=== PATIENT | male | born 1935 | race Caucasian/White ===

== ENCOUNTER 2019-08-16 13:09 | Inpatient (IN) | payer MEDICARE ==
--- NOTE | 2019-08-17 01:13 | P.HPIM ---
History of Present Illness H&P Date: 08/16/19 Chief Complaint: abd pain and coughing I was wearing full PPE during this encounter including N95 mask, face shield, double gloves, gown, and head cover. patient had a surgical mask on during my entire interview. i maintained 6 feet distance with the patient who verbalized understanding about these precautionary measures. except for during my physical exam where i had to be close to the patient. 83-year-old male with hypertension controlled with meds, gout, hyperlipidemia Patient was transferred from [facility] due to reaching capacity he tested positive for covid with 19 Patient wants to [facility] complaining of one-week history of abdominal pain described it as right upper quadrant pain radiating to the all the abdomen he rated his pain as 6 out of 10 in severity gets worse with coughing. He also reported no nausea no vomiting and denies any diarrhea. The symptoms has been associated with fevers and chills, and coughing dry in nature not associated with any shortness of breath. He reports loss of taste sensation. But otherwise denies any GI bleeding denies any urinary symptoms denies any focal neuro deficits He denies recent traveling denies sick contacts with any confirmed Covid pa erasmo's Transfers papers from [facility] has handwritten notes indicating that he tested positive for Covid 19, and he was being treated accordingly he was given doxycycline and Rocephin. CT angios of the chest showed patchy opacities bilaterally, there were no associated blood work or any further information, but it with these papers Review of Systems Pertinent positives as noted in HPI. All other systems were reviewed and are negative Past Medical History Past Medical History: Hypertension Additional Past Medical History / Comment(s): Gout, hyperlipidemia History of Any Multi-Drug Resistant Organisms: None Reported Smoking Status: Former smoker - Past Family History Family Family Medical History: No Reported History Medications and Allergies Home Medications Medication Instructions Recorded Confirmed Type Allopurinol [Zyloprim] 100 mg PO DAILY 08/16/19 08/16/19 History Aspirin EC [Ecotrin Low Dose] 81 mg PO DAILY 08/16/19 08/16/19 History Atorvastatin [Lipitor] 40 mg PO HS 08/16/19 08/16/19 History Celecoxib [CeleBREX] 100 mg PO BID PRN 08/16/19 08/16/19 History Irbesartan [Avapro] 150 mg PO DAILY 08/16/19 08/16/19 History Metoprolol Tartrate 25 mg PO BID 08/16/19 08/16/19 History Multivitamins, Thera [Multivitamin 1 tab PO DAILY 08/16/19 08/16/19 History (formulary)] Allergies Allergy/AdvReac Type Severity Reaction Status Date / Time No Known Allergies Allergy Verified 08/16/19 21:31 Physical Exam Vitals: Vital Signs Temp Pulse BP Pulse Ox 08/16/19 19:15 98.8 F 78 168/74 97 08/16/19 17:50 98.4 F 77 179/81 97 Intake and Output 08/16/19 08/16/19 08/17/19 14:59 22:59 06:59 Output Total 550 Balance -550 Output: Urine 550 Other: Voiding Method Urinal Urinal # Voids 1 Weight 85.729 kg Constitutional: No acute distress, conversant, pleasant, currently on room air Eyes: Anicteric sclerae, patient has conjunctivitis, Pupils equal round reactive to light ENMT: NC/AT Oropharynx clear, no erythema, or exudates Neck: Supple, FROM, no masses, or JVD No carotid bruits No thyromegaly Lungs: Clear to auscultation Clear to percussion Normal respiratory effort, no accessory muscle use Cardiovascular: Heart regular in rate and rhythm, No murmurs, gallops, or rubs No peripheral edema Abdominal: Soft Diffuse tenderness to palpation of the abdomen mainly in the right upper quadrant Mayberry sign negative there is voluntary guarding no rebound or rigidity Abdomen moving with respiration Normoactive bowel sounds No hepatomegaly, No splenomegaly No palpable mass Skin: Normal temperature, tone, texture, turgor No induration No subcutaneous nodules No rash, lesions No ulcers Extremities: No digital cyanosis No clubbing Pedal pulses intact and symmetrical Radial pulses intact and symmetrical No calf tenderness Psychiatric: Alert and oriented to person, place and time Appropriate affect fair judgement Neuro Muscles Strength 5/5 in all 4 extremities Sensation to light touch grossly present throughout Cranial nerves II-XII grossly intact No focal sensory deficits Lymphatics: no palpable cervical or supraclavicular , or inguinal lymph nodes Thrombosis Risk Factor Assmnt - Choose All That Apply Any of the Below Risk Factors Present?: Yes Each Factor Represents 1 point: Serious lung disease incl. pneumonia (< 1month) Other Risk Factors: Yes Each Risk Factor Represents 3 Points: Age 75 years or older Thrombosis Risk Factor Assessment Total Risk Factor Score: 4 Thrombosis Risk Factor Assessment Level: Moderate Risk Assessment and Plan Assessment: 83-year-old male with hypertension controlled with medications Patient transferred from [facility] due to reaching capacity. Patient diagnosed with Covid 19 confirmed by swab Patient is also having some significant abdominal pain upon exam, transfers drew r were deficient patient will have to have full workup during this hospital stay Anticipated length of stay more than 2 midnights Atypical pneumonia secondary to Covid 19 positive infection cannot rule out underlying bacterial infection Follow-up cultures Check influenza Covid 19 confirmed positive at [facility] Monitor pulse ox every 2 hours Supplemental oxygen to keep oxygen sats above 92% Start patient on Rocephin and doxycycline for bacterial and atypical pneumonias Start patient on Plaquenil due to confirmed testing and patient age patient is high risk Check EKG Check full set of labs for prognostic evaluation including d-dimer, from calcitonin, cRP, creatine kinase, LDH, troponin, Bnp, LFTs, CBC, ferritin, Contact and droplet precautions Maintain patient on negative IV fluid balance Abdominal pain without nausea vomiting or diarrhea Mainly right upper quadrant Check LFTs, check abdominal ultrasound Due to concerns regarding transmitting and spreading of this disease I will avoid CT of the abdomen at this time besides patient has already received CT angiogram of the chest at the other facility this will put him at increased risk of acute kidney injury Chronic conditions Hypertension, hyperlipidemia, gout Resume home meds Preformed a thorough record review from recent hospitalization from [facility] transfer papers were reviewed however they were deficient probably lost during transfer CODE STATUS:full code DVT prophylaxis: heaprin sc tid Discussed with: Patient, ER,rn Anticipated length of stay > than [address]: home A total of 60 minutes was spent on the care of this complex patient more than 50% of the time was spent in counseling and care coordination.
[2019-08-17] MEDS: METOPROLOL TARTRATE 25 MG TAB PO SCH ×3 (01:15→21:03)
[2019-08-17] MEDS: HYDROXYCHLOROQUINE SULFATE 200 MG TAB PO SCH ×3 (01:16→21:03)
[2019-08-17] MEDS: DOXYCYCLINE 100 MG CAP PO SCH ×3 (01:16→21:03)
--- NOTE | 2019-08-17 01:47 | XR ---
EXAMINATION TYPE: XR chest 1V DATE OF EXAM: 08/17/2019 COMPARISON: NONE HISTORY: Cough TECHNIQUE: Single view FINDINGS: There is mild pulmonary congestion. There is interstitial infiltrates in the lower lobes. T here is slight blunting of the costophrenic angles. There are chest leads. Bony thorax is intact. IMPRESSION: Mild congestive heart failure. Small pleural effusions.
[2019-08-17 01:52] LABS: Basophils % (A) 0 %; Eosinophils % (A) 1 %; HCT 42.4 % (39.0-53.0); HGB 13.8 gm/dL (13.0-17.5); Lymphocytes # (A) 0.9 k/uL (1.0-4.8); Lymphocytes % (A) 26 %; MCH 23.3 pg (25.0-35.0); MCHC 32.6 g/dL (31.0-37.0); MCV 71.3 fL (80.0-100.0); Microcytosis Moderate; Monocytes # (A) 0.2 k/uL (0-1.0); Monocytes % (A) 5 %; Neutrophils # (A) 2.2 k/uL (1.3-7.7); Neutrophils % (A) 65 %; RBC 5.94 m/uL (4.30-5.90); RDW 14.6 % (11.5-15.5); WBC 3.3 k/uL (3.8-10.6)
[2019-08-17 02:05] LABS: ALT 40 U/L (4-49); AST 72 U/L (17-59); African American GFR (CKD) >90 (>60 ml/min/1.73 sqM); Albumin 3.7 g/dL (3.5-5.0); Alkaline Phosphatase 54 U/L (38-126); Anion Gap 9 mmol/L; Blood Urea Nitrogen 15 mg/dL (9-20); C Reactive Protein 32.4 mg/L (<10.0); Calcium 7.8 mg/dL (8.4-10.2); Carbon Dioxide 21 mmol/L (22-30); Chloride 96 mmol/L (98-107); Creatine Kinase 654 U/L (55-170); Glucose 112 mg/dL (74-99); LDH 882 U/L (313-618); Non-African American GFR(CKD) 82 (>60 ml/min/1.73 sqM); Phosphorus 2.6 mg/dL (2.5-4.5); Sodium 126 mmol/L (137-145); Total Bilirubin 0.7 mg/dL (0.2-1.3); Total Protein 6.9 g/dL (6.3-8.2)
[2019-08-17 02:10] LABS: Ovalocytes Present; Platelet Count 52 k/uL (150-450)
[2019-08-17 02:11] LABS: D-Dimer 0.57 mg/L FEU (<0.60)
[2019-08-17 03:30] LABS: Appearance,Urine Clear (Clear); Bilirubin,Urine Negative (Negative); Blood,Urine Small (Negative); Color,Urine Yellow; Glucose,Urine (UA) Negative (Negative); Ketones,Urine 1+ (Negative); Leukocyte Esterase,Urine Negative (Negative); Mucus,Urine Rare /hpf; Nitrite,Urine Negative (Negative); Protein,Urine 1+ (Negative); RBC,Urine 6 /hpf (0-5); Specific Gravity,Urine 1.028 (1.001-1.035); Urobilinogen,Urine <2.0 mg/dL (<2.0); WBC,Urine 1 /hpf (0-5)
[2019-08-17] MEDS: ALLOPURINOL 100 MG TAB PO SCH (08:32)
[2019-08-17] MEDS: HEPARIN SODIUM,PORCINE 5,000 UNIT/ML 1 ML VIAL SQ SCH ×3 (08:32→23:22)
[2019-08-17] MEDS: LOSARTAN 50 MG TAB PO SCH (08:32)
[2019-08-17] MEDS: ASPIRIN 81 MG PO SCH (08:33)
--- NOTE | 2019-08-17 08:50 | US ---
EXAMINATION TYPE: US abdomen complete DATE OF EXAM: 08/17/2019 COMPARISON: NONE CLINICAL HISTORY: RUQ abd pain . + Hicks. Generalized pain. NPO. Suboptimal exam due to patient breathing and bowel gas EXAM MEASUREMENTS: Liver Length: 13.2 cm Gallbladder Wall: 0.2 cm CBD: 0.3 cm Spleen: 10.6 cm Right Kidney: 10.2 x 5.4 x 4.8 cm Left Kidney: 10.1 x 4.5 x 5.1 cm Pancreas: Obscured by bowel gas Liver: Limited visualization due to ribs, bowel gas and patient breathing. Gallbladder: No stones seen Evidence for sonographic Mayberry's sign: neg CBD: wnl Spleen: wnl Right Kidney: No hydronephrosis or masses seen Left Kidney: No hydronephrosis or masses seen Upper IVC: limited visualization Abd Aorta: Mid portion obscured by overlying bowel gas The pancreas is obscured. Limited views of the liver demonstrate a normal sized liver without biliary dilatation. The gallbladder is normal. The gallbladder wall measures 2 mm. The distal common hepatic duct measure s 3 mm. There is no sonographic Mayberry's sign. Both kidneys are unremarkable. Limited views of the aorta and IVC are normal. IMPRESSION: NORMAL ABDOMINAL ULTRASOUND.
[2019-08-17 11:42] LABS: Ferritin 1504.8 ng/mL (22.0-322.0)
[2019-08-17] MEDS: ACETAMINOPHEN TAB 325 MG TAB PO PRN (14:56)
--- NOTE | 2019-08-17 17:56 | P.PN ---
Subjective Progress Note Date: 08/17/19 (delayed charting seen at 1020) Principal diagnosis: shortness of breath Patient is an 83-year-old male with a past medical history of hypertension controlled with medication, gout, and dyslipidemia who presented to [facility] with a one-week history of right upper quadrant pain and coughing. He was transferred here as part of the [facility] relief process. He underwent a CT of the chest which showed patchy opacities bilaterally. He was started on Doxy and hydroxychloroquine. He had fevers up to 101.9 on the night of admission. Laboratory analysis showed lymphopenia, hyponatremia, elevated ferritin, AST 72, LDH 882, CPK 654, and CRP 32.4. Pro-calcitonin was negative. Influenza A and B were negative. Chest x-ray showed bilateral interstitial infiltrates in the lower lobes. He underwent an abdominal ultrasound which was nonacute. Patient seen and examined at bedside. He denies any pain, shortness of breath, cough, nausea, vomiting. Objective - Vital Signs Vital signs: Vital Signs Temp 100.5 F H 08/17/19 15:00 Pulse 92 08/17/19 15:00 Resp 18 08/17/19 15:30 BP 123/77 08/17/19 15:00 Pulse Ox 94 L 08/17/19 15:00 Intake & Output 08/16/19 08/17/19 08/17/19 18:59 06:59 18:59 Intake Total 514 Output Total 550 Balance -550 514 Weight 85.729 kg Intake: Oral 514 Output: Urine 550 Other: Voiding Method Urinal # Voids 1 1 - Exam General: Ill appearing, I'll distress, appears at stated age Derm: warm, dry Head: atraumatic, normocephalic, symmetric Eyes: EOMI, no lid lag, anicteric sclera Mouth: no lip lesion, mucus membranes moist Cardiovascular: S1S2 reg, no murmur, positive posterior tibial pulse bilateral, Lungs: Coarse breath sounds bilateral, no accessory muscle use Abdominal: soft, nontender to palpation, no guarding, no appreciable organomegaly Ext: no gross muscle atrophy, no edema, no contractures Neuro: CN II-XI grossly intact, no focal neuro deficits Psych: Alert, oriented, flat affect - Labs CBC & Chem 7: 08/17/19 01:29 08/17/19 01:29 Labs: Abnormal Lab Results - Last 24 Hours (Table) 08/17/19 08/17/19 08/17/19 Range/Units 01:29 01:29 03:00 WBC 3.3 L (3.8-10.6) k/uL RBC 5.94 H (4.30-5.90) m/uL MCV 71.3 L (80.0-100.0) fL MCH 23.3 L (25.0-35.0) pg Plt Count 52 L (150-450) k/uL Lymphocytes # 0.9 L (1.0-4.8) k/uL Sodium 126 L (137-145) mmol/L Chloride 96 L (98-107) mmol/L Carbon Dioxide 21 L (22-30) mmol/L Glucose 112 H (74-99) mg/dL Calcium 7.8 L (8.4-10.2) mg/dL Ferritin 1504.8 H (22.0-322.0) ng/mL AST 72 H (17-59) U/L Lactate Dehydrogenase 882 H (313-618) U/L Creatine Kinase 654 H (55-170) U/L C-Reactive Protein 32.4 H (<10.0) mg/L Urine Protein 1+ H (Negative) Urine Ketones 1+ H (Negative) Urine Blood Small H (Negative) Urine RBC 6 H (0-5) /hpf Urine Mucus Rare H (None) /hpf Assessment and Plan Assessment: Bilateral pneumonia, atypical consistent with possible covert 19 infection acute hypoxic respiratory failure -On hydroxychloroquine -Limit fluids -Supportive care -Continue with doxycycline doubt bacterial pneumonia with negative prophylaxis: -Limit IV fluids -Follow d-dimer, ferritin, LDH, CPK, and CRP Hyponatremia undetermined cause -Encourage oral fluid intake -Repeat BMP and add fluids if continues to be low -Repeat BMP in a.m. Thrombocytopenia, suspect reactive -Follow CBC Hypertension -Continue with metoprolol and ARB -Follow blood pressures Dyslipidemia -Continue statin therapy DVT prophylaxis: Heparin Discussed with: patient, son Anticipated discharge: 2-[address]: home A total of 35 minutes was spent on the care of this complex patient more than 50% of the time was spent in counseling and care coordination.
[2019-08-17] MEDS: SODIUM CHLORIDE 0.9% 1,000 ML IV SCH (18:04)
[2019-08-17 18:06] LABS: Potassium 4.2 mmol/L (3.5-5.1)
[2019-08-17] MEDS: ATORVASTATIN 40 MG TAB PO SCH (21:03)
[2019-08-18] MEDS: ACETAMINOPHEN TAB 325 MG TAB PO PRN ×2 (04:17→16:58)
[2019-08-18 07:43] LABS: Basophils % (A) 1 %; Eosinophils % (A) 0 %; HCT 40.3 % (39.0-53.0); HGB 12.9 gm/dL (13.0-17.5); Lymphocytes % (A) 34 %; MCH 23.2 pg (25.0-35.0); MCV 72.3 fL (80.0-100.0); Microcytosis Slight; Monocytes # (A) 0.2 k/uL (0-1.0); Monocytes % (A) 5 %; Neutrophils # (A) 1.7 k/uL (1.3-7.7); Neutrophils % (A) 57 %; RBC 5.57 m/uL (4.30-5.90); RDW 14.7 % (11.5-15.5); WBC 3.1 k/uL (3.8-10.6)
[2019-08-18 07:49] LABS: Platelet Count 76 k/uL (150-450)
[2019-08-18 07:56] LABS: Albumin 3.1 g/dL (3.5-5.0); Calcium 7.5 mg/dL (8.4-10.2); Potassium 4.3 mmol/L (3.5-5.1); Total Bilirubin 0.7 mg/dL (0.2-1.3)
[2019-08-18] MEDS: DOXYCYCLINE 100 MG CAP PO SCH (08:36)
[2019-08-18] MEDS: METOPROLOL TARTRATE 25 MG TAB PO SCH ×2 (08:36→21:15)
[2019-08-18] MEDS: HEPARIN SODIUM,PORCINE 5,000 UNIT/ML 1 ML VIAL SQ SCH ×3 (08:36→23:36)
[2019-08-18] MEDS: HYDROXYCHLOROQUINE SULFATE 200 MG TAB PO SCH ×2 (08:36→21:15)
[2019-08-18] MEDS: LOSARTAN 50 MG TAB PO SCH (08:36)
[2019-08-18] MEDS: ASPIRIN 81 MG PO SCH (08:37)
[2019-08-18] MEDS: ALLOPURINOL 100 MG TAB PO SCH (08:37)
[2019-08-18] MEDS: SODIUM CHLORIDE 0.9% 1,000 ML IV SCH ×2 (08:37→21:16)
--- NOTE | 2019-08-18 09:15 | XR ---
EXAMINATION TYPE: XR chest 1V portable DATE OF EXAM: 08/18/2019 HISTORY: pneumonia. REFERENCE: Previous study dated 08/17/2019. FINDINGS: The heart is mildly prominent. Pulmonary vasculature has returned to normal. There are patc hy peripheral infiltrates present bilaterally. The heart is enlarged. A new metallic density projects over the thoracic aorta. I am uncertain as to the etiology of this. Pleural spaces are clear.. IMPRESSION: 1. CARDIOMEGALY. 2. METALLIC FOREIGN BODY PROJECTS OVER THE CHEST. 3. PATCHY BILATERAL INFILTRATES MAY HAVE WORSENED SLIGHTLY FROM THE PREVIOUS STUDY. IMPRESSION:
[2019-08-18] MEDS: ZINC SULFATE 220 MG CAP PO SCH (10:44)
--- NOTE | 2019-08-18 15:37 | P.PN ---
Subjective Progress Note Date: 08/18/19 (delayed charting seen at 1130) Principal diagnosis: shortness of breath Patient is an 83-year-old [place] male with a past medical history of hypertension controlled with medication, gout, and dyslipidemia who presented to [facility] with a one-week history of right upper quadrant pain and coughing. He was transferred here as part of the Covnh relief process. He underwent a CT of the chest which showed patchy opacities bilaterally. He was started on Doxy and hydroxychloroquine. He had fevers up to 101.9 on the night of admission. Laboratory analysis showed lymphopenia, hyponatremia, elevated ferritin, AST 72, LDH 882, CPK 654, and CRP 32.4. Pro-calcitonin was negative. Influenza A and B were negative. Chest x-ray showed bilateral interstitial infiltrates in the lower lobes. He underwent an abdominal ultrasound which was nonacute. He continued to spike fevers after admission with a T-max of 100.5 on 08/17/2019. Patient seen and examined at bedside. He appears more comfortable today. He again denies chest pain, shortness breath, nausea, vomiting. Still not eating much. Objective - Vital Signs Vital signs: Vital Signs Temp 100.0 F H 08/18/19 15:03 Pulse 81 08/18/19 15:03 Resp 18 08/18/19 15:03 BP 152/76 08/18/19 15:03 Pulse Ox 94 L 08/18/19 15:03 Intake & Output 08/17/19 08/18/19 08/18/19 18:59 06:59 18:59 Intake Total 514 150 875 Balance 514 150 875 Intake: Intake, IV Titration 600 Amount Sodium Chloride 0.9% 1, 600 000 ml @ 75 mls/hr IV . [id number] [facility] Rx#:[id number] Oral 514 150 275 Other: Voiding Method Urinal # Voids 1 1 1 - Exam General: Ill appearing, no distress, appears at stated age Derm: warm, dry Head: atraumatic, normocephalic, symmetric Eyes: EOMI, no lid lag, anicteric sclera Mouth: no lip lesion, mucus membranes dry Cardiovascular: S1S2 reg, no murmur, positive posterior tibial pulse bilateral, Lungs: Coarse breath sounds bilateral, no accessory muscle use Abdominal: soft, nontender to palpation, no guarding, no appreciable organomegaly Ext: no gross muscle atrophy, no edema, no contractures Neuro: CN II-XI grossly intact, no focal neuro deficits Psych: Alert, oriented, flat affect - Labs CBC & Chem 7: 08/18/19 07:17 08/18/19 07:17 Labs: Abnormal Lab Results - Last 24 Hours (Table) 08/17/19 08/18/19 08/18/19 Range/Units 17:39 07:17 07:17 WBC 3.1 L (3.8-10.6) k/uL Hgb 12.9 L (13.0-17.5) gm/dL MCV 72.3 L (80.0-100.0) fL MCH 23.2 L (25.0-35.0) pg Plt Count 76 L (150-450) k/uL Sodium 129 L 130 L (137-145) mmol/L Chloride 96 L (98-107) mmol/L Carbon Dioxide 19 L (22-30) mmol/L Glucose 123 H (74-99) mg/dL Calcium 8.0 L 7.5 L (8.4-10.2) mg/dL AST 110 H (17-59) U/L ALT 74 H (4-49) U/L Total Protein 6.0 L (6.3-8.2) g/dL Albumin 3.1 L (3.5-5.0) g/dL Microbiology - Last 24 Hours (Table) 08/17/19 01:29 Blood Culture - Preliminary Blood No Growth after 24 hours Assessment and Plan Assessment: Bilateral pneumonia due to COVID-19 infection, acute hypoxic respiratory failure -On hydroxychloroquine -Limit fluids -Supportive care -stop doxy -Limit IV fluids -Follow d-dimer, ferritin, LDH, CPK, and CRP Transaminitis due to above - continue to monitor Hyponatremia due to hypovolemia -Encourage oral fluid intake - IV fluids gentle with infection -Repeat BMP in a.m. Thrombocytopenia, suspect reactive -Follow CBC Hypertension -Continue with metoprolol and ARB -Follow blood pressures Dyslipidemia -Continue statin therapy Son update on + COVID 19 PCR, Son is a physician in [place]. [phone] The patient cannot be safely quarantined at home due to: - Hypoxic Respiratory failure as describe by increasing oxygen from 0-2 L nasal cannula and concomitant lowering of oxygen saturations DVT prophylaxis: Heparin Discussed with: patient, son Anticipated discharge: 2-[address]: home A total of 35 minutes was spent on the care of this complex patient more than 50% of the time was spent in counseling and care coordination.
[2019-08-18] MEDS: ATORVASTATIN 40 MG TAB PO SCH (21:16)
[2019-08-19] MEDS: ACETAMINOPHEN TAB 325 MG TAB PO PRN ×2 (03:51→12:58)
[2019-08-19 06:56] LABS: Basophils % (A) 0 %; Eosinophils % (A) 0 %; HGB 12.3 gm/dL (13.0-17.5); Lymphocytes # (A) 0.8 k/uL (1.0-4.8); Lymphocytes % (A) 25 %; MCH 22.5 pg (25.0-35.0); MCHC 31.5 g/dL (31.0-37.0); MCV 71.3 fL (80.0-100.0); Mean Platelet Volume 7.8; Microcytosis Moderate; Monocytes # (A) 0.1 k/uL (0-1.0); Monocytes % (A) 4 %; Neutrophils # (A) 2.1 k/uL (1.3-7.7); Neutrophils % (A) 68 %; Platelet Count 105 k/uL (150-450); RBC 5.48 m/uL (4.30-5.90); RDW 14.6 % (11.5-15.5); WBC 3.1 k/uL (3.8-10.6)
[2019-08-19 07:06] LABS: C Reactive Protein 46.8 mg/L (<10.0)
[2019-08-19 07:24] LABS: ALT 91 U/L (4-49); AST 124 U/L (17-59); African American GFR (CKD) >90 (>60 ml/min/1.73 sqM); Albumin 2.9 g/dL (3.5-5.0); Alkaline Phosphatase 56 U/L (38-126); Anion Gap 8 mmol/L; Blood Urea Nitrogen 15 mg/dL (9-20); Calcium 7.3 mg/dL (8.4-10.2); Carbon Dioxide 20 mmol/L (22-30); Chloride 102 mmol/L (98-107); Creatine Kinase 740 U/L (55-170); Glucose 92 mg/dL (74-99); LDH 1378 U/L (313-618); Non-African American GFR(CKD) 81 (>60 ml/min/1.73 sqM); Sodium 130 mmol/L (137-145); Total Bilirubin 0.8 mg/dL (0.2-1.3); Total Protein 5.7 g/dL (6.3-8.2)
[2019-08-19] MEDS: ZINC SULFATE 220 MG CAP PO SCH (08:30)
[2019-08-19] MEDS: METOPROLOL TARTRATE 25 MG TAB PO SCH ×2 (08:30→20:30)
[2019-08-19] MEDS: ALLOPURINOL 100 MG TAB PO SCH (08:30)
[2019-08-19] MEDS: LOSARTAN 50 MG TAB PO SCH (08:30)
[2019-08-19] MEDS: HEPARIN SODIUM,PORCINE 5,000 UNIT/ML 1 ML VIAL SQ SCH ×2 (08:30→17:06)
[2019-08-19] MEDS: ASPIRIN 81 MG PO SCH (08:30)
[2019-08-19] MEDS: HYDROXYCHLOROQUINE SULFATE 200 MG TAB PO SCH ×2 (08:31→20:30)
[2019-08-19 13:07] LABS: Ferritin 2490.4 ng/mL (22.0-322.0)
--- NOTE | 2019-08-19 13:18 | P.PN ---
<Gabriela Hodge - Last Filed: 08/19/19 13:18> Subjective Progress Note Date: 08/19/19 CHIEF COMPLAINT: Covid 19 HISTORY OF PRESENT ILLNESS: 08/18/2019: Patient is an 83-year-old [place] male with a past medical history of hypertension controlled with medication, gout, and dyslipidemia who presented to [facility] with a one-week history of right upper quadrant pain and coughing. He was transferred here as part of the Covid relief process. He underwent a CT of the chest which showed patchy opacities bilaterally. He was started on Doxy and hydroxychloroquine. He had fevers up to 101.9 on the night of admission. Laboratory analysis showed lymphopenia, hyponatremia, elevated ferritin, AST 72, LDH 882, CPK 654, and CRP 32.4. Pro-calcitonin was negative. Influenza A and B were negative. Chest x-ray showed bilateral interstitial infiltrates in the lower lobes. He underwent an abdominal ultrasound which was nonacute. He continued to spike fevers after admission with a T-max of 100.5 on 08/17/2019. 08/19/2019: Patient examined at the bedside. Nursing reports patient was refusing to wear nasal cannula this morning. He is now agreeable to wear his oxygen. He is currently on 4L NC. 02 sats 94%. Patient febrile 100.7. He denies shortness of breath. Reports minimal cough. WBC 3.1. Hemoglobin 12.3. Platelet count 105. Ferritin 2490. LDH 1378. Creatinine kinase 740. C-reactive protein 46.8. PHYSICAL EXAM: VITAL SIGNS: Reviewed GENERAL: Well-developed in no acute distress. HEENT: No sclera icterus. Extraocular movements grossly intact. Moist buccal mucosa. Head is atraumatic, normocephalic. Hears conversational speech. No nasal drainage. NECK: Supple without lymphadenopathy. CHEST: Lung sounds coarse throughout. Non-labored respirations and equal bilateral excursions. CARDIOVASCULAR: Regular rate with regular rhythm. Palpable pulses. ABDOMEN: Soft. Nondistended. Nontender. MUSCULOSKELETAL: No clubbing or cyanosis. NEUROLOGIC: No focal or lateralizing signs. Cranial nerves II through XII grossly intact. PSYCH: Appropriate affect. Alert and oriented to person, place and time. SKIN: Well perfused. Good skin turgor. ASSESSMENT AND PLAN: 1. Bilateral pneumonia secondary to acute Covid 19 infection, acute hypoxic respiratory failure -Supportive care -Continue Plaquenil -Continue to monitor labs -Limit IV fluids -Continue contact and droplet isolation precautions -Continue zinc 2. Transaminitis, secondary to above -Continue to monitor 3. Hyponatremia secondary to hypovolemia -Continue to monitor sodium levels -Encourage oral intake -Limit IV fluids secondary to acute Covid 19 infection 4. Thrombocytopenia -Continue to monitor 5. Hypertension -Continue metoprolol and Cozaar -Monitor blood pressure 6. Dyslipidemia -Continue statin therapy DVT prophylaxis: Heparin subcu Discussed with: Nursing, patient Anticipated discharge: To be determined. Possibly within the next 48 hours if patient remains stable and continues to show improvement Anticipated discharge place: Home Nurse practitioner note has been reviewed by physician. Signing provider agrees with the documented findings, assessment, and plan of care. Objective - Vital Signs Vital signs: Vital Signs Temp 100.7 F H 08/19/19 11:02 Pulse 80 08/19/19 11:02 Resp 20 08/19/19 11:02 BP 137/61 08/19/19 11:02 Pulse Ox 94 L 08/19/19 11:02 Intake & Output 08/18/19 08/19/19 08/19/19 18:59 06:59 18:59 Intake Total 875 825 Balance 875 825 Intake: Intake, IV Titration 600 375 Amount Sodium Chloride 0.9% 1, 600 375 000 ml @ 75 mls/hr IV . [id number] [facility] Rx#:[id number] Oral 275 450 Other: Voiding Method Urinal # Voids 1 2 - Labs CBC & Chem 7: 08/19/19 05:45 08/19/19 05:45 Labs: Abnormal Lab Results - Last 24 Hours (Table) 08/19/19 08/19/19 Range/Units 05:45 05:45 WBC 3.1 L (3.8-10.6) k/uL Hgb 12.3 L (13.0-17.5) gm/dL MCV 71.3 L (80.0-100.0) fL MCH 22.5 L (25.0-35.0) pg Plt Count 105 L (150-450) k/uL Lymphocytes # 0.8 L (1.0-4.8) k/uL Sodium 130 L (137-145) mmol/L Carbon Dioxide 20 L (22-30) mmol/L Calcium 7.3 L (8.4-10.2) mg/dL AST 124 H (17-59) U/L ALT 91 H (4-49) U/L Lactate Dehydrogenase 1378 H (313-618) U/L Creatine Kinase 740 H (55-170) U/L C-Reactive Protein 46.8 H (<10.0) mg/L Total Protein 5.7 L (6.3-8.2) g/dL Albumin 2.9 L (3.5-5.0) g/dL Microbiology - Last 24 Hours (Table) 08/17/19 01:29 Blood Culture - Preliminary Blood No Growth after 48 hours <John Bonilla - Last Filed: 08/19/19 17:47> Objective - Vital Signs Vital signs: Vital Signs Temp 98.5 F 08/19/19 14:57 Pulse 88 08/19/19 14:57 Resp 18 08/19/19 17:08 BP 133/76 08/19/19 14:57 Pulse Ox 95 08/19/19 17:08 Intake & Output 08/18/19 08/19/19 08/19/19 18:59 06:59 18:59 Intake Total 875 825 Balance 875 825 Intake: Intake, IV Titration 600 375 Amount Sodium Chloride 0.9% 1, 600 375 000 ml @ 75 mls/hr IV . [id number] [facility] Rx#:[id number] Oral 275 450 Other: Voiding Method Urinal # Voids 1 2 1 - Labs CBC & Chem 7: 08/19/19 05:45 08/19/19 05:45 Labs: Abnormal Lab Results - Last 24 Hours (Table) 08/19/19 08/19/19 Range/Units 05:45 05:45 WBC 3.1 L (3.8-10.6) k/uL Hgb 12.3 L (13.0-17.5) gm/dL MCV 71.3 L (80.0-100.0) fL MCH 22.5 L (25.0-35.0) pg Plt Count 105 L (150-450) k/uL Lymphocytes # 0.8 L (1.0-4.8) k/uL Sodium 130 L (137-145) mmol/L Carbon Dioxide 20 L (22-30) mmol/L Calcium 7.3 L (8.4-10.2) mg/dL Ferritin 2490.4 H (22.0-322.0) ng/mL AST 124 H (17-59) U/L ALT 91 H (4-49) U/L Lactate Dehydrogenase 1378 H (313-618) U/L Creatine Kinase 740 H (55-170) U/L C-Reactive Protein 46.8 H (<10.0) mg/L Total Protein 5.7 L (6.3-8.2) g/dL Albumin 2.9 L (3.5-5.0) g/dL Microbiology - Last 24 Hours (Table) 08/17/19 01:29 Blood Culture - Preliminary Blood No Growth after 48 hours Assessment and Plan Assessment: I saw and evaluated the patient and discussed the care with [Ivis Hodge], HERLINDA on [08/19/2019]. I agree with the subjective, assessment and plan as documented in the note above. Patient continues to require 4 L nasal cannula to maintain O2 saturation greater than 90%. His sodium is slightly improved from 126 to 130 with IVF. Will continue present management and attempt to wean off the oxygen. Repeat CMP ordered for tomorrow morning to evaluate his liver function along with sodium. Repeat chest x-ray tomorrow morning. Physical exam: General: [Ill appearing], [mild distress on 4L NC] Skin: [warm], [dry], [diaphoretic] Lungs: [chest rise symmetrical], [no accessory muscle use], [ 3 wordconversational dyspnea] Cardiovascular: [ + dorsal pedis pulse bilateral], [capillary refill<2 seconds] [no lower extremity edema]
[2019-08-19] MEDS: SODIUM CHLORIDE 0.9% 1,000 ML IV SCH (16:55)
[2019-08-19] MEDS: ATORVASTATIN 40 MG TAB PO SCH (20:30)
[2019-08-20] MEDS: HEPARIN SODIUM,PORCINE 5,000 UNIT/ML 1 ML VIAL SQ SCH ×3 (00:13→16:01)
[2019-08-20] MEDS: SODIUM CHLORIDE 0.9% 1,000 ML IV SCH ×2 (04:44→12:27)
[2019-08-20 07:14] LABS: ALT 116 U/L (4-49); AST 176 U/L (17-59); African American GFR (CKD) >90 (>60 ml/min/1.73 sqM); Alkaline Phosphatase 71 U/L (38-126); Anion Gap 10 mmol/L; Blood Urea Nitrogen 13 mg/dL (9-20); Calcium 7.5 mg/dL (8.4-10.2); Carbon Dioxide 18 mmol/L (22-30); Chloride 103 mmol/L (98-107); Glucose 103 mg/dL (74-99); Non-African American GFR(CKD) 84 (>60 ml/min/1.73 sqM); Potassium 3.9 mmol/L (3.5-5.1); Sodium 131 mmol/L (137-145)
[2019-08-20 07:43] LABS: Basophils % (A) 0 %; Eosinophils % (A) 0 %; HCT 40.5 % (39.0-53.0); Lymphocytes # (A) 1.1 k/uL (1.0-4.8); Lymphocytes % (A) 23 %; MCH 22.8 pg (25.0-35.0); MCV 71.1 fL (80.0-100.0); Mean Platelet Volume 7.7; Microcytosis Moderate; Monocytes # (A) 0.2 k/uL (0-1.0); Monocytes % (A) 4 %; Neutrophils # (A) 3.4 k/uL (1.3-7.7); Neutrophils % (A) 71 %; Platelet Count 125 k/uL (150-450); RBC 5.69 m/uL (4.30-5.90); RDW 14.3 % (11.5-15.5); WBC 4.8 k/uL (3.8-10.6)
[2019-08-20] MEDS: ZINC SULFATE 220 MG CAP PO SCH (08:11)
[2019-08-20] MEDS: ALLOPURINOL 100 MG TAB PO SCH (08:11)
[2019-08-20] MEDS: METOPROLOL TARTRATE 25 MG TAB PO SCH ×2 (08:11→20:23)
[2019-08-20] MEDS: ASPIRIN 81 MG PO SCH (08:12)
[2019-08-20] MEDS: LOSARTAN 50 MG TAB PO SCH (08:12)
[2019-08-20] MEDS: HYDROXYCHLOROQUINE SULFATE 200 MG TAB PO SCH ×2 (08:12→21:21)
--- NOTE | 2019-08-20 08:15 | XR ---
EXAMINATION TYPE: XR chest 1V portable DATE OF EXAM: 08/20/2019 Comparison: 08/18/2019 Clinical History: 83-year-old male COVID PNA Findings: Heart upper limits of normal in size. Diffuse interstitial and patchy airspace opacities, slightly wo rsened from prior exam. Impression: Diffuse interstitial and patchy airspace disease, slightly worsened from prior exam.
--- NOTE | 2019-08-20 10:45 | P.PN ---
<Gabriela Hodge Jenni - Last Filed: 08/20/19 10:40> Subjective Progress Note Date: 08/20/19 CHIEF COMPLAINT: Covid 19 HISTORY OF PRESENT ILLNESS: 08/18/2019: Patient is an 83-year-old Pakistani male with a past medical history of hypertension controlled with medication, gout, and dyslipidemia who presented to [facility] with a one-week history of right upper quadrant pain and coughing. He was transferred here as part of the Covid relief process. He underwent a CT of the chest which showed patchy opacities bilaterally. He was started on Doxy and hydroxychloroquine. He had fevers up to 101.9 on the night of admission. Laboratory analysis showed lymphopenia, hyponatremia, elevated ferritin, AST 72, LDH 882, CPK 654, and CRP 32.4. Pro-calcitonin was negative. Influenza A and B were negative. Chest x-ray showed bilateral interstitial infiltrates in the lower lobes. He underwent an abdominal ultrasound which was nonacute. He continued to spike fevers after admission with a T-max of 100.5 on 08/17/2019. 08/19/2019: Patient examined at the bedside. Nursing reports patient was refusing to wear nasal cannula this morning. He is now agreeable to wear his oxygen. He is currently on 4L NC. 02 sats 94%. Patient febrile 100.7. He denies shortness of breath. Reports minimal cough. WBC 3.1. Hemoglobin 12.3. Platelet count 105. Ferritin 2490. LDH 1378. Creatinine kinase 740. C-reactive protein 46.8. 08/20/2019: Patient examined this morning at the bedside. He is on 6L NC. O2 sats 94%. He denies shortness of breath. He is afebrile. Sodium up to 131. Repeat chest x-ray this morning reveals diffuse interstitial and patchy airspace disease, slightly worsened from prior exam PHYSICAL EXAM: VITAL SIGNS: Reviewed GENERAL: Well-developed in no acute distress. HEENT: No sclera icterus. Extraocular movements grossly intact. Moist buccal mucosa. Head is atraumatic, normocephalic. Hears conversational speech. No nasal drainag e. NECK: Supple without lymphadenopathy. CHEST: Lung sounds coarse throughout. Non-labored respirations and equal bilateral excursions. CARDIOVASCULAR: Regular rate with regular rhythm. Palpable pulses. ABDOMEN: Soft. Nondistended. Nontender. MUSCULOSKELETAL: No clubbing or cyanosis. NEUROLOGIC: No focal or lateralizing signs. Cranial nerves II through XII grossly intact. PSYCH: Appropriate affect. Alert and oriented to person, place and time. SKIN: Well perfused. Good skin turgor. ASSESSMENT AND PLAN: 1. Bilateral pneumonia secondary to acute Covid 19 infection, acute hypoxic respiratory failure -Supportive care -Continue Plaquenil -Continue to monitor labs -Limit IV fluids -Continue contact and droplet isolation precautions -Continue zinc -Wean oxygen as tolerated -Encouraged awake proning 2. Transaminitis, secondary to above -Continue to monitor 3. Hyponatremia secondary to hypovolemia -Slowly improving -Continue to monitor sodium levels -Encourage oral intake -Limit IV fluids secondary to acute Covid 19 infection 4. Thrombocytopenia -Slowly improving -Continue to monitor 5. Hypertension -Continue metoprolol and Cozaar -Monitor blood pressure 6. Dyslipidemia -Continue statin therapy DVT prophylaxis: Heparin subcu Discussed with: Nursing, patient Anticipated discharge: To be determined. Possibly within the next 48 hours if patient remains stable and continues to show improvement Anticipated discharge place: Home Nurse practitioner note has been reviewed by physician. Signing provider agrees with the documented findings, assessment, and plan of care. Objective - Vital Signs Vital signs: Vital Signs Temp 98.9 F 08/20/19 07:00 Pulse 95 08/20/19 07:00 Resp 20 08/20/19 07:00 BP 151/81 08/20/19 07:00 Pulse Ox 94 L 08/20/19 08:14 Intake & Output 08/19/19 08/20/19 08/20/19 18:59 06:59 18:59 Other: Voiding Method Urinal # Voids 1 - Labs CBC & Chem 7: 08/20/19 06:41 08/20/19 06:41 Labs: Abnormal Lab Results - Last 24 Hours (Table) 08/19/19 08/20/19 08/20/19 Range/Units 05:45 06:41 06:41 MCV 71.1 L (80.0-100.0) fL MCH 22.8 L (25.0-35.0) pg Plt Count 125 L (150-450) k/uL Sodium 131 L (137-145) mmol/L Carbon Dioxide 18 L (22-30) mmol/L Glucose 103 H (74-99) mg/dL Calcium 7.5 L (8.4-10.2) mg/dL Ferritin 2490.4 H (22.0-322.0) ng/mL AST 176 H (17-59) U/L ALT 116 H (4-49) U/L Total Protein 6.0 L (6.3-8.2) g/dL Albumin 3.0 L (3.5-5.0) g/dL Microbiology - Last 24 Hours (Table) 08/17/19 01:29 Blood Culture - Preliminary Blood No Growth after 72 hours <John Bonilla - Last Filed: 08/20/19 16:58> Objective - Vital Signs Vital signs: Vital Signs Temp 99.4 F 08/20/19 15:00 Pulse 83 08/20/19 15:00 Resp 18 08/20/19 15:00 BP 135/69 08/20/19 15:00 Pulse Ox 88 L 08/20/19 15:00 Intake & Output 08/19/19 08/20/19 08/20/19 18:59 06:59 18:59 Other: Voiding Method Urinal Indwelling Catheter # Voids 1 2 - Labs CBC & Chem 7: 08/20/19 06:41 08/20/19 06:41 Labs: Abnormal Lab Results - Last 24 Hours (Table) 08/20/19 08/20/19 Range/Units 06:41 06:41 MCV 71.1 L (80.0-100.0) fL MCH 22.8 L (25.0-35.0) pg Plt Count 125 L (150-450) k/uL Sodium 131 L (137-145) mmol/L Carbon Dioxide 18 L (22-30) mmol/L Glucose 103 H (74-99) mg/dL Calcium 7.5 L (8.4-10.2) mg/dL AST 176 H (17-59) U/L ALT 116 H (4-49) U/L Total Protein 6.0 L (6.3-8.2) g/dL Albumin 3.0 L (3.5-5.0) g/dL Microbiology - Last 24 Hours (Table) 08/17/19 01:29 Blood Culture - Preliminary Blood No Growth after 72 hours Assessment and Plan Assessment: I saw and evaluated the patient and discussed the care with [Ivis Hodge], HERLINDA on [08/20/2019]. I agree with the subjective, assessment and plan as documented in the note above. Received a page from nursing that patient's oxygen requirements have gone up to 12 L (When I had seen the patient he was sleeping comfortably on 6 L NC). Pulmonology was consulted and recommended admission to ICU. His sodium is slightly improved from 126 to 131 with IVF. He is low threshold for intubation. Prognosis is guarded. Physical exam: General: [Ill appearing], [mild distress on 6 L NC] Skin: [warm], [dry] Lungs: [chest rise symmetrical], [no accessory muscle use], [ 3 wordconversational dyspnea] Cardiovascular: [ + dorsal pedis pulse bilateral], [capillary refill<2 seconds] [no lower extremity edema]
[2019-08-20] MEDS ORDERED: FUROSEMIDE 10 MG/ML 4 ML VIAL IV STA (15:46)
[2019-08-20 16:27] LABS: Glucose,Whole Blood 98 mg/dL (75-99)
--- NOTE | 2019-08-20 16:44 | P.CNPUL ---
History of Present Illness Consult date: 08/20/19 Reason for consult: pneumonia Chief complaint: Abdominal pain and positive covid 19 pneumonia History of present illness: This is an 83-year-old white male who was transferred actually 4 days ago to our facility from [facility], patient was admitted initially with 1 week history of abdominal pain, and his pain was associated with cough, no diarrhea no nausea no vomiting. Patient also had fevers and chills, and dry cough. Apparently while at [facility], patient tested positive for covid 19, patient was treated with hydroxychloroquine, he also received Rocephin and doxycycline. Patient was transferred to our facility a few days ago, however his chest x-ray is showing significant worsening of his pneumonitis. And his O2 requirement has gone up over the last 4 days from 2 L to 11 L high flow nasal cannula. I evaluated the patient on the medical floor, patient did not seem to be in distress, however he is on a high flow nasal cannula, and his chest x-ray is concerning. Significantly worse over the last few days. Hence I recommended transferring the patient to the intensive care unit. In the meantime I have placed orders to address his pneumonitis. The patient himself is an extremely poor historian, hard of hearing, and could not answer any question I have asked him. Review of Systems ROS unobtainable: due to mental status Past Medical History Past Medical History: Hypertension Additional Past Medical History / Comment(s): Gout, hyperlipidemia History of Any Multi-Drug Resistant Organisms: None Reported Smoking Status: Former smoker - Past Family History Family Family Medical History: No Reported History Medications and Allergies Home Medications Medication Instructions Recorded Confirmed Type Allopurinol [Zyloprim] 100 mg PO DAILY 08/16/19 08/16/19 History Aspirin EC [Ecotrin Low Dose] 81 mg PO DAILY 08/16/19 08/16/19 History Atorvastatin [Lipitor] 40 mg PO HS 08/16/19 08/16/19 History Celecoxib [CeleBREX] 100 mg PO BID PRN 08/16/19 08/16/19 History Irbesartan [Avapro] 150 mg PO DAILY 08/16/19 08/16/19 History Metoprolol Tartrate 25 mg PO BID 08/16/19 08/16/19 History Multivitamins, Thera [Multivitamin 1 tab PO DAILY 08/16/19 08/16/19 History (formulary)] Allergies Allergy/AdvReac Type Severity Reaction Status Date / Time No Known Allergies Allergy Verified 08/16/19 21:31 Physical Exam Vitals: Vital Signs Temp Pulse Resp BP Pulse Ox 08/20/19 15:00 99.4 F 83 18 135/69 88 L 08/20/19 11:47 98.0 F 84 20 123/53 90 L 08/20/19 08:14 94 L 08/20/19 07:00 98.9 F 95 20 151/81 91 L 08/20/19 04:00 91 18 08/20/19 03:31 98.6 F 91 18 152/85 93 L 08/20/19 00:00 18 08/19/19 23:00 99.7 F H 92 18 171/77 92 L 08/19/19 19:25 98.3 F 89 18 170/74 90 L 08/19/19 17:08 18 95 Intake and Output 08/20/19 08/20/19 08/20/19 06:59 14:59 22:59 Other: Voiding Method Urinal # Voids 2 GENERAL: Revealed 83-year-old white male, hard of hearing, in no distress. On high flow nasal cannula. HEENT: PERRLA, EOMI, no icterus, moist mucous membranes. Head is atraumatic, normocephalic. NECK: Supple without lymphadenopathy. CHEST: Symmetrical chest expansion, crackles bilaterally no rhonchi and no wheezes. CARDIOVASCULAR: Normal S1 and S2, no S3 gallop. ABDOMEN: Soft nontender no megaly no rebound no guarding. Positive bowel sounds. MUSCULOSKELETAL: No limitation of range of motion, no deformities NEUROLOGIC: Patient is awake, does not answer any questions, hard of hearing, could not fully perform a adequate neurological examination PSYCH: Blunted mood and affect. Questionable mental status. SKIN: No rashes, no petechiae Results - Laboratory Findings CBC and BMP: 08/20/19 06:41 08/20/19 06:41 PT/INR, D-dimer PT 10.0 sec (9.0-12.0) 08/17/19 01:29 INR 1.0 (<1.2) 08/17/19 01:29 D-Dimer 0.59 mg/L FEU (<0.60) 08/19/19 05:45 Abnormal lab findings: Abnormal Labs 08/17/19 08/17/19 08/17/19 01:29 01:29 03:00 WBC 3.3 L RBC 5.94 H Hgb MCV 71.3 L MCH 23.3 L Plt Count 52 L Lymphocytes # 0.9 L Sodium 126 L Chloride 96 L Carbon Dioxide 21 L Glucose 112 H Calcium 7.8 L Ferritin 1504.8 H AST 72 H ALT Lactate Dehydrogenase 882 H Creatine Kinase 654 H C-Reactive Protein 32.4 H Total Protein Albumin Urine Protein 1+ H Urine Ketones 1+ H Urine Blood Small H Urine RBC 6 H Urine Mucus Rare H 08/17/19 08/18/19 08/18/19 17:39 07:17 07:17 WBC 3.1 L RBC Hgb 12.9 L MCV 72.3 L MCH 23.2 L Plt Count 76 L Lymphocytes # Sodium 129 L 130 L Chloride 96 L Carbon Dioxide 19 L Glucose 123 H Calcium 8.0 L 7.5 L Ferritin AST 110 H ALT 74 H Lactate Dehydrogenase Creatine Kinase C-Reactive Protein Total Protein 6.0 L Albumin 3.1 L Urine Protein Urine Ketones Urine Blood Urine RBC Urine Mucus 08/19/19 08/19/19 08/20/19 05:45 05:45 06:41 WBC 3.1 L RBC Hgb 12.3 L MCV 71.3 L 71.1 L MCH 22.5 L 22.8 L Plt Count 105 L 125 L Lymphocytes # 0.8 L Sodium 130 L Chloride Carbon Dioxide 20 L Glucose Calcium 7.3 L Ferritin 2490.4 H AST 124 H ALT 91 H Lactate Dehydrogenase 1378 H Creatine Kinase 740 H C-Reactive Protein 46.8 H Total Protein 5.7 L Albumin 2.9 L Urine Protein Urine Ketones Urine Blood Urine RBC Urine Mucus 08/20/19 06:41 WBC RBC Hgb MCV MCH Plt Count Lymphocytes # Sodium 131 L Chloride Carbon Dioxide 18 L Glucose 103 H Calcium 7.5 L Ferritin AST 176 H ALT 116 H Lactate Dehydrogenase Creatine Kinase C-Reactive Protein Total Protein 6.0 L Albumin 3.0 L Urine Protein Urine Ketones Urine Blood Urine RBC Urine Mucus - Diagnostic Findings Chest x-ray: image reviewed (As noted in HPI.) Assessment and Plan Assessment: Impression: Acute hypoxic respiratory failure secondary to severe pneumonitis secondary to covid 19 Benign essential hypertension elevated liver enzymes secondary to covid 19 infection Elevated inflammatory markers for covid 19 pneumonitis. Elevated LDH of 1378 elevated CPK elevated C-reactive protein and normal d-dimer. Recommendation: Considering the progression of his pneumonitis based on chest x-ray findings, Considering his worsening hypoxia, We'll arrange for the patient be transferred to the ICU as he may eventually require intubation and mechanical ventilation. In the meantime patient will be placed back on hydroxychloroquine, ceftriaxone, methylprednisolone, zinc, and we'll continue to follow. Prognosis obviously seems to be extremely poor and guarded. Time with Patient: Greater than 30
[2019-08-20] MEDS ORDERED: NALOXONE 0.4 MG/ML 1 ML VIAL IV PRN (16:52)
[2019-08-20] MEDS: ATORVASTATIN 40 MG TAB PO SCH (20:23)
[2019-08-20] MEDS: methylPREDNISolone SOD SUCCI 40 MG/ML 1 ML VIAL IV SCH (20:24)
[2019-08-21] MEDS: HEPARIN SODIUM,PORCINE 5,000 UNIT/ML 1 ML VIAL SQ SCH ×4 (00:30→23:17)
[2019-08-21 04:35] LABS: Basophils % (A) 0 %; Eosinophils % (A) 0 %; HCT 40.9 % (39.0-53.0); HGB 13.2 gm/dL (13.0-17.5); Lymphocytes # (A) 0.6 k/uL (1.0-4.8); Lymphocytes % (A) 10 %; MCH 22.8 pg (25.0-35.0); MCHC 32.2 g/dL (31.0-37.0); MCV 70.7 fL (80.0-100.0); Mean Platelet Volume 8.8; Microcytosis Moderate; Monocytes # (A) 0.1 k/uL (0-1.0); Monocytes % (A) 2 %; Neutrophils % (A) 86 %; Platelet Count 139 k/uL (150-450); RBC 5.79 m/uL (4.30-5.90); RDW 14.4 % (11.5-15.5); WBC 5.8 k/uL (3.8-10.6)
[2019-08-21 04:50] LABS: ALT 184 U/L (4-49); AST 264 U/L (17-59); African American GFR (CKD) >90 (>60 ml/min/1.73 sqM); Albumin 3.2 g/dL (3.5-5.0); Alkaline Phosphatase 85 U/L (38-126); Anion Gap 11 mmol/L; Blood Urea Nitrogen 18 mg/dL (9-20); Calcium 7.7 mg/dL (8.4-10.2); Carbon Dioxide 21 mmol/L (22-30); Chloride 101 mmol/L (98-107); Creatine Kinase 727 U/L (55-170); Glucose 140 mg/dL (74-99); Non-African American GFR(CKD) 82 (>60 ml/min/1.73 sqM); Potassium 4.2 mmol/L (3.5-5.1); Sodium 133 mmol/L (137-145); Total Bilirubin 1.1 mg/dL (0.2-1.3); Total Protein 6.2 g/dL (6.3-8.2)
[2019-08-21 05:01] LABS: LDH 2879 U/L (313-618)
--- NOTE | 2019-08-21 07:19 | XR ---
EXAMINATION TYPE: XR chest 1V portable DATE OF EXAM: 08/21/2019 HISTORY: Shortness of breath. COMPARISON: 08/20/2019 TECHNIQUE: Single view of the chest is submitted. FINDINGS: Demonstrated are scattered senescent parenchymal change. Diffuse bilateral interstitial and alveolar infiltrates noted. No significant interval change appreci ated. The heart is stable. Hilar and mediastinal structures are within normal limits. Degenerative changes are seen of the dorsal spine. IMPRESSION: 1. Diffuse bilateral interstitial and alveolar infiltrates noted. No significant interval change italo reciated.
[2019-08-21] MEDS: ASPIRIN 81 MG PO SCH (08:52)
[2019-08-21] MEDS: ALLOPURINOL 100 MG TAB PO SCH (08:52)
[2019-08-21] MEDS: HYDROXYCHLOROQUINE SULFATE 200 MG TAB PO SCH (08:52)
[2019-08-21] MEDS: methylPREDNISolone SOD SUCCI 40 MG/ML 1 ML VIAL IV SCH ×2 (08:52→20:55)
[2019-08-21] MEDS: LOSARTAN 50 MG TAB PO SCH (08:52)
[2019-08-21] MEDS: METOPROLOL TARTRATE 25 MG TAB PO SCH ×2 (08:53→20:55)
[2019-08-21] MEDS: ZINC SULFATE 220 MG CAP PO SCH (08:53)
[2019-08-21] MEDS: SODIUM CHLORIDE 0.9% 1,000 ML IV SCH (11:37)
[2019-08-21 12:00] LABS: Ferritin 4468.2 ng/mL (22.0-322.0)
--- NOTE | 2019-08-21 13:46 | P.PN ---
Subjective Progress Note Date: 08/21/19 Principal diagnosis: Acute covid 19 pneumonitis. This is an 83-year-old white male who was transferred actually 4 days ago to our facility from [facility], patient was admitted initially with 1 week history of abdominal pain, and his pain was associated with cough, no diarrhea no nausea no vomiting. Patient also had fevers and chills, and dry cough. Apparently while at [facility], patient tested positive for covid 19, patient was treated with hydroxychloroquine, he also received Rocephin and doxycycline. Patient was transferred to our facility a few days ago, however his chest x-ray is showing significant worsening of his pneumonitis. And his O2 requirement has gone up over the last 4 days from 2 L to 11 L high flow nasal cannula. I evaluated the patient on the medical floor, patient did not seem to be in distress, however he is on a high flow nasal cannula, and his chest x-ray is concerning. Significantly worse over the last few days. Hence I recommended transferring the patient to the intensive care unit. In the meantime I have placed orders to address his pneumonitis. The patient himself is an extremely poor historian, hard of hearing, and could not answer any question I have asked him. Patient was reevaluated today on 08/21/19, patient is a positive covid 19 pneumonitis patient, with increased inflammatory markers, remains on high flow nasal cannula at 15 L/m, he seems to be in no form of distress, O2 saturation is marginal in the low 90s presently 92%. Patient has 0.9 normal saline at KVO, chest x-ray is showing slight improvement. Remains in normal sinus rhythm at 90 beats per minutes. On physical examination he has crackles at the bases. WBC count is 5.8 hemoglobin is 13.2 d-dimer is 0.89 slightly elevated. Ferritin is over 4400, continues to rise. LDH is rising now 2879 and C-reactive protein is rising at 166.0. Surprisingly, the patient does not seem to be in any distress, and he is relatively asymptomatic except for occasional cough. Objective - Vital Signs Vital signs: Vital Signs Temp 98.1 F 08/21/19 12:00 Pulse 77 08/21/19 13:00 Resp 24 08/21/19 13:00 BP 129/65 08/21/19 13:00 Pulse Ox 94 L 08/21/19 13:00 Intake & Output 08/20/19 08/21/19 08/21/19 18:59 06:59 18:59 Intake Total 140 240 440 Output Total 1500 1385 425 Balance -1360 -1145 15 Weight 82.2 kg Intake: IV 40 240 140 normal saline 40 240 140 Intake, IV Titration 100 50 Amount cefTRIAXone 1 gm In 100 50 Sodium Chloride 0.9% 50 ml @ 100 mls/hr IVPB Q24HR [facility] Rx#:[id number] Oral 250 Output: Urine 1500 1385 425 Other: Voiding Method Indwelling Catheter Indwelling Catheter Indwelling Catheter # Voids 2 # Bowel Movements 1 - Exam GENERAL: Revealed 83-year-old white male, remains on high flow nasal cannula with marginal O2 saturation. HEENT: PERRLA, EOMI, no icterus, moist mucous membranes. Head is atraumatic, normocephalic. NECK: Supple without lymphadenopathy. CHEST: Symmetrical chest expansion, crackles bilaterally no rhonchi and no wheezes. CARDIOVASCULAR: Normal S1 and S2, no S3 gallop. ABDOMEN: Soft nontender no megaly no rebound no guarding. Positive bowel sounds. MUSCULOSKELETAL: No limitation of range of motion, no deformities NEUROLOGIC: Patient is awake, does not answer any questions, hard of hearing, could not fully perform a adequate neurological examination PSYCH: Blunted mood and affect. SKIN: No rashes, no petechiae - Labs CBC & Chem 7: 08/21/19 04:07 08/21/19 04:07 Labs: Abnormal Lab Results - Last 24 Hours (Table) 08/21/19 08/21/19 08/21/19 Range/Units 04:07 04:07 04:07 MCV 70.7 L (80.0-100.0) fL MCH 22.8 L (25.0-35.0) pg Plt Count 139 L (150-450) k/uL Lymphocytes # 0.6 L (1.0-4.8) k/uL D-Dimer 0.89 H (<0.60) mg/L FEU Sodium 133 L (137-145) mmol/L Carbon Dioxide 21 L (22-30) mmol/L Glucose 140 H (74-99) mg/dL Calcium 7.7 L (8.4-10.2) mg/dL Ferritin 4468.2 H (22.0-322.0) ng/mL AST 264 H (17-59) U/L ALT 184 H (4-49) U/L Lactate Dehydrogenase 2879 H (313-618) U/L Creatine Kinase 727 H (55-170) U/L C-Reactive Protein 166.0 H (<10.0) mg/L Total Protein 6.2 L (6.3-8.2) g/dL Albumin 3.2 L (3.5-5.0) g/dL Microbiology - Last 24 Hours (Table) 08/17/19 01:29 Blood Culture - Preliminary Blood No Growth after 96 hours Assessment and Plan Assessment: Impression: Acute hypoxic respiratory failure secondary to severe pneumonitis secondary to covid 19 Benign essential hypertension elevated liver enzymes secondary to covid 19 infection Elevated inflammatory markers for covid 19 pneumonitis. Recommendation: Considering the progression of his pneumonitis based on chest x-ray findings, Considering his worsening hypoxia, We'll continue to monitor the patient in the ICU. Continue hydroxychloroquine, ceftriaxone, methylprednisolone, zinc, Prognosis remains guarded. Time with Patient: Less than 30
--- NOTE | 2019-08-21 16:31 | P.PN ---
Subjective Progress Note Date: 08/21/19 Principal diagnosis: COVID 19 Patient was seen and examined. Yesterday, increased work of breathing along with changes in oxygenation status. He went from 5 L to 15 L high flow nasal cannula. Pulmonology was consulted and recommended ICU admission. He continues to remain on 15 L high flow nasal cannula. Patient has no complaints. He reports that his breathing has improved since yesterday. Attempted to call his son today but went to voicemail. Objective - Vital Signs Vital signs: Vital Signs Temp 98.1 F 08/21/19 12:00 Pulse 77 08/21/19 13:00 Resp 24 08/21/19 13:00 BP 129/65 08/21/19 13:00 Pulse Ox 94 L 08/21/19 16:08 Intake & Output 08/20/19 08/21/19 08/21/19 18:59 06:59 18:59 Intake Total 140 240 440 Output Total 1500 1385 425 Balance -1360 -1145 15 Weight 82.2 kg Intake: IV 40 240 140 normal saline 40 240 140 Intake, IV Titration 100 50 Amount cefTRIAXone 1 gm In 100 50 Sodium Chloride 0.9% 50 ml @ 100 mls/hr IVPB Q24HR [facility] Rx#:[id number] Oral 250 Output: Urine 1500 1385 425 Other: Voiding Method Indwelling Catheter Indwelling Catheter Indwelling Catheter # Voids 2 # Bowel Movements 1 - Exam General: [non toxic], [dyspnea, mild distress], [appears at stated age] Derm: [warm], [dry] Head: [atraumatic], [normocephalic], [symmetric] Eyes: [EOMI], [no lid lag], [anicteric sclera] Mouth: [no lip lesion], [mucus membranes moist] Cardiovascular: [S1S2 reg], [no murmur], [positive posterior tibial pulse bilateral], Lungs: [Crackles bilateral], [no rhonchi, no rales] , [no accessory muscle use] Abdominal: [soft], [ nontender to palpation], [no guarding], [no appreciable organomegaly] Ext: [no gross muscle atrophy], [no edema], [no contractures] Neuro: [Decreased ability to hear on both sides], [no focal neuro deficits] Psych: [Alert], [oriented], [appropriate affect] - Labs CBC & Chem 7: 08/21/19 04:07 08/21/19 04:07 Labs: Abnormal Lab Results - Last 24 Hours (Table) 08/21/19 08/21/19 08/21/19 Range/Units 04:07 04:07 04:07 MCV 70.7 L (80.0-100.0) fL MCH 22.8 L (25.0-35.0) pg Plt Count 139 L (150-450) k/uL Lymphocytes # 0.6 L (1.0-4.8) k/uL D-Dimer 0.89 H (<0.60) mg/L FEU Sodium 133 L (137-145) mmol/L Carbon Dioxide 21 L (22-30) mmol/L Glucose 140 H (74-99) mg/dL Calcium 7.7 L (8.4-10.2) mg/dL Ferritin 4468.2 H (22.0-322.0) ng/mL AST 264 H (17-59) U/L ALT 184 H (4-49) U/L Lactate Dehydrogenase 2879 H (313-618) U/L Creatine Kinase 727 H (55-170) U/L C-Reactive Protein 166.0 H (<10.0) mg/L Total Protein 6.2 L (6.3-8.2) g/dL Albumin 3.2 L (3.5-5.0) g/dL Microbiology - Last 24 Hours (Table) 08/17/19 01:29 Blood Culture - Preliminary Blood No Growth after 96 hours Assessment and Plan Assessment: Bilateral pneumonia due to COVID-19 infection, acute hypoxic respiratory failure -Completed course of hydroxychloroquine -Limit fluids -Supportive care -stop doxy, continues to be on Rocephin will discuss with pulmonology regarding discontinuing this medication -Limit IV fluids -Follow d-dimer, ferritin, LDH, CPK, and CRP Transaminitis due to above - continue to monitor Hyponatremia due to hypovolemia -Improving with IVF -Encourage oral fluid intake - IV fluids gentle with infection -Repeat BMP in a.m. Thrombocytopenia, suspect reactive -Follow CBC Hypertension -Continue with metoprolol and ARB -Follow blood pressures Dyslipidemia -Continue statin therapy Attempted to update son through this phone number [phone], went to voicemail, will reattempt tomorrow. Patient is low threshold for intubation. Currently on 15 L nasal cannula. Worsening CRP, lactate dehydrogenase, liver enzymes, ferritin and d-dimer. Prognosis is extremely guarded at this time.
[2019-08-21] MEDS: ATORVASTATIN 40 MG TAB PO SCH (20:55)
[2019-08-21] MEDS ORDERED: FUROSEMIDE 10 MG/ML 4 ML VIAL IV STA (21:46)
[2019-08-22] MEDS: SODIUM CHLORIDE 0.9% 1,000 ML IV SCH (05:26)
[2019-08-22 05:33] LABS: Basophils % (A) 0 %; Eosinophils % (A) 0 %; HCT 40.4 % (39.0-53.0); HGB 12.8 gm/dL (13.0-17.5); Lymphocytes # (A) 0.9 k/uL (1.0-4.8); Lymphocytes % (A) 9 %; MCH 22.6 pg (25.0-35.0); MCHC 31.6 g/dL (31.0-37.0); MCV 71.6 fL (80.0-100.0); Mean Platelet Volume 7.7; Microcytosis Moderate; Monocytes # (A) 0.3 k/uL (0-1.0); Monocytes % (A) 3 %; Neutrophils # (A) 8.4 k/uL (1.3-7.7); Neutrophils % (A) 85 %; Platelet Count 195 k/uL (150-450); RBC 5.64 m/uL (4.30-5.90); RDW 14.6 % (11.5-15.5); WBC 9.9 k/uL (3.8-10.6)
[2019-08-22 05:44] LABS: African American GFR (CKD) >90 (>60 ml/min/1.73 sqM); Anion Gap 8 mmol/L; Blood Urea Nitrogen 30 mg/dL (9-20); Calcium 7.8 mg/dL (8.4-10.2); Carbon Dioxide 22 mmol/L (22-30); Chloride 103 mmol/L (98-107); Glucose 177 mg/dL (74-99); Non-African American GFR(CKD) 80 (>60 ml/min/1.73 sqM); Sodium 133 mmol/L (137-145)
[2019-08-22 05:58] LABS: Creatine Kinase 319 U/L (55-170)
[2019-08-22 07:52] LABS: ALT 266 U/L (4-49); AST 283 U/L (17-59); African American GFR (CKD) >90 (>60 ml/min/1.73 sqM); Albumin 3.1 g/dL (3.5-5.0); Alkaline Phosphatase 98 U/L (38-126); Anion Gap 9 mmol/L; Blood Urea Nitrogen 31 mg/dL (9-20); Calcium 7.8 mg/dL (8.4-10.2); Carbon Dioxide 22 mmol/L (22-30); Chloride 104 mmol/L (98-107); Glucose 173 mg/dL (74-99); Non-African American GFR(CKD) 79 (>60 ml/min/1.73 sqM); Potassium 3.8 mmol/L (3.5-5.1); Sodium 135 mmol/L (137-145); Total Bilirubin 0.8 mg/dL (0.2-1.3); Total Protein 6.3 g/dL (6.3-8.2)
[2019-08-22 08:05] LABS: LDH 2397 U/L (313-618)
--- NOTE | 2019-08-22 08:09 | XR ---
EXAMINATION TYPE: XR chest 1V portable DATE OF EXAM: 08/22/2019 COMPARISON: 09/02/2019 INDICATION: Covid 19 TECHNIQUE: Single frontal view of the chest is obtained. FINDINGS: The heart size is upper limits of normal. The pulmonary vasculature is prominent. Diffuse increased lung markings are present bilaterally. IMPRESSION: 1. Diffuse increased lung markings bilaterally. This is stable to minimally improved.
[2019-08-22 08:18] LABS: Glucose,Whole Blood 218 mg/dL (75-99)
[2019-08-22] MEDS: INSULIN ASPART (NovoLOG) 100 UNIT/ML VIAL SQ SCH ×4 (08:30→21:28)
[2019-08-22] MEDS: HEPARIN SODIUM,PORCINE 5,000 UNIT/ML 1 ML VIAL SQ SCH ×2 (08:48→16:19)
[2019-08-22] MEDS: ALLOPURINOL 100 MG TAB PO SCH (08:50)
[2019-08-22] MEDS: ASPIRIN 81 MG PO SCH (08:50)
[2019-08-22] MEDS: LOSARTAN 50 MG TAB PO SCH (08:51)
[2019-08-22] MEDS: methylPREDNISolone SOD SUCCI 40 MG/ML 1 ML VIAL IV SCH ×2 (08:51→20:39)
[2019-08-22] MEDS: ZINC SULFATE 220 MG CAP PO SCH (08:51)
[2019-08-22] MEDS: METOPROLOL TARTRATE 25 MG TAB PO SCH ×2 (08:52→20:40)
[2019-08-22] MEDS ORDERED: FUROSEMIDE 10 MG/ML 4 ML VIAL IV STA (09:04)
[2019-08-22 11:37] LABS: Glucose,Whole Blood 154 mg/dL (75-99)
[2019-08-22 12:09] LABS: Ferritin 5420.2 ng/mL (22.0-322.0)
--- NOTE | 2019-08-22 13:43 | P.PN ---
Subjective Progress Note Date: 08/22/19 Principal diagnosis: Acute covid 19 pneumonitis. This is an 83-year-old white male who was transferred actually 4 days ago to our facility from [facility], patient was admitted initially with 1 week history of abdominal pain, and his pain was associated with cough, no diarrhea no nausea no vomiting. Patient also had fevers and chills, and dry cough. Apparently while at [facility], patient tested positive for covid 19, patient was treated with hydroxychloroquine, he also received Rocephin and doxycycline. Patient was transferred to our facility a few days ago, however his chest x-ray is showing significant worsening of his pneumonitis. And his O2 requirement has gone up over the last 4 days from 2 L to 11 L high flow nasal cannula. I evaluated the patient on the medical floor, patient did not seem to be in distress, however he is on a high flow nasal cannula, and his chest x-ray is concerning. Significantly worse over the last few days. Hence I recommended transferring the patient to the intensive care unit. In the meantime I have placed orders to address his pneumonitis. The patient himself is an extremely poor historian, hard of hearing, and could not answer any question I have asked him. Patient was reevaluated today on 08/21/19, patient is a positive covid 19 pneumonitis patient, with increased inflammatory markers, remains on high flow nasal cannula at 15 L/m, he seems to be in no form of distress, O2 saturation is marginal in the low 90s presently 92%. Patient has 0.9 normal saline at KVO, chest x-ray is showing slight improvement. Remains in normal sinus rhythm at 90 beats per minutes. On physical examination he has crackles at the bases. WBC count is 5.8 hemoglobin is 13.2 d-dimer is 0.89 slightly elevated. Ferritin is over 4400, continues to rise. LDH is rising now 2879 and C-reactive protein is rising at 166.0. Surprisingly, the patient does not seem to be in any distress, and he is relatively asymptomatic except for occasional cough. Reevaluated today on 08/22/19, patient remains in the ICU, he is on a high flow nasal cannula, and O2 saturation is in the low 90s, ranging between 89-93%. However clinically the patient is basically asymptomatic, he is afebrile, he is in normal sinus rhythm, chest x-ray shows diffuse interstitial infiltrates bilaterally. Lasix was given again today 40 mg IV push. And he was given Lasix yesterday. Again the patient is basically asymptomatic in spite of of his chest x-ray appearance and in spite of marginal O2 saturation. Electrolytes are normal, renal profile is normal liver enzymes are a bit elevated with AST of 283 ALT of 266 LDH is 2397 slightly better compared to yesterday. C-reactive protein is 84 improved compared to yesterday. CBC is relatively normal Objective - Vital Signs Vital signs: Vital Signs Temp 97.6 F 08/22/19 12:00 Pulse 67 08/22/19 12:00 Resp 91 H 08/22/19 13:00 BP 112/57 08/22/19 13:00 Pulse Ox 92 L 08/22/19 13:00 Intake & Output 08/21/19 08/22/19 08/22/19 18:59 06:59 18:59 Intake Total 540 240 140 Output Total 575 1060 620 Balance -35 -820 -480 Weight 81.2 kg Intake: IV 240 240 140 normal saline 240 240 140 Intake, IV Titration 50 Amount cefTRIAXone 1 gm In 50 Sodium Chloride 0.9% 50 ml @ 100 mls/hr IVPB Q24HR [facility] Rx#:[id number] Oral 250 Output: Urine 575 1060 620 Other: Voiding Method Indwelling Catheter Indwelling Catheter Indwelling Catheter # Bowel Movements 1 1 - Exam GENERAL: Revealed 83-year-old white male, remains on high flow nasal cannula with O2 saturation is 91%, however patient is in no distress HEENT: PERRLA, EOMI, no icterus, moist mucous membranes. Head is atraumatic, normocephalic. NECK: Supple without lymphadenopathy. CHEST: Symmetrical chest expansion, diffuse crackles bilaterally. No wheezes. CARDIOVASCULAR: Normal S1 and S2, no S3 gallop. ABDOMEN: Soft nontender no megaly no rebound no guarding. Positive bowel sounds. MUSCULOSKELETAL: No limitation of range of motion, no deformities NEUROLOGIC: Patient is awake, does not answer any questions, hard of hearing, could not fully perform a adequate neurological examination PSYCH: Blunted mood and affect. SKIN: No rashes, no petechiae - Labs CBC & Chem 7: 08/22/19 04:30 08/22/19 07:21 Labs: Abnormal Lab Results - Last 24 Hours (Table) 08/22/19 08/22/19 08/22/19 Range/Units 04:30 04:30 04:30 Hgb 12.8 L (13.0-17.5) gm/dL MCV 71.6 L (80.0-100.0) fL MCH 22.6 L (25.0-35.0) pg Neutrophils # 8.4 H (1.3-7.7) k/uL Lymphocytes # 0.9 L (1.0-4.8) k/uL D-Dimer 0.96 H (<0.60) mg/L FEU Sodium 133 L (137-145) mmol/L BUN 30 H (9-20) mg/dL Glucose 177 H (74-99) mg/dL POC Glucose (mg/dL) (75-99) mg/dL Calcium 7.8 L (8.4-10.2) mg/dL Ferritin 5420.2 H (22.0-322.0) ng/mL AST (17-59) U/L ALT (4-49) U/L Lactate Dehydrogenase (313-618) U/L Creatine Kinase 319 H (55-170) U/L C-Reactive Protein 84.0 H (<10.0) mg/L Albumin (3.5-5.0) g/dL 08/22/19 08/22/19 08/22/19 Range/Units 07:21 08:16 11:35 Hgb (13.0-17.5) gm/dL MCV (80.0-100.0) fL MCH (25.0-35.0) pg Neutrophils # (1.3-7.7) k/uL Lymphocytes # (1.0-4.8) k/uL D-Dimer (<0.60) mg/L FEU Sodium 135 L (137-145) mmol/L BUN 31 H (9-20) mg/dL Glucose 173 H (74-99) mg/dL POC Glucose (mg/dL) 218 H 154 H (75-99) mg/dL Calcium 7.8 L (8.4-10.2) mg/dL Ferritin (22.0-322.0) ng/mL AST 283 H (17-59) U/L ALT 266 H (4-49) U/L Lactate Dehydrogenase 2397 H (313-618) U/L Creatine Kinase (55-170) U/L C-Reactive Protein (<10.0) mg/L Albumin 3.1 L (3.5-5.0) g/dL Microbiology - Last 24 Hours (Table) 08/17/19 01:29 Blood Culture - Preliminary Blood No Growth after 120 hours Assessment and Plan Assessment: Impression: Acute hypoxic respiratory failure secondary to severe pneumonitis secondary to covid 19 Benign essential hypertension elevated liver enzymes secondary to covid 19 infection Elevated inflammatory markers for covid 19 pneumonitis. Recommendation: Continue patient on high flow nasal cannula. Continue to monitor closely in the ICU, will recommend intubation if his clinical status deteriorates. Continue hydroxychloroquine, ceftriaxone, methylprednisolone, zinc, Prognosis remains guarded. We'll continue to follow. Time with Patient: Less than 30
--- NOTE | 2019-08-22 16:45 | P.PN ---
Subjective Progress Note Date: 08/22/19 Principal diagnosis: COVID 19 Patient was seen and examined. He continues to remain on 15 L high flow nasal cannula. Patient has no complaints. Watching TV. No reported events by nursing. Objective - Vital Signs Vital signs: Vital Signs Temp 97.1 F L 08/22/19 16:00 Pulse 70 08/22/19 15:00 Resp 20 08/22/19 16:00 BP 120/55 08/22/19 16:00 Pulse Ox 94 L 08/22/19 16:00 Intake & Output 08/21/19 08/22/19 08/22/19 18:59 06:59 18:59 Intake Total 540 240 200 Output Total 575 1060 770 Balance -35 -820 -570 Weight 81.2 kg Intake: IV 240 240 200 normal saline 240 240 200 Intake, IV Titration 50 Amount cefTRIAXone 1 gm In 50 Sodium Chloride 0.9% 50 ml @ 100 mls/hr IVPB Q24HR [facility] Rx#:[id number] Oral 250 Output: Urine 575 1060 770 Other: Voiding Method Indwelling Catheter Indwelling Catheter Indwelling Catheter # Bowel Movements 1 1 - Exam General: [non toxic], [dyspnea, mild distress], [appears at stated age] Derm: [warm], [dry] Head: [atraumatic], [normocephalic], [symmetric] Eyes: [EOMI], [no lid lag], [anicteric sclera] Mouth: [no lip lesion], [mucus membranes moist] Cardiovascular: [S1S2 reg], [no murmur], [positive posterior tibial pulse bilateral], Lungs: [Crackles bilateral], [no rhonchi, no rales] , [no accessory muscle use] Abdominal: [soft], [ nontender to palpation], [no guarding], [no appreciable organomegaly] Ext: [no gross muscle atrophy], [no edema], [no contractures] Neuro: [Decreased ability to hear on both sides], [no focal neuro deficits] Psych: [Alert], [oriented], [appropriate affect] - Labs CBC & Chem 7: 08/22/19 04:30 08/22/19 07:21 Labs: Abnormal Lab Results - Last 24 Hours (Table) 08/22/19 08/22/19 08/22/19 Range/Units 04:30 04:30 04:30 Hgb 12.8 L (13.0-17.5) gm/dL MCV 71.6 L (80.0-100.0) fL MCH 22.6 L (25.0-35.0) pg Neutrophils # 8.4 H (1.3-7.7) k/uL Lymphocytes # 0.9 L (1.0-4.8) k/uL D-Dimer 0.96 H (<0.60) mg/L FEU Sodium 133 L (137-145) mmol/L BUN 30 H (9-20) mg/dL Glucose 177 H (74-99) mg/dL POC Glucose (mg/dL) (75-99) mg/dL Calcium 7.8 L (8.4-10.2) mg/dL Ferritin 5420.2 H (22.0-322.0) ng/mL AST (17-59) U/L ALT (4-49) U/L Lactate Dehydrogenase (313-618) U/L Creatine Kinase 319 H (55-170) U/L C-Reactive Protein 84.0 H (<10.0) mg/L Albumin (3.5-5.0) g/dL 08/22/19 08/22/19 08/22/19 Range/Units 07:21 08:16 11:35 Hgb (13.0-17.5) gm/dL MCV (80.0-100.0) fL MCH (25.0-35.0) pg Neutrophils # (1.3-7.7) k/uL Lymphocytes # (1.0-4.8) k/uL D-Dimer (<0.60) mg/L FEU Sodium 135 L (137-145) mmol/L BUN 31 H (9-20) mg/dL Glucose 173 H (74-99) mg/dL POC Glucose (mg/dL) 218 H 154 H (75-99) mg/dL Calcium 7.8 L (8.4-10.2) mg/dL Ferritin (22.0-322.0) ng/mL AST 283 H (17-59) U/L ALT 266 H (4-49) U/L Lactate Dehydrogenase 2397 H (313-618) U/L Creatine Kinase (55-170) U/L C-Reactive Protein (<10.0) mg/L Albumin 3.1 L (3.5-5.0) g/dL Microbiology - Last 24 Hours (Table) 08/17/19 01:29 Blood Culture - Preliminary Blood No Growth after 120 hours Assessment and Plan Assessment: Bilateral pneumonia due to COVID-19 infection, acute hypoxic respiratory failure -Completed course of hydroxychloroquine -Limit fluids -Supportive care -stop doxy, continues to be on Rocephin will discuss with pulmonology regarding discontinuing this medication -Limit IV fluids -1 dose of Lasix IV given today -Follow d-dimer, ferritin, LDH, CPK, and CRP (liver enzymes are slightly worsening, LDH slight improvement, CPK improved, CRP improved) Transaminitis due to above - continue to monitor Hyponatremia due to hypovolemia -Improving with IVF -Encourage oral fluid intake - IV fluids gentle with infection -Repeat BMP in a.m. Thrombocytopenia, suspect reactive -Follow CBC Hypertension -Continue with metoprolol and ARB -Follow blood pressures Dyslipidemia -Continue statin therapy Attempted to update son through this phone number [phone], went to [facility] x 2, will reattempt tomorrow. Patient is low threshold for intubation. Currently on 15 L nasal cannula. Prognosis is extremely guarded at this time.
[2019-08-22 16:48] LABS: Glucose,Whole Blood 185 mg/dL (75-99)
[2019-08-22] MEDS: ATORVASTATIN 40 MG TAB PO SCH (20:39)
[2019-08-22 21:28] LABS: Glucose,Whole Blood 145 mg/dL (75-99)
[2019-08-23] MEDS: HEPARIN SODIUM,PORCINE 5,000 UNIT/ML 1 ML VIAL SQ SCH ×3 (00:29→17:28)
[2019-08-23 04:33] LABS: Basophils # (A) 0.1 k/uL (0-0.2); Basophils % (A) 1 %; Eosinophils % (A) 0 %; HCT 40.9 % (39.0-53.0); HGB 12.8 gm/dL (13.0-17.5); Lymphocytes # (A) 0.7 k/uL (1.0-4.8); Lymphocytes % (A) 6 %; MCH 22.5 pg (25.0-35.0); MCHC 31.3 g/dL (31.0-37.0); Mean Platelet Volume 7.2; Microcytosis Moderate; Monocytes # (A) 0.6 k/uL (0-1.0); Monocytes % (A) 5 %; Neutrophils # (A) 9.6 k/uL (1.3-7.7); Neutrophils % (A) 85 %; Platelet Count 231 k/uL (150-450); RBC 5.67 m/uL (4.30-5.90); RDW 14.7 % (11.5-15.5); WBC 11.3 k/uL (3.8-10.6)
[2019-08-23 04:46] LABS: ALT 305 U/L (4-49); AST 263 U/L (17-59); African American GFR (CKD) >90 (>60 ml/min/1.73 sqM); Alkaline Phosphatase 104 U/L (38-126); Anion Gap 6 mmol/L; Blood Urea Nitrogen 32 mg/dL (9-20); C Reactive Protein 46.1 mg/L (<10.0); Carbon Dioxide 27 mmol/L (22-30); Chloride 103 mmol/L (98-107); Creatine Kinase 222 U/L (55-170); Glucose 161 mg/dL (74-99); Non-African American GFR(CKD) 81 (>60 ml/min/1.73 sqM); Potassium 3.8 mmol/L (3.5-5.1); Sodium 136 mmol/L (137-145); Total Bilirubin 0.7 mg/dL (0.2-1.3); Total Protein 6.1 g/dL (6.3-8.2)
[2019-08-23 04:50] LABS: LDH 2108 U/L (313-618)
[2019-08-23] MEDS: SODIUM CHLORIDE 0.9% 1,000 ML IV SCH (05:42)
[2019-08-23] MEDS ORDERED: Potassium Replacement Protocol 1 EACH MISC MISCELLANE PRN (06:41)
[2019-08-23 06:52] LABS: Glucose,Whole Blood 166 mg/dL (75-99)
[2019-08-23] MEDS: INSULIN ASPART (NovoLOG) 100 UNIT/ML VIAL SQ SCH ×4 (06:59→20:50)
[2019-08-23] MEDS ORDERED: POTASSIUM CHLORIDE ER 20 MEQ TAB.ER PO ONE (07:00)
[2019-08-23] MEDS: ZINC SULFATE 220 MG CAP PO SCH (08:43)
[2019-08-23] MEDS: METOPROLOL TARTRATE 25 MG TAB PO SCH ×2 (08:43→20:49)
[2019-08-23] MEDS: ALLOPURINOL 100 MG TAB PO SCH (08:44)
[2019-08-23] MEDS: methylPREDNISolone SOD SUCCI 40 MG/ML 1 ML VIAL IV SCH ×2 (08:44→20:49)
[2019-08-23] MEDS: LOSARTAN 50 MG TAB PO SCH (08:44)
[2019-08-23] MEDS: ASPIRIN 81 MG PO SCH (08:44)
--- NOTE | 2019-08-23 09:39 | XR ---
EXAMINATION TYPE: XR chest 1V portable DATE OF EXAM: 08/23/2019 CLINICAL HISTORY: Difficulty breathing and pneumonia progress study. TECHNIQUE: Single AP portable upright view of the chest is obtained. COMPARISON: Chest x-ray from one day earlier and older studies back through June 18, 2019. FINDINGS: Persistent diffuse alveolar and reticulonodular opacities bilaterally with only relative s paring of the lung apices. Continued progression from older studies. More focal consolidation in the lung bases. No mediastinal shift. No pleural effusion or pneumothorax seen bilaterally. Cardiac silho uette size stable and upper limits of normal. Overlying EKG leads. Atherosclerotic aorta. Osseous str uctures are intact. IMPRESSION: Continued increasing diffuse bilateral infiltrates from admission consistent with COVID p neumonia progression.
[2019-08-23 10:55] LABS: Glucose,Whole Blood 156 mg/dL (75-99)
[2019-08-23 11:05] VITALS: BMI 26.7
[2019-08-23 11:56] LABS: Ferritin 5126.7 ng/mL (22.0-322.0)
--- NOTE | 2019-08-23 13:24 | P.PN ---
Subjective Progress Note Date: 08/23/19 Principal diagnosis: Acute covid 19 pneumonitis. This is an 83-year-old white male who was transferred actually 4 days ago to our facility from [facility], patient was admitted initially with 1 week history of abdominal pain, and his pain was associated with cough, no diarrhea no nausea no vomiting. Patient also had fevers and chills, and dry cough. Apparently while at [facility], patient tested positive for covid 19, patient was treated with hydroxychloroquine, he also received Rocephin and doxycycline. Patient was transferred to our facility a few days ago, however his chest x-ray is showing significant worsening of his pneumonitis. And his O2 requirement has gone up over the last 4 days from 2 L to 11 L high flow nasal cannula. I evaluated the patient on the medical floor, patient did not seem to be in distress, however he is on a high flow nasal cannula, and his chest x-ray is concerning. Significantly worse over the last few days. Hence I recommended transferring the patient to the intensive care unit. In the meantime I have placed orders to address his pneumonitis. The patient himself is an extremely poor historian, hard of hearing, and could not answer any question I have asked him. Patient was reevaluated today on 08/21/19, patient is a positive covid 19 pneumonitis patient, with increased inflammatory markers, remains on high flow nasal cannula at 15 L/m, he seems to be in no form of distress, O2 saturation is marginal in the low 90s presently 92%. Patient has 0.9 normal saline at KVO, chest x-ray is showing slight improvement. Remains in normal sinus rhythm at 90 beats per minutes. On physical examination he has crackles at the bases. WBC count is 5.8 hemoglobin is 13.2 d-dimer is 0.89 slightly elevated. Ferritin is over 4400, continues to rise. LDH is rising now 2879 and C-reactive protein is rising at 166.0. Surprisingly, the patient does not seem to be in any distress, and he is relatively asymptomatic except for occasional cough. Reevaluated today on 08/22/19, patient remains in the ICU, he is on a high flow nasal cannula, and O2 saturation is in the low 90s, ranging between 89-93%. However clinically the patient is basically asymptomatic, he is afebrile, he is in normal sinus rhythm, chest x-ray shows diffuse interstitial infiltrates bilaterally. Lasix was given again today 40 mg IV push. And he was given Lasix yesterday. Again the patient is basically asymptomatic in spite of of his chest x-ray appearance and in spite of marginal O2 saturation. Electrolytes are normal, renal profile is normal liver enzymes are a bit elevated with AST of 283 ALT of 266 LDH is 2397 slightly better compared to yesterday. C-reactive protein is 84 improved compared to yesterday. CBC is relatively normal Reevaluated today on 08/23/19, patient remains on the high flow nasal cannula, remains in the ICU, and overall status is marginal at best. Patient is relatively asymptomatic. Hemodynamically stable, O2 saturation is up-to-date to 97% on 9 L high flow nasal cannula, and we cut down the high flow to 6 L. Chest x-ray continues to show diffuse bilateral infiltrates consistent with coronal virus pneumonitis. Inflammatory markers were reviewed, LDH is 06/15/2007, ferritin is 5126, and C-reactive protein is 46. Basic metabolic profile is normal, CBC is relatively normal Objective - Vital Signs Vital signs: Vital Signs Temp 98.3 F 08/23/19 12:00 Pulse 71 08/23/19 12:00 Resp 14 08/23/19 12:00 BP 141/66 08/23/19 12:00 Pulse Ox 97 08/23/19 12:00 Intake & Output 08/22/19 08/23/19 08/23/19 18:59 06:59 18:59 Intake Total 240 690 790 Output Total 830 360 0 Balance -590 330 790 Weight 82.1 kg 82.1 kg Intake: IV 240 240 110 normal saline 240 240 110 Intake, IV Titration 100 Amount cefTRIAXone 1 gm In 100 Sodium Chloride 0.9% 50 ml @ 100 mls/hr IVPB Q24HR [facility] Rx#:[id number] Oral 450 580 Output: Urine 830 360 0 Other: Voiding Method Indwelling Catheter Toilet Urinal # Voids 1 # Bowel Movements 1 1 - Exam GENERAL: Revealed 83-year-old white male, remains on high flow nasal cannula with O2 saturation is 97% on 9 L nasal cannula. High flow HEENT: PERRLA, EOMI, no icterus, moist mucous membranes. Head is atraumatic, normocephalic. NECK: Supple without lymphadenopathy. CHEST: Symmetrical chest expansion, diffuse crackles bilaterally. No wheezes. CARDIOVASCULAR: Normal S1 and S2, no S3 gallop. ABDOMEN: Soft nontender no megaly no rebound no guarding. Positive bowel sounds. MUSCULOSKELETAL: No limitation of range of motion, no deformities NEUROLOGIC: Patient is awake, does not answer any questions, hard of hearing, could not fully perform a adequate neurological examination PSYCH: Blunted mood and affect. SKIN: No rashes, no petechiae - Labs CBC & Chem 7: 08/23/19 04:24 08/23/19 04:24 Labs: Abnormal Lab Results - Last 24 Hours (Table) 08/22/19 08/22/19 08/23/19 Range/Units 16:46 21:26 04:24 WBC (3.8-10.6) k/uL Hgb (13.0-17.5) gm/dL MCV (80.0-100.0) fL MCH (25.0-35.0) pg Neutrophils # (1.3-7.7) k/uL Lymphocytes # (1.0-4.8) k/uL Sodium 136 L (137-145) mmol/L BUN 32 H (9-20) mg/dL Glucose 161 H (74-99) mg/dL POC Glucose (mg/dL) 185 H 145 H (75-99) mg/dL Calcium 8.0 L (8.4-10.2) mg/dL Ferritin 5126.7 H (22.0-322.0) ng/mL AST 263 H (17-59) U/L ALT 305 H (4-49) U/L Lactate Dehydrogenase 2108 H (313-618) U/L Creatine Kinase 222 H (55-170) U/L C-Reactive Protein 46.1 H (<10.0) mg/L Total Protein 6.1 L (6.3-8.2) g/dL Albumin 3.0 L (3.5-5.0) g/dL 08/23/19 08/23/19 08/23/19 Range/Units 04:24 06:49 10:54 WBC 11.3 H (3.8-10.6) k/uL Hgb 12.8 L (13.0-17.5) gm/dL MCV 72.0 L (80.0-100.0) fL MCH 22.5 L (25.0-35.0) pg Neutrophils # 9.6 H (1.3-7.7) k/uL Lymphocytes # 0.7 L (1.0-4.8) k/uL Sodium (137-145) mmol/L BUN (9-20) mg/dL Glucose (74-99) mg/dL POC Glucose (mg/dL) 166 H 156 H (75-99) mg/dL Calcium (8.4-10.2) mg/dL Ferritin (22.0-322.0) ng/mL AST (17-59) U/L ALT (4-49) U/L Lactate Dehydrogenase (313-618) U/L Creatine Kinase (55-170) U/L C-Reactive Protein (<10.0) mg/L Total Protein (6.3-8.2) g/dL Albumin (3.5-5.0) g/dL Microbiology - Last 24 Hours (Table) 08/17/19 01:29 Blood Culture - Final Blood No Growth after 144 hours Assessment and Plan Assessment: Impression: Acute hypoxic respiratory failure secondary to severe pneumonitis secondary to covid 19 Benign essential hypertension elevated liver enzymes secondary to covid 19 infection Elevated inflammatory markers for covid 19 pneumonitis. Recommendation: Continue patient on high flow nasal cannula. Titrate accordingly keep O2 saturation above 90%. Continue to monitor closely in the ICU, will recommend intubation if his clinical status deteriorates. Continue hydroxychloroquine, ceftriaxone, methylprednisolone, zinc, Prognosis remains guarded. Consider transferring the patient out of the ICU if his O2 saturation continues to hold in the 90s on present FiO2. We'll continue to follow. Time with Patient: Less than 30
[2019-08-23] MEDS ORDERED: FUROSEMIDE 10 MG/ML 2 ML VIAL IV STA (13:25)
[2019-08-23 17:08] LABS: Glucose,Whole Blood 151 mg/dL (75-99)
--- NOTE | 2019-08-23 17:19 | P.PN ---
Subjective Progress Note Date: 08/23/19 Principal diagnosis: COVID 19 Patient was seen and examined. Oxygen requirement has decreased from 15 L high flow to 8 L high flow nasal cannula. Patient desaturating low 90s. He was evaluated by pulmonology and transferred out of ICU. Patient has no complaints. Watching TV. No reported events by nursing. Objective - Vital Signs Vital signs: Vital Signs Temp 98.5 F 08/23/19 16:26 Pulse 72 08/23/19 16:26 Resp 17 08/23/19 16:26 BP 155/64 08/23/19 16:26 Pulse Ox 90 L 08/23/19 16:26 Intake & Output 08/22/19 08/23/19 08/23/19 18:59 06:59 18:59 Intake Total 240 690 830 Output Total 830 360 300 Balance -590 330 530 Weight 82.1 kg 82.1 kg Intake: IV 240 240 150 normal saline 240 240 150 Intake, IV Titration 100 Amount cefTRIAXone 1 gm In 100 Sodium Chloride 0.9% 50 ml @ 100 mls/hr IVPB Q24HR [facility] Rx#:[id number] Oral 450 580 Output: Urine 830 360 300 Other: Voiding Method Indwelling Catheter Toilet Urinal # Voids 1 # Bowel Movements 1 1 - Exam General: [non toxic], [dyspnea, mild distress], [appears at stated age] Derm: [warm], [dry] Head: [atraumatic], [normocephalic], [symmetric] Eyes: [EOMI], [no lid lag], [anicteric sclera] Mouth: [no lip lesion], [mucus membranes moist] Cardiovascular: [S1S2 reg], [no murmur], [positive posterior tibial pulse bilateral], Lungs: [Crackles bilateral], [no rhonchi, no rales] , [no accessory muscle use] Abdominal: [soft], [ nontender to palpation], [no guarding], [no appreciable organomegaly] Ext: [no gross muscle atrophy], [no edema], [no contractures] Neuro: [Decreased ability to hear on both sides], [no focal neuro deficits] Psych: [Alert], [oriented], [appropriate affect] - Labs CBC & Chem 7: 08/23/19 04:24 08/23/19 04:24 Labs: Abnormal Lab Results - Last 24 Hours (Table) 08/22/19 08/23/19 08/23/19 Range/Units 21:26 04:24 04:24 WBC 11.3 H (3.8-10.6) k/uL Hgb 12.8 L (13.0-17.5) gm/dL MCV 72.0 L (80.0-100.0) fL MCH 22.5 L (25.0-35.0) pg Neutrophils # 9.6 H (1.3-7.7) k/uL Lymphocytes # 0.7 L (1.0-4.8) k/uL Sodium 136 L (137-145) mmol/L BUN 32 H (9-20) mg/dL Glucose 161 H (74-99) mg/dL POC Glucose (mg/dL) 145 H (75-99) mg/dL Calcium 8.0 L (8.4-10.2) mg/dL Ferritin 5126.7 H (22.0-322.0) ng/mL AST 263 H (17-59) U/L ALT 305 H (4-49) U/L Lactate Dehydrogenase 2108 H (313-618) U/L Creatine Kinase 222 H (55-170) U/L C-Reactive Protein 46.1 H (<10.0) mg/L Total Protein 6.1 L (6.3-8.2) g/dL Albumin 3.0 L (3.5-5.0) g/dL 08/23/19 08/23/19 08/23/19 Range/Units 06:49 10:54 17:07 WBC (3.8-10.6) k/uL Hgb (13.0-17.5) gm/dL MCV (80.0-100.0) fL MCH (25.0-35.0) pg Neutrophils # (1.3-7.7) k/uL Lymphocytes # (1.0-4.8) k/uL Sodium (137-145) mmol/L BUN (9-20) mg/dL Glucose (74-99) mg/dL POC Glucose (mg/dL) 166 H 156 H 151 H (75-99) mg/dL Calcium (8.4-10.2) mg/dL Ferritin (22.0-322.0) ng/mL AST (17-59) U/L ALT (4-49) U/L Lactate Dehydrogenase (313-618) U/L Creatine Kinase (55-170) U/L C-Reactive Protein (<10.0) mg/L Total Protein (6.3-8.2) g/dL Albumin (3.5-5.0) g/dL Microbiology - Last 24 Hours (Table) 08/17/19 01:29 Blood Culture - Final Blood No Growth after 144 hours Assessment and Plan Assessment: Bilateral pneumonia due to COVID-19 infection, acute hypoxic respiratory failure -Completed course of hydroxychloroquine -Limit fluids -Supportive care -stop doxy, continues to be on Rocephin will discuss with pulmonology regarding discontinuing this medication -Limit IV fluids -Follow d-dimer, ferritin, LDH, CPK, and CRP (liver enzymes are slightly worsening, LDH slight improvement, CPK improved, CRP improved) Transaminitis due to above - continue to monitor Hyponatremia due to hypovolemia -Improving with IVF -Encourage oral fluid intake - IV fluids gentle with infection -Repeat BMP in a.m. Thrombocytopenia, suspect reactive -Follow CBC Hypertension -Continue with metoprolol and ARB -Follow blood pressures Dyslipidemia -Continue statin therapy Attempted to update son through this phone number [phone], went to [facility] for the last 3 days, will reattempt tomorrow. Patient is transferred out of ICU. Prognosis is guarded. Pulmonology is following.
[2019-08-23 20:40] LABS: Glucose,Whole Blood 158 mg/dL (75-99)
[2019-08-23] MEDS: ATORVASTATIN 40 MG TAB PO SCH (20:49)
[2019-08-24] MEDS: HEPARIN SODIUM,PORCINE 5,000 UNIT/ML 1 ML VIAL SQ SCH ×4 (01:29→23:17)
[2019-08-24] MEDS: SODIUM CHLORIDE 0.9% 1,000 ML IV SCH (06:08)
[2019-08-24 06:52] LABS: Glucose,Whole Blood 157 mg/dL (75-99)
[2019-08-24] MEDS: INSULIN ASPART (NovoLOG) 100 UNIT/ML VIAL SQ SCH ×4 (08:19→22:04)
[2019-08-24] MEDS: METOPROLOL TARTRATE 25 MG TAB PO SCH ×2 (08:21→22:07)
[2019-08-24] MEDS: ZINC SULFATE 220 MG CAP PO SCH (08:21)
[2019-08-24] MEDS: LOSARTAN 50 MG TAB PO SCH (08:21)
[2019-08-24] MEDS: methylPREDNISolone SOD SUCCI 40 MG/ML 1 ML VIAL IV SCH ×2 (08:22→22:08)
[2019-08-24] MEDS: ASPIRIN 81 MG PO SCH (08:22)
[2019-08-24] MEDS: ALLOPURINOL 100 MG TAB PO SCH (08:22)
[2019-08-24 09:16] LABS: Basophils % (A) 0 %; Eosinophils % (A) 0 %; HCT 40.8 % (39.0-53.0); HGB 13.1 gm/dL (13.0-17.5); Hypochromasia Slight; Lymphocytes # (A) 0.5 k/uL (1.0-4.8); Lymphocytes % (A) 6 %; MCH 23.1 pg (25.0-35.0); MCV 72.1 fL (80.0-100.0); Mean Platelet Volume 6.5; Microcytosis Slight; Monocytes # (A) 0.4 k/uL (0-1.0); Monocytes % (A) 5 %; Neutrophils # (A) 6.4 k/uL (1.3-7.7); Neutrophils % (A) 86 %; Platelet Count 268 k/uL (150-450); RBC 5.66 m/uL (4.30-5.90); RDW 14.5 % (11.5-15.5); WBC 7.4 k/uL (3.8-10.6)
[2019-08-24 09:29] LABS: ALT 272 U/L (4-49); AST 143 U/L (17-59); African American GFR (CKD) >90 (>60 ml/min/1.73 sqM); Albumin 3.2 g/dL (3.5-5.0); Alkaline Phosphatase 117 U/L (38-126); Anion Gap 6 mmol/L; Blood Urea Nitrogen 29 mg/dL (9-20); C Reactive Protein 25.3 mg/L (<10.0); Calcium 7.9 mg/dL (8.4-10.2); Carbon Dioxide 26 mmol/L (22-30); Chloride 105 mmol/L (98-107); Creatine Kinase 246 U/L (55-170); Glucose 160 mg/dL (74-99); Non-African American GFR(CKD) 84 (>60 ml/min/1.73 sqM); Potassium 4.1 mmol/L (3.5-5.1); Sodium 137 mmol/L (137-145); Total Protein 6.2 g/dL (6.3-8.2)
[2019-08-24 11:29] LABS: Glucose,Whole Blood 139 mg/dL (75-99)
--- NOTE | 2019-08-24 11:54 | P.PN ---
Subjective Progress Note Date: 08/24/19 Principal diagnosis: Acute CoVID 19 pneumonitis This is an 83-year-old white male who was transferred actually 4 days ago to our facility from [facility], patient was admitted initially with 1 week history of abdominal pain, and his pain was associated with cough, no diarrhea no nausea no vomiting. Patient also had fevers and chills, and dry cough. Apparently while at [facility], patient tested positive for covid 19, patient was treated with hydroxychloroquine, he also received Rocephin and doxycycline. Patient was transferred to our facility a few days ago, however his chest x-ray is showing significant worsening of his pneumonitis. And his O2 requirement has gone up over the last 4 days from 2 L to 11 L high flow nasal cannula. I evaluated the patient on the medical floor, patient did not seem to be in distress, however he is on a high flow nasal cannula, and his chest x-ray is concerning. Significantly worse over the last few days. Hence I recommended transferring the patient to the intensive care unit. In the meantime I have placed orders to address his pneumonitis. The patient himself is an extremely poor historian, hard of hearing, and could not answer any question I have asked him. Patient was reevaluated today on 08/21/19, patient is a positive covid 19 pneumonitis patient, with increased inflammatory markers, remains on high flow nasal cannula at 15 L/m, he seems to be in no form of distress, O2 saturation is marginal in the low 90s presently 92%. Patient has 0.9 normal saline at KVO, chest x-ray is showing slight improvement. Remains in normal sinus rhythm at 90 beats per minutes. On physical examination he has crackles at the bases. WBC count is 5.8 hemoglobin is 13.2 d-dimer is 0.89 slightly elevated. Ferritin is over 4400, continues to rise. LDH is rising now 2879 and C-reactive protein is rising at 166.0. Surprisingly, the patient does not seem to be in any distress, and he is relatively asymptomatic except for occasional cough. Reevaluated today on 08/22/19, patient remains in the ICU, he is on a high flow nasal cannula, and O2 saturation is in the low 90s, ranging between 89-93%. However clinically the patient is basically asymptomatic, he is afebrile, he is in normal sinus rhythm, chest x-ray shows diffuse interstitial infiltrates bilaterally. Lasix was given again today 40 mg IV push. And he was given Lasix yesterday. Again the patient is basically asymptomatic in spite of of his chest x-ray appearance and in spite of marginal O2 saturation. Electrolytes are normal, renal profile is normal liver enzymes are a bit elevated with AST of 283 ALT of 266 LDH is 2397 slightly better compared to yesterday. C-reactive protein is 84 improved compared to yesterday. CBC is relatively normal Reevaluated today on 08/23/19, patient remains on the high flow nasal cannula, remains in the ICU, and overall status is marginal at best. Patient is relatively asymptomatic. Hemodynamically stable, O2 saturation is up-to-date to 97% on 9 L high flow nasal cannula, and we cut down the high flow to 6 L. Chest x-ray continues to show diffuse bilateral infiltrates consistent with coronal v irus pneumonitis. Inflammatory markers were reviewed, LDH is 06/15/2007, ferritin is 5126, and C-reactive protein is 46. Basic metabolic profile is normal, CBC is relatively normal. The patient is seen today 08/24/2019 in follow-up on the regular medical floor. He is currently awake and alert in no acute distress. He is still requiring 15 L high flow nasal cannula to maintain O2 saturations in the 90s. He is currently afebrile. Hemodynamically stable. Blood culture reveals no growth. White count 7.4. Hemoglobin 13.1. Creatinine 0.76. AST 143. ALT 272. Creatinine kinase to 46. C-reactive protein 25. He is continued on ceftriaxone, IV Solu-Medrol, zinc. He has completed his course of Plaquenil. Objective - Vital Signs Vital signs: Vital Signs Temp 97.9 F 08/24/19 07:00 Pulse 71 08/24/19 07:00 Resp 24 08/24/19 07:00 BP 153/70 08/24/19 07:00 Pulse Ox 93 L 08/24/19 08:28 Intake & Output 08/23/19 08/24/19 08/24/19 18:59 06:59 18:59 Intake Total 830 265 100 Output Total 300 200 Balance 530 65 100 Weight 82.1 kg Intake: IV 150 normal saline 150 Intake, IV Titration 100 240 Amount Sodium Chloride 0.9% 1, 240 000 ml @ 20 mls/hr IV . Q24H YESI Rx#:[id number] cefTRIAXone 1 gm In 100 Sodium Chloride 0.9% 50 ml @ 100 mls/hr IVPB Q24HR YESI Rx#:[id number] Oral 580 25 100 Output: Urine 300 200 Other: Voiding Method Toilet Toilet Urinal Urinal # Voids 1 # Bowel Movements 1 - Exam GENERAL: Revealed 83-year-old male patient, remains on high flow nasal cannula with O2 saturation is 91% on 15 L high flow nasal cannula. HEENT: PERRLA, EOMI, no icterus, moist mucous membranes. Head is atraumatic, normocephalic. NECK: Supple without lymphadenopathy. CHEST: Symmetrical chest expansion, diffuse crackles bilaterally. No wheezes. CARDIOVASCULAR: Normal S1 and S2, no S3 gallop. ABDOMEN: Soft nontender no megaly no rebound no guarding. Positive bowel sounds. MUSCULOSKELETAL: No limitation of range of motion, no deformities NEUROLOGIC: Patient is awake, does not answer any questions, hard of hearing, could not fully perform a adequate neurological examination PSYCH: Blunted mood and affect. SKIN: No rashes, no petechiae - Labs CBC & Chem 7: 08/24/19 08:55 08/24/19 08:55 Labs: Abnormal Lab Results - Last 24 Hours (Table) 08/23/19 08/23/19 08/23/19 Range/Units 04:24 17:07 20:39 MCV (80.0-100.0) fL MCH (25.0-35.0) pg Lymphocytes # (1.0-4.8) k/uL BUN (9-20) mg/dL Glucose (74-99) mg/dL POC Glucose (mg/dL) 151 H 158 H (75-99) mg/dL Calcium (8.4-10.2) mg/dL Ferritin 5126.7 H (22.0-322.0) ng/mL AST (17-59) U/L ALT (4-49) U/L Creatine Kinase (55-170) U/L C-Reactive Protein (<10.0) mg/L Total Protein (6.3-8.2) g/dL Albumin (3.5-5.0) g/dL 08/24/19 08/24/19 08/24/19 Range/Units 06:50 08:55 08:55 MCV 72.1 L (80.0-100.0) fL MCH 23.1 L (25.0-35.0) pg Lymphocytes # 0.5 L (1.0-4.8) k/uL BUN 29 H (9-20) mg/dL Glucose 160 H (74-99) mg/dL POC Glucose (mg/dL) 157 H (75-99) mg/dL Calcium 7.9 L (8.4-10.2) mg/dL Ferritin (22.0-322.0) ng/mL AST 143 H (17-59) U/L ALT 272 H (4-49) U/L Creatine Kinase 246 H (55-170) U/L C-Reactive Protein 25.3 H (<10.0) mg/L Total Protein 6.2 L (6.3-8.2) g/dL Albumin 3.2 L (3.5-5.0) g/dL 08/24/19 Range/Units 11:27 MCV (80.0-100.0) fL MCH (25.0-35.0) pg Lymphocytes # (1.0-4.8) k/uL BUN (9-20) mg/dL Glucose (74-99) mg/dL POC Glucose (mg/dL) 139 H (75-99) mg/dL Calcium (8.4-10.2) mg/dL Ferritin (22.0-322.0) ng/mL AST (17-59) U/L ALT (4-49) U/L Creatine Kinase (55-170) U/L C-Reactive Protein (<10.0) mg/L Total Protein (6.3-8.2) g/dL Albumin (3.5-5.0) g/dL Assessment and Plan Assessment: Acute hypoxic respiratory failure secondary to severe pneumonitis secondary to Covid 19 Benign essential hypertension elevated liver enzymes secondary to covid 19 infection Elevated inflammatory markers for covid 19 pneumonitis. Plan: The patient was seen and evaluated by Dr. Birch Currently on 15 L high flow nasal cannula Repeat chest x-ray, labs in a.m. Continue ceftriaxone, steroids, zinc. Complete course of hydroxychloroquine Overall prognosis quite guarded. Transfer to the ICU if requiring increased oxygen supplementation for possible intubation We will continue to follow make further recommendations based on his clinical status. I, the cosigning physician, performed a history & physical examination of the patient. Lungs sounds with basilar crackles. Maintaining good O2 saturations in the 90s on 15 L high flow nasal cannula. I discussed the assessment and plan of care with my nurse practitioner, Winnie Villafuerte. I attest to the above note as dictated by her.
--- NOTE | 2019-08-24 16:02 | P.PN ---
Subjective Progress Note Date: 08/24/19 Principal diagnosis: COVID 19 Patient is an 83-year-old [place] male with a past medical history of hypertension controlled with medication, gout, and dyslipidemia who presented to [facility] with a one-week history of right upper quadrant pain and coughing. He was transferred here as part of the Covid relief process. He underwent a CT of the chest which showed patchy opacities bilaterally. He was started on Doxy and hydroxychloroquine. He had fevers up to 101.9 on the night of admission. Laboratory analysis showed lymphopenia, hyponatremia, elevated ferritin, AST 72, LDH 882, CPK 654, and CRP 32.4. Pro-calcitonin was negative. Influenza A and B were negative. Chest x-ray showed bilateral interstitial infiltrates in the lower lobes. He underwent an abdominal ultrasound which was nonacute. He continued to spike fevers after admission with a T-max of 100.5 on 08/17/2019. Patient completed his course of hydroxychloroquine. He was initially on 2 L nasal cannula but by 08/21/2019 he was requiring 15 L high flow to maintain O2 saturation in the low 90s. Pulmonology recommended transfer to ICU for closer monitoring. He was monitored in the ICU on high flow nasal cannula and was downgraded to general floor on 08/23/2019. Patient was seen and examined. Patient is currently on 13L high flow. No reported events by nursing. He denies any complaints at this time. Objective - Vital Signs Vital signs: Vital Signs Temp 97.9 F 08/24/19 07:00 Pulse 71 08/24/19 07:00 Resp 24 08/24/19 07:00 BP 153/70 08/24/19 07:00 Pulse Ox 93 L 08/24/19 08:28 Intake & Output 08/23/19 08/24/19 08/24/19 18:59 06:59 18:59 Intake Total 830 265 100 Output Total 300 200 Balance 530 65 100 Weight 82.1 kg Intake: IV 150 normal saline 150 Intake, IV Titration 100 240 Amount Sodium Chloride 0.9% 1, 240 000 ml @ 20 mls/hr IV . Q24H YESI Rx#:[id number] cefTRIAXone 1 gm In 100 Sodium Chloride 0.9% 50 ml @ 100 mls/hr IVPB Q24HR YESI Rx#:[id number] Oral 580 25 100 Output: Urine 300 200 Other: Voiding Method Toilet Toilet Urinal Urinal # Voids 1 # Bowel Movements 1 - Exam General: [non toxic], [dyspnea, mild distress], [appears at stated age] Derm: [warm], [dry] Head: [atraumatic], [normocephalic], [symmetric] Eyes: [EOMI], [no lid lag], [anicteric sclera] Mouth: [no lip lesion], [mucus membranes moist] Cardiovascular: [S1S2 reg], [no murmur], [positive posterior tibial pulse bilateral], Lungs: [Crackles bilateral], [no rhonchi, no rales] , [no accessory muscle use] Abdominal: [soft], [ nontender to palpation], [no guarding], [no appreciable organomegaly] Ext: [no gross muscle atrophy], [no edema], [no contractures] Neuro: [Decreased ability to hear on both sides], [no focal neuro deficits] Psych: [Alert], [oriented], [appropriate affect] - Labs CBC & Chem 7: 08/24/19 08:55 08/24/19 08:55 Labs: Abnormal Lab Results - Last 24 Hours (Table) 08/23/19 08/23/19 08/23/19 Range/Units 04:24 17:07 20:39 MCV (80.0-100.0) fL MCH (25.0-35.0) pg Lymphocytes # (1.0-4.8) k/uL BUN (9-20) mg/dL Glucose (74-99) mg/dL POC Glucose (mg/dL) 151 H 158 H (75-99) mg/dL Calcium (8.4-10.2) mg/dL Ferritin 5126.7 H (22.0-322.0) ng/mL AST (17-59) U/L ALT (4-49) U/L Creatine Kinase (55-170) U/L C-Reactive Protein (<10.0) mg/L Total Protein (6.3-8.2) g/dL Albumin (3.5-5.0) g/dL 08/24/19 08/24/19 08/24/19 Range/Units 06:50 08:55 08:55 MCV 72.1 L (80.0-100.0) fL MCH 23.1 L (25.0-35.0) pg Lymphocytes # 0.5 L (1.0-4.8) k/uL BUN 29 H (9-20) mg/dL Glucose 160 H (74-99) mg/dL POC Glucose (mg/dL) 157 H (75-99) mg/dL Calcium 7.9 L (8.4-10.2) mg/dL Ferritin (22.0-322.0) ng/mL AST 143 H (17-59) U/L ALT 272 H (4-49) U/L Creatine Kinase 246 H (55-170) U/L C-Reactive Protein 25.3 H (<10.0) mg/L Total Protein 6.2 L (6.3-8.2) g/dL Albumin 3.2 L (3.5-5.0) g/dL 08/24/19 Range/Units 11:27 MCV (80.0-100.0) fL MCH (25.0-35.0) pg Lymphocytes # (1.0-4.8) k/uL BUN (9-20) mg/dL Glucose (74-99) mg/dL POC Glucose (mg/dL) 139 H (75-99) mg/dL Calcium (8.4-10.2) mg/dL Ferritin (22.0-322.0) ng/mL AST (17-59) U/L ALT (4-49) U/L Creatine Kinase (55-170) U/L C-Reactive Protein (<10.0) mg/L Total Protein (6.3-8.2) g/dL Albumin (3.5-5.0) g/dL Assessment and Plan Assessment: Bilateral pneumonia due to COVID-19 infection, acute hypoxic respiratory failure -Completed course of hydroxychloroquine -Limit fluids -Supportive care -stop doxy, continues to be on Rocephin will discuss with pulmonology regarding discontinuing this medication -Limit IV fluids -Follow d-dimer, ferritin, LDH, CPK, and CRP (liver enzymes are improved today, LDH slight improvement, CPK slightly worsened, CRP improved) Transaminitis due to above - continue to monitor Thrombocytopenia, suspect reactive -Follow CBC Hypertension -Continue with metoprolol and ARB -Follow blood pressures Dyslipidemia -Continue statin therapy
[2019-08-24 16:28] LABS: Glucose,Whole Blood 162 mg/dL (75-99)
[2019-08-24 18:05] LABS: Ferritin 3265.2 ng/mL (22.0-322.0)
[2019-08-24 21:55] LABS: Glucose,Whole Blood 138 mg/dL (75-99)
[2019-08-24] MEDS: ATORVASTATIN 40 MG TAB PO SCH (22:07)
[2019-08-25] MEDS: SODIUM CHLORIDE 0.9% 1,000 ML IV SCH (03:34)
[2019-08-25 06:53] LABS: Glucose,Whole Blood 168 mg/dL (75-99)
--- NOTE | 2019-08-25 07:05 | XR ---
EXAMINATION TYPE: XR chest 1V portable DATE OF EXAM: 08/25/2019 HISTORY: CoVID pneumonia. REFERENCE: Previous study dated 08/23/2019. FINDINGS: The heart is enlarged. There are worsening bilateral infiltrates. There is blunting of both CP angles. I could not exclude small effusions. IMPRESSION: 1. CARDIOMEGALY. 2. WORSENING BILATERAL INFILTRATES. 3. I COULD NOT EXCLUDE SMALL, BILATERAL EFFUSIONS.
[2019-08-25] MEDS: HEPARIN SODIUM,PORCINE 5,000 UNIT/ML 1 ML VIAL SQ SCH ×3 (07:29→23:36)
[2019-08-25] MEDS: INSULIN ASPART (NovoLOG) 100 UNIT/ML VIAL SQ SCH ×4 (07:29→21:26)
[2019-08-25] MEDS: methylPREDNISolone SOD SUCCI 40 MG/ML 1 ML VIAL IV SCH ×2 (07:29→21:27)
[2019-08-25] MEDS: ALLOPURINOL 100 MG TAB PO SCH (07:30)
[2019-08-25] MEDS: LOSARTAN 50 MG TAB PO SCH (07:30)
[2019-08-25] MEDS: ZINC SULFATE 220 MG CAP PO SCH (07:30)
[2019-08-25] MEDS: ASPIRIN 81 MG PO SCH (07:30)
[2019-08-25] MEDS: METOPROLOL TARTRATE 25 MG TAB PO SCH ×2 (07:30→21:27)
[2019-08-25 07:39] LABS: Basophils % (A) 0 %; Eosinophils # (A) 0.1 k/uL (0-0.7); Eosinophils % (A) 1 %; HCT 42.7 % (39.0-53.0); HGB 13.4 gm/dL (13.0-17.5); Hypochromasia Slight; Lymphocytes # (A) 0.5 k/uL (1.0-4.8); Lymphocytes % (A) 6 %; MCHC 31.4 g/dL (31.0-37.0); MCV 73.2 fL (80.0-100.0); Mean Platelet Volume 6.8; Microcytosis Slight; Monocytes # (A) 0.3 k/uL (0-1.0); Monocytes % (A) 4 %; Neutrophils # (A) 6.5 k/uL (1.3-7.7); Neutrophils % (A) 88 %; Platelet Count 270 k/uL (150-450); RBC 5.84 m/uL (4.30-5.90); RDW 14.4 % (11.5-15.5); WBC 7.4 k/uL (3.8-10.6)
[2019-08-25 07:55] LABS: ALT 219 U/L (4-49); AST 92 U/L (17-59); African American GFR (CKD) >90 (>60 ml/min/1.73 sqM); Albumin 3.2 g/dL (3.5-5.0); Alkaline Phosphatase 121 U/L (38-126); Anion Gap 7 mmol/L; Blood Urea Nitrogen 26 mg/dL (9-20); C Reactive Protein 16.6 mg/L (<10.0); Calcium 8.1 mg/dL (8.4-10.2); Carbon Dioxide 23 mmol/L (22-30); Chloride 107 mmol/L (98-107); Creatine Kinase 238 U/L (55-170); Glucose 162 mg/dL (74-99); Non-African American GFR(CKD) 86 (>60 ml/min/1.73 sqM); Potassium 4.5 mmol/L (3.5-5.1); Sodium 137 mmol/L (137-145); Total Protein 6.4 g/dL (6.3-8.2)
[2019-08-25 11:26] LABS: Glucose,Whole Blood 185 mg/dL (75-99)
--- NOTE | 2019-08-25 11:41 | P.PN ---
Subjective Progress Note Date: 08/25/19 Principal diagnosis: Acute CoVID 19 pneumonitis This is an 83-year-old white male who was transferred actually 4 days ago to our facility from [facility], patient was admitted initially with 1 week history of abdominal pain, and his pain was associated with cough, no diarrhea no nausea no vomiting. Patient also had fevers and chills, and dry cough. Apparently while at [facility], patient tested positive for covid 19, patient was treated with hydroxychloroquine, he also received Rocephin and doxycycline. Patient was transferred to our facility a few days ago, however his chest x-ray is showing significant worsening of his pneumonitis. And his O2 requirement has gone up over the last 4 days from 2 L to 11 L high flow nasal cannula. I evaluated the patient on the medical floor, patient did not seem to be in distress, however he is on a high flow nasal cannula, and his chest x-ray is concerning. Significantly worse over the last few days. Hence I recommended transferring the patient to the intensive care unit. In the meantime I have placed orders to address his pneumonitis. The patient himself is an extremely poor historian, hard of hearing, and could not answer any question I have asked him. Patient was reevaluated today on 08/21/19, patient is a positive covid 19 pneumonitis patient, with increased inflammatory markers, remains on high flow nasal cannula at 15 L/m, he seems to be in no form of distress, O2 saturation is marginal in the low 90s presently 92%. Patient has 0.9 normal saline at KVO, chest x-ray is showing slight improvement. Remains in normal sinus rhythm at 90 beats per minutes. On physical examination he has crackles at the bases. WBC count is 5.8 hemoglobin is 13.2 d-dimer is 0.89 slightly elevated. Ferritin is over 4400, continues to rise. LDH is rising now 2879 and C-reactive protein is rising at 166.0. Surprisingly, the patient does not seem to be in any distress, and he is relatively asymptomatic except for occasional cough. Reevaluated today on 08/22/19, patient remains in the ICU, he is on a high flow nasal cannula, and O2 saturation is in the low 90s, ranging between 89-93%. However clinically the patient is basically asymptomatic, he is afebrile, he is in normal sinus rhythm, chest x-ray shows diffuse interstitial infiltrates bilaterally. Lasix was given again today 40 mg IV push. And he was given Lasix yesterday. Again the patient is basically asymptomatic in spite of of his chest x-ray appearance and in spite of marginal O2 saturation. Electrolytes are normal, renal profile is normal liver enzymes are a bit elevated with AST of 283 ALT of 266 LDH is 2397 slightly better compared to yesterday. C-reactive protein is 84 improved compared to yesterday. CBC is relatively normal Reevaluated today on 08/23/19, patient remains on the high flow nasal cannula, remains in the ICU, and overall status is marginal at best. Patient is relatively asymptomatic. Hemodynamically stable, O2 saturation is up-to-date to 97% on 9 L high flow nasal cannula, and we cut down the high flow to 6 L. Chest x-ray continues to show diffuse bilateral infiltrates consistent with coronal v irus pneumonitis. Inflammatory markers were reviewed, LDH is 06/15/2007, ferritin is 5126, and C-reactive protein is 46. Basic metabolic profile is normal, CBC is relatively normal. The patient is seen today 08/24/2019 in follow-up on the regular medical floor. He is currently awake and alert in no acute distress. He is still requiring 15 L high flow nasal cannula to maintain O2 saturations in the 90s. He is currently afebrile. Hemodynamically stable. Blood culture reveals no growth. White count 7.4. Hemoglobin 13.1. Creatinine 0.76. AST 143. ALT 272. Creatinine kinase to 46. C-reactive protein 25. He is continued on ceftriaxone, IV Solu-Medrol, zinc. He has completed his course of Plaquenil. The patient is seen today 08/25/2019 in follow-up on the regular medical floor. He is currently resting comfortably in bed. States he is breathing a bit easier today compared to yesterday. Still requiring 11 L high flow nasal cannula to maintain O2 saturations in the 90s. He's been afebrile. Hemodynamically stable. Blood culture reveals no growth. White count 7.4. Hemoglobin 13.4. Platelets 270. Sodium 137. Potassium 4.5. Creatinine 0.72. AST 92. ALT 219 CK 238 C-reactive protein 16.6. D-dimer 3.00. He is currently on heparin for DVT prophylaxis. Remains on ceftriaxone, IV Solu-Medrol, zinc. Objective - Vital Signs Vital signs: Vital Signs Temp 97.6 F 08/25/19 11:14 Pulse 69 08/25/19 11:14 Resp 24 08/25/19 11:14 BP 156/70 08/25/19 11:14 Pulse Ox 94 L 08/25/19 11:14 Intake & Output 08/24/19 08/25/19 08/25/19 18:59 06:59 18:59 Intake Total 100 120 Output Total 950 Balance 100 -830 Intake: Oral 100 120 Output: Urine 950 Other: # Voids 2 2 - Exam GENERAL: Revealed 83-year-old male patient, remains on high flow nasal cannula with O2 saturation is 94% on 11 L high flow nasal cannula. HEENT: PERRLA, EOMI, no icterus, moist mucous membranes. Head is atraumatic, normocephalic. NECK: Supple without lymphadenopathy. CHEST: Symmetrical chest expansion, diffuse crackles bilaterally. No wheezes. CARDIOVASCULAR: Normal S1 and S2, no S3 gallop. ABDOMEN: Soft nontender no megaly no rebound no guarding. Positive bowel sounds. MUSCULOSKELETAL: No limitation of range of motion, no deformities NEUROLOGIC: Patient is awake, does not answer any questions, hard of hearing, could not fully perform a adequate neurological examination PSYCH: Blunted mood and affect. SKIN: No rashes, no petechiae - Labs CBC & Chem 7: 08/25/19 07:12 08/25/19 07:12 Labs: Abnormal Lab Results - Last 24 Hours (Table) 08/24/19 08/24/19 08/24/19 Range/Units 08:55 16:25 21:52 MCV (80.0-100.0) fL MCH (25.0-35.0) pg Lymphocytes # (1.0-4.8) k/uL D-Dimer (<0.60) mg/L FEU BUN (9-20) mg/dL Glucose (74-99) mg/dL POC Glucose (mg/dL) 162 H 138 H (75-99) mg/dL Calcium (8.4-10.2) mg/dL Ferritin 3265.2 H (22.0-322.0) ng/mL AST (17-59) U/L ALT (4-49) U/L Creatine Kinase (55-170) U/L C-Reactive Protein (<10.0) mg/L Albumin (3.5-5.0) g/dL 08/25/19 08/25/19 08/25/19 Range/Units 06:51 07:12 07:12 MCV 73.2 L (80.0-100.0) fL MCH 23.0 L (25.0-35.0) pg Lymphocytes # 0.5 L (1.0-4.8) k/uL D-Dimer (<0.60) mg/L FEU BUN 26 H (9-20) mg/dL Glucose 162 H (74-99) mg/dL POC Glucose (mg/dL) 168 H (75-99) mg/dL Calcium 8.1 L (8.4-10.2) mg/dL Ferritin (22.0-322.0) ng/mL AST 92 H (17-59) U/L ALT 219 H (4-49) U/L Creatine Kinase 238 H (55-170) U/L C-Reactive Protein 16.6 H (<10.0) mg/L Albumin 3.2 L (3.5-5.0) g/dL 08/25/19 08/25/19 Range/Units 07:12 11:24 MCV (80.0-100.0) fL MCH (25.0-35.0) pg Lymphocytes # (1.0-4.8) k/uL D-Dimer 3.00 H (<0.60) mg/L FEU BUN (9-20) mg/dL Glucose (74-99) mg/dL POC Glucose (mg/dL) 185 H (75-99) mg/dL Calcium (8.4-10.2) mg/dL Ferritin (22.0-322.0) ng/mL AST (17-59) U/L ALT (4-49) U/L Creatine Kinase (55-170) U/L C-Reactive Protein (<10.0) mg/L Albumin (3.5-5.0) g/dL Assessment and Plan Assessment: Acute hypoxic respiratory failure secondary to severe pneumonitis secondary to Covid 19 Benign essential hypertension Elevated liver enzymes secondary to covid 19 infection, trending down Elevated inflammatory markers for covid 19 pneumonitis, trending down Plan: The patient was seen and evaluated by Dr. Birch Currently down to 11 L high flow nasal cannula Chest x-ray continues to show bilateral infiltrates Continue ceftriaxone, steroids, zinc. Covid 19 markers trending down. D-dimer up to 3.00. Repeat in a.m. Continue heparin for DVT prophylaxis for now Completed a course of hydroxychloroquine Overall prognosis guarded Transfer to the ICU if requiring increased oxygen supplementation for possible intubation We will continue to follow and make further recommendations based on his clinical status. I, the cosigning physician, performed a history & physical examination of the patient. Lungs sounds with basilar crackles. Maintaining good O2 saturations in the 90s on 11 L high flow nasal cannula. I discussed the assessment and plan of care with my nurse practitioner, Winnie Villafuerte. I attest to the above note as dictated by her.
--- NOTE | 2019-08-25 16:18 | P.PN ---
Subjective Progress Note Date: 08/25/19 Principal diagnosis: COVID 19 Patient is an 83-year-old [place] male with a past medical history of hypertension controlled with medication, gout, and dyslipidemia who presented to [facility] with a one-week history of right upper quadrant pain and coughing. He was transferred here as part of the Covid relief process. He underwent a CT of the chest which showed patchy opacities bilaterally. He was started on Doxy and hydroxychloroquine. He had fevers up to 101.9 on the night of admission. Laboratory analysis showed lymphopenia, hyponatremia, elevated ferritin, AST 72, LDH 882, CPK 654, and CRP 32.4. Pro-calcitonin was negative. Influenza A and B were negative. Chest x-ray showed bilateral interstitial infiltrates in the lower lobes. He underwent an abdominal ultrasound which was nonacute. He continued to spike fevers after admission with a T-max of 100.5 on 08/17/2019. Patient completed his course of hydroxychloroquine. He was initially on 2 L nasal cannula but by 08/21/2019 he was requiring 15 L high flow to maintain O2 saturation in the low 90s. Pulmonology recommended transfer to ICU for closer monitoring. He continues to require 8-15L high flow oxygen to maintain adequate oxygenation and is low threshold for intubation. Patient was seen and examined. Patient is currently on 13L high flow. No reported events by nursing. He denies any complaints at this time. D-dimer increased to 3. Liver enzymes and CRP downtrending. Lactate dehydrogenase steady. Chest x-ray shows slight improvement today. Objective - Vital Signs Vital signs: Vital Signs Temp 97.8 F 08/25/19 15:00 Pulse 67 08/25/19 15:00 Resp 20 08/25/19 15:00 BP 151/75 08/25/19 15:00 Pulse Ox 91 L 08/25/19 15:00 Intake & Output 08/24/19 08/25/19 08/25/19 18:59 06:59 18:59 Intake Total 100 120 Output Total 950 600 Balance 100 -830 -600 Intake: Oral 100 120 Output: Urine 950 600 Other: # Voids 2 2 1 - Exam General: [non toxic], [dyspnea, mild distress], [appears at stated age] Derm: [warm], [dry] Head: [atraumatic], [normocephalic], [symmetric] Eyes: [EOMI], [no lid lag], [anicteric sclera] Mouth: [no lip lesion], [mucus membranes moist] Cardiovascular: [S1S2 reg], [no murmur], [positive posterior tibial pulse bilateral], Lungs: [Crackles bilateral], [no rhonchi, no rales] , [no accessory muscle use] Abdominal: [soft], [ nontender to palpation], [no guarding], [no appreciable organomegaly] Ext: [no gross muscle atrophy], [no edema], [no contractures] Neuro: [Decreased ability to hear on both sides], [no focal neuro deficits] Psych: [Alert], [oriented], [appropriate affect] - Labs CBC & Chem 7: 08/25/19 07:12 08/25/19 07:12 Labs: Abnormal Lab Results - Last 24 Hours (Table) 08/24/19 08/24/19 08/24/19 Range/Units 08:55 16:25 21:52 MCV (80.0-100.0) fL MCH (25.0-35.0) pg Lymphocytes # (1.0-4.8) k/uL D-Dimer (<0.60) mg/L FEU BUN (9-20) mg/dL Glucose (74-99) mg/dL POC Glucose (mg/dL) 162 H 138 H (75-99) mg/dL Calcium (8.4-10.2) mg/dL Ferritin 3265.2 H (22.0-322.0) ng/mL AST (17-59) U/L ALT (4-49) U/L Creatine Kinase (55-170) U/L C-Reactive Protein (<10.0) mg/L Albumin (3.5-5.0) g/dL 08/25/19 08/25/19 08/25/19 Range/Units 06:51 07:12 07:12 MCV 73.2 L (80.0-100.0) fL MCH 23.0 L (25.0-35.0) pg Lymphocytes # 0.5 L (1.0-4.8) k/uL D-Dimer (<0.60) mg/L FEU BUN 26 H (9-20) mg/dL Glucose 162 H (74-99) mg/dL POC Glucose (mg/dL) 168 H (75-99) mg/dL Calcium 8.1 L (8.4-10.2) mg/dL Ferritin (22.0-322.0) ng/mL AST 92 H (17-59) U/L ALT 219 H (4-49) U/L Creatine Kinase 238 H (55-170) U/L C-Reactive Protein 16.6 H (<10.0) mg/L Albumin 3.2 L (3.5-5.0) g/dL 08/25/19 08/25/19 Range/Units 07:12 11:24 MCV (80.0-100.0) fL MCH (25.0-35.0) pg Lymphocytes # (1.0-4.8) k/uL D-Dimer 3.00 H (<0.60) mg/L FEU BUN (9-20) mg/dL Glucose (74-99) mg/dL POC Glucose (mg/dL) 185 H (75-99) mg/dL Calcium (8.4-10.2) mg/dL Ferritin (22.0-322.0) ng/mL AST (17-59) U/L ALT (4-49) U/L Creatine Kinase (55-170) U/L C-Reactive Protein (<10.0) mg/L Albumin (3.5-5.0) g/dL Assessment and Plan Assessment: Bilateral pneumonia due to COVID-19 infection, acute hypoxic respiratory failure -Completed course of hydroxychloroquine -Limit fluids -Supportive care -stop doxy, continues to be on Rocephin as per Pulmonology -Limit IV fluids - D-Dimer elevated to 3.00 today, currently on Heparin, consider therapeutic ant icoagulation -Follow d-dimer, ferritin, LDH, CPK, and CRP (liver enzymes are improved today, LDH slight improvement, CPK slightly improved, CRP improved) Prerenal azotemia - BUN 26 Creatinine within normal limits. Encourage hydration by mouth and avoid nephrotoxins. Repeat BMP tomorrow. Transaminitis due to above - continue to monitor Thrombocytopenia, suspect reactive -Follow CBC Hypertension -Continue with metoprolol and ARB -Follow blood pressures Dyslipidemia -Continue statin therapy
[2019-08-25 16:39] LABS: Glucose,Whole Blood 153 mg/dL (75-99)
[2019-08-25 20:19] LABS: Glucose,Whole Blood 166 mg/dL (75-99)
[2019-08-25] MEDS: ATORVASTATIN 40 MG TAB PO SCH (21:27)
[2019-08-26] MEDS: SODIUM CHLORIDE 0.9% 1,000 ML IV SCH (05:47)
[2019-08-26 06:51] LABS: Glucose,Whole Blood 144 mg/dL (75-99)
[2019-08-26] MEDS: LOSARTAN 50 MG TAB PO SCH (07:14)
[2019-08-26] MEDS: ALLOPURINOL 100 MG TAB PO SCH (07:14)
[2019-08-26] MEDS: METOPROLOL TARTRATE 25 MG TAB PO SCH ×2 (07:14→20:10)
[2019-08-26] MEDS: INSULIN ASPART (NovoLOG) 100 UNIT/ML VIAL SQ SCH ×4 (07:15→20:10)
[2019-08-26] MEDS: ASPIRIN 81 MG PO SCH (07:15)
[2019-08-26] MEDS: methylPREDNISolone SOD SUCCI 40 MG/ML 1 ML VIAL IV SCH ×2 (07:15→20:10)
[2019-08-26] MEDS: HEPARIN SODIUM,PORCINE 5,000 UNIT/ML 1 ML VIAL SQ SCH ×2 (07:15→17:01)
[2019-08-26] MEDS: ZINC SULFATE 220 MG CAP PO SCH (07:16)
--- NOTE | 2019-08-26 07:24 | XR ---
EXAMINATION TYPE: XR chest 1V portable DATE OF EXAM: 08/26/2019 HISTORY: Shortness of breath. COMPARISON: 08/25/2019 TECHNIQUE: Single view of the chest is submitted. FINDINGS: Demonstrated are scattered senescent parenchymal change. Scattered interstitial and alveolar infiltrates persist without significant interval change. The heart is stable. Hilar and mediastinal structures are within normal limits. Degenerative changes are seen of the dorsal spine. IMPRESSION: 1. Scattered interstitial and alveolar infiltrates persist without significant interval change.
[2019-08-26 10:56] LABS: Ferritin 2476.7 ng/mL (22.0-322.0)
[2019-08-26 11:46] LABS: Glucose,Whole Blood 192 mg/dL (75-99)
--- NOTE | 2019-08-26 12:13 | P.PN ---
Subjective Progress Note Date: 08/26/19 Principal diagnosis: Acute CoVID 19 pneumonitis This is an 83-year-old white male who was transferred actually 4 days ago to our facility from [facility], patient was admitted initially with 1 week history of abdominal pain, and his pain was associated with cough, no diarrhea no nausea no vomiting. Patient also had fevers and chills, and dry cough. Apparently while at [facility], patient tested positive for covid 19, patient was treated with hydroxychloroquine, he also received Rocephin and doxycycline. Patient was transferred to our facility a few days ago, however his chest x-ray is showing significant worsening of his pneumonitis. And his O2 requirement has gone up over the last 4 days from 2 L to 11 L high flow nasal cannula. I evaluated the patient on the medical floor, patient did not seem to be in distress, however he is on a high flow nasal cannula, and his chest x-ray is concerning. Significantly worse over the last few days. Hence I recommended transferring the patient to the intensive care unit. In the meantime I have placed orders to address his pneumonitis. The patient himself is an extremely poor historian, hard of hearing, and could not answer any question I have asked him. Patient was reevaluated today on 08/21/19, patient is a positive covid 19 pneumonitis patient, with increased inflammatory markers, remains on high flow nasal cannula at 15 L/m, he seems to be in no form of distress, O2 saturation is marginal in the low 90s presently 92%. Patient has 0.9 normal saline at KVO, chest x-ray is showing slight improvement. Remains in normal sinus rhythm at 90 beats per minutes. On physical examination he has crackles at the bases. WBC count is 5.8 hemoglobin is 13.2 d-dimer is 0.89 slightly elevated. Ferritin is over 4400, continues to rise. LDH is rising now 2879 and C-reactive protein is rising at 166.0. Surprisingly, the patient does not seem to be in any distress, and he is relatively asymptomatic except for occasional cough. Reevaluated today on 08/22/19, patient remains in the ICU, he is on a high flow nasal cannula, and O2 saturation is in the low 90s, ranging between 89-93%. However clinically the patient is basically asymptomatic, he is afebrile, he is in normal sinus rhythm, chest x-ray shows diffuse interstitial infiltrates bilaterally. Lasix was given again today 40 mg IV push. And he was given Lasix yesterday. Again the patient is basically asymptomatic in spite of of his chest x-ray appearance and in spite of marginal O2 saturation. Electrolytes are normal, renal profile is normal liver enzymes are a bit elevated with AST of 283 ALT of 266 LDH is 2397 slightly better compared to yesterday. C-reactive protein is 84 improved compared to yesterday. CBC is relatively normal Reevaluated today on 08/23/19, patient remains on the high flow nasal cannula, remains in the ICU, and overall status is marginal at best. Patient is relatively asymptomatic. Hemodynamically stable, O2 saturation is up-to-date to 97% on 9 L high flow nasal cannula, and we cut down the high flow to 6 L. Chest x-ray continues to show diffuse bilateral infiltrates consistent with coronal v irus pneumonitis. Inflammatory markers were reviewed, LDH is 06/15/2007, ferritin is 5126, and C-reactive protein is 46. Basic metabolic profile is normal, CBC is relatively normal. The patient is seen today 08/24/2019 in follow-up on the regular medical floor. He is currently awake and alert in no acute distress. He is still requiring 15 L high flow nasal cannula to maintain O2 saturations in the 90s. He is currently afebrile. Hemodynamically stable. Blood culture reveals no growth. White count 7.4. Hemoglobin 13.1. Creatinine 0.76. AST 143. ALT 272. Creatinine kinase to 46. C-reactive protein 25. He is continued on ceftriaxone, IV Solu-Medrol, zinc. He has completed his course of Plaquenil. The patient is seen today 08/25/2019 in follow-up on the regular medical floor. He is currently resting comfortably in bed. States he is breathing a bit easier today compared to yesterday. Still requiring 11 L high flow nasal cannula to maintain O2 saturations in the 90s. He's been afebrile. Hemodynamically stable. Blood culture reveals no growth. White count 7.4. Hemoglobin 13.4. Platelets 270. Sodium 137. Potassium 4.5. Creatinine 0.72. AST 92. ALT 219 CK 238 C-reactive protein 16.6. D-dimer 3.00. He is currently on heparin for DVT prophylaxis. Remains on ceftriaxone, IV Solu-Medrol, zinc. The patient was seen and evaluated today 08/26/2019 in follow-up on the regular medical floor. He is currently sitting up in bed and appears comfortable. Remains afebrile. Currently on 11 L high flow nasal cannula with oxygen saturation 96%. Vital signs remained stable. Denies any pain or worsening shortness of breath. Detrol more 2.77 today which is down from yesterday. No other labs drawn today. Chest x-ray reveals scattered interstitial and alveolar infiltrates persisted without significant interval change. Remains on IV ceftriaxone and Solu-Medrol. Objective - Vital Signs Vital signs: Vital Signs Temp 98.1 F 08/26/19 11:00 Pulse 64 08/26/19 11:00 Resp 16 08/26/19 11:00 BP 158/78 08/26/19 11:00 Pulse Ox 96 08/26/19 11:00 Intake & Output 08/25/19 08/26/19 08/26/19 18:59 06:59 18:59 Output Total 1000 Balance -1000 Output: Urine 1000 Other: Voiding Method Toilet Urinal # Voids 1 1 - Constitutional Constitutional Comment(s): Sitting up in bed, appears comfortable General appearance: Present: cooperative, no acute distress, obese - Respiratory Details: Lungs sounds diminished bilaterally, diffuse crackles bilaterally. Respirations even, nonlabored. Currently on 11 L high flow nasal cannula with oxygen saturation 96%. - Cardiovascular Details: S1, S2 present. Regular rate and rhythm. Palpable peripheral pulses bilaterally. No edema present. No calf pain or tenderness noted - Gastrointestinal Gastrointestinal Comment(s): Abdomen soft, nontender, nondistended. No organomegaly present. Active bowel sounds present 4 quadrants. Tolerating diet. - Genitourinary Genitourinary Comment(s): Continues to void - Integumentary Integumentary Comment(s): Skin is warm and dry with evidence of good perfusion - Neurologic Neurologic: Present: CNII-XII intact - Musculoskeletal Musculoskeletal: Present: strength equal bilaterally - Psychiatric Psychiatric: Present: A&O x's 3, appropriate affect, intact judgment & insight - Allied health notes Allied health notes reviewed: nursing - Labs CBC & Chem 7: 08/25/19 07:12 04/12/20 07:12 Labs: Abnormal Lab Results - Last 24 Hours (Table) 08/25/19 08/25/19 08/25/19 Range/Units 07:12 16:36 20:17 D-Dimer (<0.60) mg/L FEU POC Glucose (mg/dL) 153 H 166 H (75-99) mg/dL Ferritin 2476.7 H (22.0-322.0) ng/mL 08/26/19 08/26/19 08/26/19 Range/Units 06:50 06:50 11:42 D-Dimer 2.77 H (<0.60) mg/L FEU POC Glucose (mg/dL) 144 H 192 H (75-99) mg/dL Ferritin (22.0-322.0) ng/mL - Imaging and Cardiology Chest x-ray: report reviewed, image reviewed Assessment and Plan Assessment: Acute hypoxic respiratory failure secondary to severe pneumonitis secondary to Covid 19 Benign essential hypertension Elevated liver enzymes secondary to covid 19 infection, trending down Elevated inflammatory markers for covid 19 pneumonitis, trending down Plan: The patient was seen and evaluated by Dr. Lynne Currently down to 11 L high flow nasal cannula and holding there Chest x-ray continues to show bilateral infiltrates Continue ceftriaxone, steroids, zinc. Covid 19 markers trending down. D-dimer down to 2.77 Continue heparin for DVT prophylaxis Completed course of hydroxychloroquine Overall prognosis guarded We will continue to follow and make further recommendations based on his clinica l status. I, the cosigning physician, performed a history & physical examination of the patient. Lungs sounds are diminished bilaterally with diffuse crackles. Maintaining good O2 saturations in the 90s on 11 L high flow nasal cannula. I discussed the assessment and plan of care with my nurse practitioner, Juliet Solares. I attest to the above note as dictated by her. Time with Patient: Greater than 30
--- NOTE | 2019-08-26 12:47 | P.PN ---
Subjective Progress Note Date: 08/26/19 Principal diagnosis: Patient is an 83-year-old Bangladeshi male with a past medical history of hypertension controlled with medication, gout, and dyslipidemia who presented to [facility] with a one-week history of right upper quadrant pain and coughing. He was transferred here as part of the Covnj relief process. He underwent a CT of the chest which showed patchy opacities bilaterally. He was started on Doxy and hydroxychloroquine. He had fevers up to 101.9 on the night of admission. Laboratory analysis showed lymphopenia, hyponatremia, elevated ferritin, AST 72, LDH 882, CPK 654, and CRP 32.4. Pro-calcitonin was negative. Influenza A and B were negative. Chest x-ray showed bilateral interstitial infiltrates in the lower lobes. He underwent an abdominal ultrasound which was nonacute. He continued to spike fevers after admission with a T-max of 100.5 on 08/17/2019. Patient completed his course of hydroxychloroquine. He was initially on 2 L nasal cannula but by 08/21/2019 he was requiring 15 L high flow to maintain O2 saturation in the low 90s. Pulmonology recommended transfer to ICU for closer monitoring. He continues to require 8-15L high flow oxygen to maintain adequate oxygenation and is low threshold for intubation. Patient seen and examined at bedside, currently on 11 L high flow by nasal cannula with saturations 90-96%. Scattered interstitial and and revealed her infiltrates persist without significant interval change. No acute events overnight Objective - Vital Signs Vital signs: Vital Signs Temp 98.1 F 08/26/19 11:00 Pulse 64 08/26/19 11:00 Resp 16 08/26/19 11:00 BP 158/78 08/26/19 11:00 Pulse Ox 96 08/26/19 11:00 Intake & Output 08/25/19 08/26/19 08/26/19 18:59 06:59 18:59 Output Total 1000 Balance -1000 Output: Urine 1000 Other: Voiding Method Toilet Urinal # Voids 1 1 - Exam Constitutional: No acute distress, conversant, pleasant Eyes: Anicteric sclerae, moist conjunctiva, no lid-lag, PERRLA ENMT: NC/AT,Oropharynx clear, no erythema, exudates Neck:Supple, FROM, no masses, or JVD, No carotid bruits; No thyromegaly Lungs: Diminished in the bases bilaterally with some crackles, unlabored currently on 11 L high flow via nasal Cardiovascular: Heart regular in rate and rhythm, No murmurs, gallops, or rubs no peripheral edema Abdominal: Soft Nontender, nom distended, no guarding, no rebound or rigidity, Normoactive bowel sounds No hepatomegaly, No splenomegaly, No palpable mass No abdominal wall hernia noted Skin: Normal temperature, tone, texture, turgor, No induration No subcutaneous nodules, No rash, lesions, No ulcers Extremities:No digital cyanosis No clubbing, Pedal pulses intact and symmetrical Radial pulses intact and symmetrical Normal gait and station, No calf tenderness Psychiatric: Alert and oriented to person, place and time, Appropriate affect Intact judgement Neuro: Muscles Strength 5/5 in all 4 extremities, Sensation to light touch grossly present throughout, Cranial nerves II-XII grossly intact. No focal sensory deficits - Labs CBC & Chem 7: 08/25/19 07:12 08/25/19 07:12 Labs: Abnormal Lab Results - Last 24 Hours (Table) 08/25/19 08/25/19 08/25/19 Range/Units 07:12 16:36 20:17 D-Dimer (<0.60) mg/L FEU POC Glucose (mg/dL) 153 H 166 H (75-99) mg/dL Ferritin 2476.7 H (22.0-322.0) ng/mL 08/26/19 08/26/19 08/26/19 Range/Units 06:50 06:50 11:42 D-Dimer 2.77 H (<0.60) mg/L FEU POC Glucose (mg/dL) 144 H 192 H (75-99) mg/dL Ferritin (22.0-322.0) ng/mL Assessment and Plan Assessment: Bilateral pneumonia due to COVID-19 infection, acute hypoxic respiratory failure -Completed course of hydroxychloroquine -Limit fluids -Supportive care -stop doxy, continues to be on Rocephin as per Pulmonology -Limit IV fluids - D-Dimer elevated to 3.00 today, currently on Heparin, consider therapeutic anticoagulation -Follow d-dimer, ferritin, LDH, CPK, and CRP (liver enzymes are improved today, LDH slight improvement, CPK slightly improved, CRP improved) Prerenal azotemia - BUN 26 Creatinine within normal limits. Encourage hydration by mouth and avoid nephrotoxins. Repeat BMP tomorrow. Transaminitis due to above - continue to monitor Thrombocytopenia, suspect reactive -Follow CBC Hypertension -Continue with metoprolol and ARB -Follow blood pressures Dyslipidemia -Continue statin therapy Disposition * Continue current management
[2019-08-26 16:51] LABS: Glucose,Whole Blood 171 mg/dL (75-99)
[2019-08-26 20:06] LABS: Glucose,Whole Blood 154 mg/dL (75-99)
[2019-08-26] MEDS: ATORVASTATIN 40 MG TAB PO SCH (20:10)
[2019-08-27] MEDS: HEPARIN SODIUM,PORCINE 5,000 UNIT/ML 1 ML VIAL SQ SCH ×2 (00:15→07:04)
[2019-08-27] MEDS: SODIUM CHLORIDE 0.9% 1,000 ML IV SCH (05:48)
[2019-08-27 06:52] LABS: Glucose,Whole Blood 143 mg/dL (75-99)
[2019-08-27] MEDS: ASPIRIN 81 MG PO SCH (07:01)
[2019-08-27] MEDS: METOPROLOL TARTRATE 25 MG TAB PO SCH ×2 (07:01→20:33)
[2019-08-27] MEDS: LOSARTAN 50 MG TAB PO SCH (07:01)
[2019-08-27] MEDS: ALLOPURINOL 100 MG TAB PO SCH (07:01)
[2019-08-27] MEDS: ZINC SULFATE 220 MG CAP PO SCH (07:03)
[2019-08-27] MEDS: methylPREDNISolone SOD SUCCI 40 MG/ML 1 ML VIAL IV SCH ×2 (07:04→20:33)
[2019-08-27] MEDS: INSULIN ASPART (NovoLOG) 100 UNIT/ML VIAL SQ SCH ×4 (07:04→20:40)
--- NOTE | 2019-08-27 07:48 | XR ---
EXAMINATION TYPE: XR chest 1V portable DATE OF EXAM: 08/27/2019 COMPARISON: 08/26/2019 HISTORY: Follow-up TECHNIQUE: Single frontal view of the chest is obtained. FINDINGS: Heart is enlarged and there is multifocal areas of consolidation. Arthropathy shoulders. N o pneumothorax. Tiny bilateral effusion suspected. IMPRESSION: Stable multifocal infiltrates.
--- NOTE | 2019-08-27 11:22 | P.PN ---
Subjective Progress Note Date: 08/27/19 Principal diagnosis: Acute COVID 19 pneumonia This is an 83-year-old white male who was transferred actually 4 days ago to our facility from [facility], patient was admitted initially with 1 week history of abdominal pain, and his pain was associated with cough, no diarrhea no nausea no vomiting. Patient also had fevers and chills, and dry cough. Apparently while at [facility], patient tested positive for covid 19, patient was treated with hydroxychloroquine, he also received Rocephin and doxycycline. Patient was transferred to our facility a few days ago, however his chest x-ray is showing significant worsening of his pneumonitis. And his O2 requirement has gone up over the last 4 days from 2 L to 11 L high flow nasal cannula. I evaluated the patient on the medical floor, patient did not seem to be in distress, however he is on a high flow nasal cannula, and his chest x-ray is concerning. Significantly worse over the last few days. Hence I recommended transferring the patient to the intensive care unit. In the meantime I have placed orders to address his pneumonitis. The patient himself is an extremely poor historian, hard of hearing, and could not answer any question I have asked him. Patient was reevaluated today on 08/21/19, patient is a positive covid 19 pneumonitis patient, with increased inflammatory markers, remains on high flow nasal cannula at 15 L/m, he seems to be in no form of distress, O2 saturation is marginal in the low 90s presently 92%. Patient has 0.9 normal saline at KVO, chest x-ray is showing slight improvement. Remains in normal sinus rhythm at 90 beats per minutes. On physical examination he has crackles at the bases. WBC count is 5.8 hemoglobin is 13.2 d-dimer is 0.89 slightly elevated. Ferritin is over 4400, continues to rise. LDH is rising now 2879 and C-reactive protein is rising at 166.0. Surprisingly, the patient does not seem to be in any distress, and he is relatively asymptomatic except for occasional cough. Reevaluated today on 08/22/19, patient remains in the ICU, he is on a high flow nasal cannula, and O2 saturation is in the low 90s, ranging between 89-93%. However clinically the patient is basically asymptomatic, he is afebrile, he is in normal sinus rhythm, chest x-ray shows diffuse interstitial infiltrates bilaterally. Lasix was given again today 40 mg IV push. And he was given Lasix yesterday. Again the patient is basically asymptomatic in spite of of his chest x-ray appearance and in spite of marginal O2 saturation. Electrolytes are normal, renal profile is normal liver enzymes are a bit elevated with AST of 283 ALT of 266 LDH is 2397 slightly better compared to yesterday. C-reactive protein is 84 improved compared to yesterday. CBC is relatively normal Reevaluated today on 08/23/19, patient remains on the high flow nasal cannula, remains in the ICU, and overall status is marginal at best. Patient is relatively asymptomatic. Hemodynamically stable, O2 saturation is up-to-date to 97% on 9 L high flow nasal cannula, and we cut down the high flow to 6 L. Chest x-ray continues to show diffuse bilateral infiltrates consistent with coronal virus pneumonitis. Inflammatory markers were reviewed, LDH is 06/15/2007, ferritin is 5126, and C-reactive protein is 46. Basic metabolic profile is normal, CBC is relatively normal. The patient is seen today 08/24/2019 in follow-up on the regular medical floor. He is currently awake and alert in no acute distress. He is still requiring 15 L high flow nasal cannula to maintain O2 saturations in the 90s. He is currently afebrile. Hemodynamically stable. Blood culture reveals no growth. White count 7.4. Hemoglobin 13.1. Creatinine 0.76. AST 143. ALT 272. Creatinine kinase to 46. C-reactive protein 25. He is continued on ceftriaxone, IV Solu-Medrol, zinc. He has completed his course of Plaquenil. The patient is seen today 08/25/2019 in follow-up on the regular medical floor. He is currently resting comfortably in bed. States he is breathing a bit easier today compared to yesterday. Still requiring 11 L high flow nasal cannula to maintain O2 saturations in the 90s. He's been afebrile. Hemodynamically stable. Blood culture reveals no growth. White count 7.4. Hemoglobin 13.4. Platelets 270. Sodium 137. Potassium 4.5. Creatinine 0.72. AST 92. ALT 219 CK 238 C-reactive protein 16.6. D-dimer 3.00. He is currently on heparin for DVT prophylaxis. Remains on ceftriaxone, IV Solu-Medrol, zinc. On 08/27/2019 patient seen in follow-up on a general medical floor, he is resting comfortably in bed, no signs of any respiratory distress, FiO2 is down to 7 L on today's exam, his pulse ox is 91%, denies any cough, or chest pain, no fever hemodynamically he is stable, follow-up chest x-ray was obtained today showing stable multifocal infiltrates. No new labs today. Patient has completed a course of Plaquenil, he is completing his course of IV antibiotics in the form of Rocephin, and he remains on IV Solu-Medrol at 60 mg every 6 hours. Objective - Vital Signs Vital signs: Vital Signs Temp 97.6 F 08/27/19 06:56 Pulse 65 08/27/19 06:56 Resp 18 08/27/19 07:00 BP 158/73 08/27/19 06:56 Pulse Ox 91 L 08/27/19 06:56 Intake & Output 08/26/19 08/27/19 08/27/19 18:59 06:59 18:59 Output Total 450 700 Balance -450 -700 Weight 82.1 kg Output: Urine 450 700 Other: Voiding Method Toilet Urinal Urinal Urinal - Exam GENERAL EXAM: Alert, very pleasant, 83-year-old male currently on 7 L of oxygen with pulse ox of 91% comfortable in no apparent distress. HEAD: Normocephalic/atraumatic. EYES: Normal reaction of pupils, equal size. Conjunctiva pink, sclera white. NOSE: Clear with pink turbinates. THROAT: No erythema or exudates. NECK: No masses, no JVD, no thyroid enlargement, no adenopathy. CHEST: No chest wall deformity. Symmetrical expansion. LUNGS: Equal air entry with no crackles, wheeze, rhonchi or dullness. CVS: Regular rate and rhythm, normal S1 and S2, no gallops, no murmurs, no rubs ABDOMEN: Soft, nontender. No hepatosplenomegaly, normal bowel sounds, no guarding or rigidity. EXTREMITIES: No clubbing, no edema, no cyanosis, 2+ pulses and upper and lower extremities. MUSCULOSKELETAL: Muscle strength and tone normal. SPINE: No scoliosis or deformity SKIN: No rashes CENTRAL NERVOUS SYSTEM: Alert and oriented -3. No focal deficits, tone is normal in all 4 extremities. PSYCHIATRIC: Alert and oriented -3. Appropriate affect. Intact judgment and insight. - Labs CBC & Chem 7: 08/25/19 07:12 08/25/19 07:12 Labs: Abnormal Lab Results - Last 24 Hours (Table) 08/26/19 08/26/19 08/26/19 Range/Units 11:42 16:48 20:04 POC Glucose (mg/dL) 192 H 171 H 154 H (75-99) mg/dL 08/27/19 Range/Units 06:51 POC Glucose (mg/dL) 143 H (75-99) mg/dL Assessment and Plan Plan: Assessment: #1. Acute hypoxic respiratory failure secondary to severe pneumonitis secondary to Covid 19 infection #2. Elevated liver enzymes, d-dimer, and elevated inflammatory markers, trending down, related to Covid 19 infection #3. Benign essential hypertension Plan: Continue current medical treatment, patient has completed Plaquenil, remains on antibiotics and IV steroids, FiO2 is being weaned down, but patient is still requiring high amount of oxygen at 7 L per high flow nasal cannula, clinically she looks comfortable, no worsening dyspnea. We will obtain follow-up lab work tomorrow, we'll increase Lovenox to therapeutic dose at 80 mg subcu twice daily in view of his significantly elevated d-dimer. We'll continue to follow I performed a history & physical examination of the patient and discussed their management with my nurse practitioner, Shayna Britton. I reviewed the nurse practitioner's note and agree with the documented findings and plan of care. Lung sounds are positive for diminished breath sounds at the bases. The findings and the impression was discussed with the patient. I attest to the documentation by the nurse practitioner. Time with Patient: Less than 30
[2019-08-27 11:54] LABS: Glucose,Whole Blood 143 mg/dL (75-99)
[2019-08-27 17:11] LABS: Glucose,Whole Blood 162 mg/dL (75-99)
--- NOTE | 2019-08-27 17:11 | P.PN ---
Subjective Progress Note Date: 08/27/19 Principal diagnosis: Patient is an 83-year-old [place] male with a past medical history of hypertension controlled with medication, gout, and dyslipidemia who presented to [facility] with a one-week history of right upper quadrant pain and coughing. He was transferred here as part of the Covde relief process. He underwent a CT of the chest which showed patchy opacities bilaterally. He was started on Doxy and hydroxychloroquine. He had fevers up to 101.9 on the night of admission. Laboratory analysis showed lymphopenia, hyponatremia, elevated ferritin, AST 72, LDH 882, CPK 654, and CRP 32.4. Pro-calcitonin was negative. Influenza A and B were negative. Chest x-ray showed bilateral interstitial infiltrates in the lower lobes. He underwent an abdominal ultrasound which was nonacute. He continued to spike fevers after admission with a T-max of 100.5 on 08/17/2019. Patient completed his course of hydroxychloroquine. He was initially on 2 L nasal cannula but by 08/21/2019 he was requiring 15 L high flow to maintain O2 saturation in the low 90s. Pulmonology recommended transfer to ICU for closer monitoring. He continues to require 8-15L high flow oxygen to maintain adequate oxygenation and is low threshold for intubation. Patient is seen examined at bedside is been weaned down to 7 L via nasal cannula with saturations of 93%, reports that he's feeling much better today. Patient afebrile Objective - Vital Signs Vital signs: Vital Signs Temp 97.8 F 08/27/19 15:00 Pulse 72 08/27/19 15:00 Resp 18 08/27/19 15:00 BP 129/69 08/27/19 15:00 Pulse Ox 93 L 08/27/19 15:00 Intake & Output 08/26/19 08/27/19 08/27/19 18:59 06:59 18:59 Output Total 450 700 400 Balance -450 -700 -400 Weight 82.1 kg Output: Urine 450 700 400 Other: Voiding Method Toilet Urinal Urinal Urinal - Exam Constitutional: No acute distress, conversant, pleasant Eyes: Anicteric sclerae, moist conjunctiva, no lid-lag, PERRLA ENMT: NC/AT,Oropharynx clear, no erythema, exudates Neck:Supple, FROM, no masses, or JVD, No carotid bruits; No thyromegaly Lungs: Diminished in the bases bilaterally with some crackles, unlabored currently on 11 L high flow via nasal Cardiovascular: Heart regular in rate and rhythm, No murmurs, gallops, or rubs no peripheral edema Abdominal: Soft Nontender, nom distended, no guarding, no rebound or rigidity, Normoactive bowel sounds No hepatomegaly, No splenomegaly, No palpable mass No abdominal wall hernia noted Skin: Normal temperature, tone, texture, turgor, No induration No subcutaneous nodules, No rash, lesions, No ulcers Extremities:No digital cyanosis No clubbing, Pedal pulses intact and symmetrical Radial pulses intact and symmetrical Normal gait and station, No calf tenderness Psychiatric: Alert and oriented to person, place and time, Appropriate affect In tact judgement Neuro: Muscles Strength 5/5 in all 4 extremities, Sensation to light touch grossly present throughout, Cranial nerves II-XII grossly intact. No focal sensory deficits - Labs CBC & Chem 7: 08/25/19 07:12 08/25/19 07:12 Labs: Abnormal Lab Results - Last 24 Hours (Table) 08/26/19 08/27/19 08/27/19 Range/Units 20:04 06:51 11:52 POC Glucose (mg/dL) 154 H 143 H 143 H (75-99) mg/dL Assessment and Plan Assessment: Bilateral pneumonia due to COVID-19 infection, acute hypoxic respiratory failure -Completed course of hydroxychloroquine -Limit fluids -Supportive care -stop doxy, continues to be on Rocephin as per Pulmonology -Limit IV fluids - D-Dimer elevated to 3.00 today, currently on Heparin, consider therapeutic anticoagulation -Follow d-dimer, ferritin, LDH, CPK, and CRP (liver enzymes are improved today, LDH slight improvement, CPK slightly improved, CRP improved) Prerenal azotemia - BUN 26 Creatinine within normal limits. Encourage hydration by mouth and avoid nephrotoxins. Repeat BMP tomorrow. Transaminitis due to above - continue to monitor Thrombocytopenia, suspect reactive -Follow CBC Hypertension -Continue with metoprolol and ARB -Follow blood pressures Dyslipidemia -Continue statin therapy Disposition * Continue current management
[2019-08-27 20:08] LABS: Glucose,Whole Blood 134 mg/dL (75-99)
[2019-08-27] MEDS: ATORVASTATIN 40 MG TAB PO SCH (20:33)
[2019-08-27] MEDS: ENOXAPARIN 80 MG/0.8 ML SYRINGE SQ SCH (20:33)
[2019-08-28] MEDS: SODIUM CHLORIDE 0.9% 1,000 ML IV SCH (03:50)
[2019-08-28 06:58] LABS: Glucose,Whole Blood 135 mg/dL (75-99)
[2019-08-28] MEDS: METOPROLOL TARTRATE 25 MG TAB PO SCH ×2 (07:21→20:47)
[2019-08-28] MEDS: INSULIN ASPART (NovoLOG) 100 UNIT/ML VIAL SQ SCH ×4 (07:21→20:47)
[2019-08-28] MEDS: LOSARTAN 50 MG TAB PO SCH (07:21)
[2019-08-28] MEDS: methylPREDNISolone SOD SUCCI 40 MG/ML 1 ML VIAL IV SCH (07:22)
[2019-08-28] MEDS: ZINC SULFATE 220 MG CAP PO SCH (07:22)
[2019-08-28] MEDS: ALLOPURINOL 100 MG TAB PO SCH (07:22)
[2019-08-28] MEDS: ENOXAPARIN 80 MG/0.8 ML SYRINGE SQ SCH (07:22)
[2019-08-28] MEDS: ASPIRIN 81 MG PO SCH (07:22)
[2019-08-28 08:25] LABS: LDH 1374 U/L (313-618)
[2019-08-28 09:55] LABS: C Reactive Protein <5.0 mg/L (<10.0)
--- NOTE | 2019-08-28 10:49 | P.PN ---
Subjective Progress Note Date: 08/28/19 Principal diagnosis: Patient is an 83-year-old [place] male with a past medical history of hypertension controlled with medication, gout, and dyslipidemia who presented to [facility] with a one-week history of right upper quadrant pain and coughing. He was transferred here as part of the Covca relief process. He underwent a CT of the chest which showed patchy opacities bilaterally. He was started on Doxy and hydroxychloroquine. He had fevers up to 101.9 on the night of admission. Laboratory analysis showed lymphopenia, hyponatremia, elevated ferritin, AST 72, LDH 882, CPK 654, and CRP 32.4. Pro-calcitonin was negative. Influenza A and B were negative. Chest x-ray showed bilateral interstitial infiltrates in the lower lobes. He underwent an abdominal ultrasound which was nonacute. He continued to spike fevers after admission with a T-max of 100.5 on 08/17/2019. Patient completed his course of hydroxychloroquine. He was initially on 2 L nasal cannula but by 08/21/2019 he was requiring 15 L high flow to maintain O2 saturation in the low 90s. He was started on empiric IV antibiotics with Rocephin and also started on steroids. Pulmonology recommended transfer to ICU for closer monitoring where he did well and was eventually downgraded and was gradually weaned from 15 L down to 6 L Patient is seen examined at bedside is been weaned down to 4 L at rest but while working was physical therapy the patient desatted to 82% while on 4 L and his oxygen was increased to 7 L bring him back up to 93%. Objective - Vital Signs Vital signs: Vital Signs Temp 97.8 F 08/28/19 07:00 Pulse 73 08/28/19 07:00 Resp 17 08/28/19 07:00 BP 146/75 08/28/19 07:00 Pulse Ox 90 L 08/28/19 07:00 Intake & Output 08/27/19 08/28/19 08/28/19 18:59 06:59 18:59 Intake Total 120 Output Total 400 300 Balance -400 -300 120 Intake: Oral 120 Output: Urine 400 300 Other: Voiding Method Urinal Urinal # Voids 1 - Exam Constitutional: No acute distress, conversant, pleasant Eyes: Anicteric sclerae, moist conjunctiva, no lid-lag, PERRLA ENMT: NC/AT,Oropharynx clear, no erythema, exudates Neck:Supple, FROM, no masses, or JVD, No carotid bruits; No thyromegaly Lungs: Diminished in the bases bilaterally with some crackles, unlabored currently on 4 L Cardiovascular: Heart regular in rate and rhythm, No murmurs, gallops, or rubs no peripheral edema Abdominal: Soft Nontender, nom distended, no guarding, no rebound or rigidity, Normoactive bowel sounds No hepatomegaly, No splenomegaly, No palpable mass No abdominal wall hernia noted Skin: Normal temperature, tone, texture, turgor, No induration No subcutaneous nodules, No rash, lesions, No ulcers Extremities:No digital cyanosis No clubbing, Pedal pulses intact and symmetrical Radial pulses intact and symmetrical Normal gait and station, No calf tenderness Psychiatric: Alert and oriented to person, place and time, Appropriate affect Intact judgement Neuro: Muscles Strength 5/5 in all 4 extremities, Sensation to light touch grossly present throughout, Cranial nerves II-XII grossly intact. No focal sensory deficits - Labs CBC & Chem 7: 08/25/19 07:12 08/25/19 07:12 Labs: Abnormal Lab Results - Last 24 Hours (Table) 08/27/19 08/27/19 08/27/19 Range/Units 11:52 17:09 20:07 D-Dimer (<0.60) mg/L FEU POC Glucose (mg/dL) 143 H 162 H 134 H (75-99) mg/dL Lactate Dehydrogenase (313-618) U/L 08/28/19 08/28/19 08/28/19 Range/Units 06:44 06:44 06:56 D-Dimer 1.95 H (<0.60) mg/L FEU POC Glucose (mg/dL) 135 H (75-99) mg/dL Lactate Dehydrogenase 1374 H (313-618) U/L Assessment and Plan Assessment: Bilateral pneumonia due to COVID-19 infection, acute hypoxic respiratory failure -Completed course of hydroxychloroquine -Limit fluids -Supportive care -stop doxy, discontinued off Rocephin -Limit IV fluids -Follow d-dimer, ferritin, LDH, CPK, and CRP (liver enzymes are improved today, LDH slight improvement, CPK slightly improved, CRP improved) Continue steroid taper Prerenal azotemia - BUN 26 Creatinine within normal limits. Encourage hydration by mouth and avoid nephrotoxins. Repeat BMP tomorrow. Transaminitis due to above - continue to monitor Thrombocytopenia, suspect reactive -Follow CBC Hypertension -Continue with metoprolol and ARB -Follow blood pressures Dyslipidemia -Continue statin therapy Disposition * Continue current management and working with PT * Patient desatted with exertion down to 83% on 4 L via nasal cannula.
[2019-08-28 12:13] LABS: Glucose,Whole Blood 280 mg/dL (75-99)
--- NOTE | 2019-08-28 13:37 | P.PN ---
Subjective Progress Note Date: 08/28/19 Principal diagnosis: Acute CoVID 19 pneumonitis This is an 83-year-old white male who was transferred actually 4 days ago to our facility from [facility], patient was admitted initially with 1 week history of abdominal pain, and his pain was associated with cough, no diarrhea no nausea no vomiting. Patient also had fevers and chills, and dry cough. Apparently while at [facility], patient tested positive for covid 19, patient was treated with hydroxychloroquine, he also received Rocephin and doxycycline. Patient was transferred to our facility a few days ago, however his chest x-ray is showing significant worsening of his pneumonitis. And his O2 requirement has gone up over the last 4 days from 2 L to 11 L high flow nasal cannula. I evaluated the patient on the medical floor, patient did not seem to be in distress, however he is on a high flow nasal cannula, and his chest x-ray is concerning. Significantly worse over the last few days. Hence I recommended transferring the patient to the intensive care unit. In the meantime I have placed orders to address his pneumonitis. The patient himself is an extremely poor historian, hard of hearing, and could not answer any question I have asked him. Patient was reevaluated today on 08/21/19, patient is a positive covid 19 pneumonitis patient, with increased inflammatory markers, remains on high flow nasal cannula at 15 L/m, he seems to be in no form of distress, O2 saturation is marginal in the low 90s presently 92%. Patient has 0.9 normal saline at KVO, chest x-ray is showing slight improvement. Remains in normal sinus rhythm at 90 beats per minutes. On physical examination he has crackles at the bases. WBC count is 5.8 hemoglobin is 13.2 d-dimer is 0.89 slightly elevated. Ferritin is over 4400, continues to rise. LDH is rising now 2879 and C-reactive protein is rising at 166.0. Surprisingly, the patient does not seem to be in any distress, and he is relatively asymptomatic except for occasional cough. Reevaluated today on 08/22/19, patient remains in the ICU, he is on a high flow nasal cannula, and O2 saturation is in the low 90s, ranging between 89-93%. However clinically the patient is basically asymptomatic, he is afebrile, he is in normal sinus rhythm, chest x-ray shows diffuse interstitial infiltrates bilaterally. Lasix was given again today 40 mg IV push. And he was given Lasix yesterday. Again the patient is basically asymptomatic in spite of of his chest x-ray appearance and in spite of marginal O2 saturation. Electrolytes are normal, renal profile is normal liver enzymes are a bit elevated with AST of 283 ALT of 266 LDH is 2397 slightly better compared to yesterday. C-reactive protein is 84 improved compared to yesterday. CBC is relatively normal Reevaluated today on 08/23/19, patient remains on the high flow nasal cannula, remains in the ICU, and overall status is marginal at best. Patient is relatively asymptomatic. Hemodynamically stable, O2 saturation is up-to-date to 97% on 9 L high flow nasal cannula, and we cut down the high flow to 6 L. Chest x-ray continues to show diffuse bilateral infiltrates consistent with coronal v irus pneumonitis. Inflammatory markers were reviewed, LDH is 06/15/2007, ferritin is 5126, and C-reactive protein is 46. Basic metabolic profile is normal, CBC is relatively normal. The patient is seen today 08/24/2019 in follow-up on the regular medical floor. He is currently awake and alert in no acute distress. He is still requiring 15 L high flow nasal cannula to maintain O2 saturations in the 90s. He is currently afebrile. Hemodynamically stable. Blood culture reveals no growth. White count 7.4. Hemoglobin 13.1. Creatinine 0.76. AST 143. ALT 272. Creatinine kinase to 46. C-reactive protein 25. He is continued on ceftriaxone, IV Solu-Medrol, zinc. He has completed his course of Plaquenil. The patient is seen today 08/25/2019 in follow-up on the regular medical floor. He is currently resting comfortably in bed. States he is breathing a bit easier today compared to yesterday. Still requiring 11 L high flow nasal cannula to maintain O2 saturations in the 90s. He's been afebrile. Hemodynamically stable. Blood culture reveals no growth. White count 7.4. Hemoglobin 13.4. Platelets 270. Sodium 137. Potassium 4.5. Creatinine 0.72. AST 92. ALT 219 CK 238 C-reactive protein 16.6. D-dimer 3.00. He is currently on heparin for DVT prophylaxis. Remains on ceftriaxone, IV Solu-Medrol, zinc. The patient was seen and evaluated today 08/26/2019 in follow-up on the regular medical floor. He is currently sitting up in bed and appears comfortable. Remains afebrile. Currently on 11 L high flow nasal cannula with oxygen saturation 96%. Vital signs remained stable. Denies any pain or worsening shortness of breath. Detrol more 2.77 today which is down from yesterday. No other labs drawn today. Chest x-ray reveals scattered interstitial and alveolar infiltrates persisted without significant interval change. Remains on IV ceftriaxone and Solu-Medrol. On 08/27/2019 patient seen in follow-up on a general medical floor, he is resting comfortably in bed, no signs of any respiratory distress, FiO2 is down to 7 L on today's exam, his pulse ox is 91%, denies any cough, or chest pain, no fever hemodynamically he is stable, follow-up chest x-ray was obtained today showing stable multifocal infiltrates. No new labs today. Patient has completed a course of Plaquenil, he is completing his course of IV antibiotics in the form of Rocephin, and he remains on IV Solu-Medrol at 60 mg every 6 hours. On 08/28/2019 the patient was seen in follow-up on the general medical floor with Dr. Lynne. He is sitting up in bed resting comfortably in no acute distress. He was on 4 L nasal cannula with oxygen saturation 90%. Remains afebrile. Hemodynamically stable. D-dimer, LDH, CRP trending down, otherwise no new labs or x-rays completed today. States he is feeling good and wants to go home. Objective - Vital Signs Vital signs: Vital Signs Temp 98.0 F 08/28/19 12:39 Pulse 71 08/28/19 12:39 Resp 18 08/28/19 12:39 BP 118/70 08/28/19 12:39 Pulse Ox 97 08/28/19 12:39 Intake & Output 08/27/19 08/28/19 08/28/19 18:59 06:59 18:59 Intake Total 120 Output Total 400 300 Balance -400 -300 120 Intake: Oral 120 Output: Urine 400 300 Other: Voiding Method Urinal Urinal # Voids 1 - Constitutional Constitutional Comment(s): Appears comfortable sitting up in bed General appearance: Present: cooperative, no acute distress - Respiratory Details: Lungs sounds diminished bilaterally. Respirations even, nonlabored. Currently on 4 L nasal cannula with oxygen saturation 90%. Strong, nonproductive cough. - Cardiovascular Details: S1, S2 present. Regular rate and rhythm. Palpable peripheral pulses bilaterally. No edema present. No calf pain or tenderness noted. - Gastrointestinal Gastrointestinal Comment(s): Abdomen soft, nontender, nondistended. No organomegaly present. Active bowel sounds present 4 quadrants. Tolerating diet. - Integumentary Integumentary Comment(s): Skin is warm and dry - Neurologic Neurologic: Present: CNII-XII intact - Musculoskeletal Musculoskeletal: Present: strength equal bilaterally - Psychiatric Psychiatric: Present: A&O x's 3, appropriate affect, intact judgment & insight - Allied health notes Allied health notes reviewed: nursing - Labs CBC & Chem 7: 08/25/19 07:12 08/25/19 07:12 Labs: Abnormal Lab Results - Last 24 Hours (Table) 08/27/19 08/27/19 08/28/19 Range/Units 17:09 20:07 06:44 D-Dimer 1.95 H (<0.60) mg/L FEU POC Glucose (mg/dL) 162 H 134 H (75-99) mg/dL Lactate Dehydrogenase (313-618) U/L 08/28/19 08/28/19 08/28/19 Range/Units 06:44 06:56 12:07 D-Dimer (<0.60) mg/L FEU POC Glucose (mg/dL) 135 H 280 H (75-99) mg/dL Lactate Dehydrogenase 1374 H (313-618) U/L Assessment and Plan Assessment: Acute hypoxic respiratory failure secondary to severe pneumonitis secondary to Covid 19 Benign essential hypertension Elevated liver enzymes secondary to covid 19 infection, trending down Elevated inflammatory markers for covid 19 pneumonitis, trending down Plan: The patient was seen and evaluated by Dr. Lynne Currently down to 4 L nasal cannula Change steroids to prednisone 20 mg by mouth daily DC Zinc, Lovenox Stable from pulmonary standpoint We will continue to follow and make further recommendations based on his clinical status. I, the cosigning physician, performed a history & physical examination of the patient. Lungs sounds are diminished bilaterally. Maintaining good O2 saturations in the 90s on 4 L nasal cannula. I discussed the assessment and plan of care with my nurse practitioner, Juliet Solares. I attest to the above note as dictated by her. Time with Patient: Greater than 30
[2019-08-28 17:13] LABS: Glucose,Whole Blood 167 mg/dL (75-99)
[2019-08-28 20:35] LABS: Glucose,Whole Blood 166 mg/dL (75-99)
[2019-08-28] MEDS: ATORVASTATIN 40 MG TAB PO SCH (20:47)
[2019-08-29] MEDS: INSULIN ASPART (NovoLOG) 100 UNIT/ML VIAL SQ SCH ×4 (07:10→20:57)
[2019-08-29 07:11] LABS: Glucose,Whole Blood 116 mg/dL (75-99)
[2019-08-29] MEDS: METOPROLOL TARTRATE 25 MG TAB PO SCH ×2 (07:27→20:58)
[2019-08-29] MEDS: LOSARTAN 50 MG TAB PO SCH (07:27)
[2019-08-29] MEDS: predniSONE 20 MG TAB PO SCH (07:27)
[2019-08-29] MEDS: ALLOPURINOL 100 MG TAB PO SCH (07:27)
[2019-08-29] MEDS: ASPIRIN 81 MG PO SCH (07:27)
--- NOTE | 2019-08-29 10:28 | P.PN ---
Subjective Progress Note Date: 08/29/19 Principal diagnosis: Acute CoVID 19 pneumonitis This is an 83-year-old white male who was transferred actually 4 days ago to our facility from [facility], patient was admitted initially with 1 week history of abdominal pain, and his pain was associated with cough, no diarrhea no nausea no vomiting. Patient also had fevers and chills, and dry cough. Apparently while at [facility], patient tested positive for covid 19, patient was treated with hydroxychloroquine, he also received Rocephin and doxycycline. Patient was transferred to our facility a few days ago, however his chest x-ray is showing significant worsening of his pneumonitis. And his O2 requirement has gone up over the last 4 days from 2 L to 11 L high flow nasal cannula. I evaluated the patient on the medical floor, patient did not seem to be in distress, however he is on a high flow nasal cannula, and his chest x-ray is concerning. Significantly worse over the last few days. Hence I recommended transferring the patient to the intensive care unit. In the meantime I have placed orders to address his pneumonitis. The patient himself is an extremely poor historian, hard of hearing, and could not answer any question I have asked him. Patient was reevaluated today on 08/21/19, patient is a positive covid 19 pneumonitis patient, with increased inflammatory markers, remains on high flow nasal cannula at 15 L/m, he seems to be in no form of distress, O2 saturation is marginal in the low 90s presently 92%. Patient has 0.9 normal saline at KVO, chest x-ray is showing slight improvement. Remains in normal sinus rhythm at 90 beats per minutes. On physical examination he has crackles at the bases. WBC count is 5.8 hemoglobin is 13.2 d-dimer is 0.89 slightly elevated. Ferritin is over 4400, continues to rise. LDH is rising now 2879 and C-reactive protein is rising at 166.0. Surprisingly, the patient does not seem to be in any distress, and he is relatively asymptomatic except for occasional cough. Reevaluated today on 08/22/19, patient remains in the ICU, he is on a high flow nasal cannula, and O2 saturation is in the low 90s, ranging between 89-93%. However clinically the patient is basically asymptomatic, he is afebrile, he is in normal sinus rhythm, chest x-ray shows diffuse interstitial infiltrates bilaterally. Lasix was given again today 40 mg IV push. And he was given Lasix yesterday. Again the patient is basically asymptomatic in spite of of his chest x-ray appearance and in spite of marginal O2 saturation. Electrolytes are normal, renal profile is normal liver enzymes are a bit elevated with AST of 283 ALT of 266 LDH is 2397 slightly better compared to yesterday. C-reactive protein is 84 improved compared to yesterday. CBC is relatively normal Reevaluated today on 08/23/19, patient remains on the high flow nasal cannula, remains in the ICU, and overall status is marginal at best. Patient is relatively asymptomatic. Hemodynamically stable, O2 saturation is up-to-date to 97% on 9 L high flow nasal cannula, and we cut down the high flow to 6 L. Chest x-ray continues to show diffuse bilateral infiltrates consistent with coronal v irus pneumonitis. Inflammatory markers were reviewed, LDH is 06/15/2007, ferritin is 5126, and C-reactive protein is 46. Basic metabolic profile is normal, CBC is relatively normal. The patient is seen today 08/24/2019 in follow-up on the regular medical floor. He is currently awake and alert in no acute distress. He is still requiring 15 L high flow nasal cannula to maintain O2 saturations in the 90s. He is currently afebrile. Hemodynamically stable. Blood culture reveals no growth. White count 7.4. Hemoglobin 13.1. Creatinine 0.76. AST 143. ALT 272. Creatinine kinase to 46. C-reactive protein 25. He is continued on ceftriaxone, IV Solu-Medrol, zinc. He has completed his course of Plaquenil. The patient is seen today 08/25/2019 in follow-up on the regular medical floor. He is currently resting comfortably in bed. States he is breathing a bit easier today compared to yesterday. Still requiring 11 L high flow nasal cannula to maintain O2 saturations in the 90s. He's been afebrile. Hemodynamically stable. Blood culture reveals no growth. White count 7.4. Hemoglobin 13.4. Platelets 270. Sodium 137. Potassium 4.5. Creatinine 0.72. AST 92. ALT 219 CK 238 C-reactive protein 16.6. D-dimer 3.00. He is currently on heparin for DVT prophylaxis. Remains on ceftriaxone, IV Solu-Medrol, zinc. The patient was seen and evaluated today 08/26/2019 in follow-up on the regular medical floor. He is currently sitting up in bed and appears comfortable. Remains afebrile. Currently on 11 L high flow nasal cannula with oxygen saturation 96%. Vital signs remained stable. Denies any pain or worsening shortness of breath. Detrol more 2.77 today which is down from yesterday. No other labs drawn today. Chest x-ray reveals scattered interstitial and alveolar infiltrates persisted without significant interval change. Remains on IV ceftriaxone and Solu-Medrol. On 08/27/2019 patient seen in follow-up on a general medical floor, he is resting comfortably in bed, no signs of any respiratory distress, FiO2 is down to 7 L on today's exam, his pulse ox is 91%, denies any cough, or chest pain, no fever hemodynamically he is stable, follow-up chest x-ray was obtained today showing stable multifocal infiltrates. No new labs today. Patient has completed a course of Plaquenil, he is completing his course of IV antibiotics in the form of Rocephin, and he remains on IV Solu-Medrol at 60 mg every 6 hours. On 08/28/2019 the patient was seen in follow-up on the general medical floor with Dr. Lynne. He is sitting up in bed resting comfortably in no acute distress. He was on 4 L nasal cannula with oxygen saturation 90%. Remains afebrile. Hemodynamically stable. D-dimer, LDH, CRP trending down, otherwise no new labs or x-rays completed today. States he is feeling good and wants to go home. On 08/29/2019 the patient was seen in follow-up on the general medical floor with Dr. Lynne. He is sitting up in the recliner in no acute distress. Denies any chest pain or increased shortness of breath. He was ambulated on 4 L nasal cannula with oxygen saturations dropping requiring increase in oxygen to 6 L high flow nasal cannula. Remains afebrile. Hemodynamically stable. No new labs or x-rays completed today. Patient is dressed in regular clothes and stating he would like to go home. Objective - Vital Signs Vital signs: Vital Signs Temp 97.9 F 08/29/19 07:00 Pulse 64 08/29/19 07:00 Resp 18 08/29/19 07:00 BP 119/74 08/29/19 07:00 Pulse Ox 91 L 08/29/19 07:00 Intake & Output 08/28/19 08/29/19 08/29/19 18:59 06:59 18:59 Intake Total 240 120 Output Total 300 Balance 240 -300 120 Intake: Oral 240 120 Output: Urine 300 Other: # Voids 3 - Constitutional Constitutional Comment(s): Sitting up in a recliner, appears comfortable General appearance: Present: cooperative, no acute distress - Respiratory Details: Lungs sounds diminished bilaterally. Respirations even, nonlabored. Currently on 6 L high flow nasal cannula with oxygen saturation 90%. Strong, nonproductive cough. - Cardiovascular Details: S1, S2 present. Regular rate and rhythm. Palpable peripheral pulses bilaterally. No edema present. No calf pain or tenderness noted. - Gastrointestinal Gastrointestinal Comment(s): Abdomen soft, nontender, nondistended. No organomegaly present. Active bowel sounds present 4 quadrants. Tolerating diet. - Integumentary Integumentary Comment(s): Skin is warm and dry - Neurologic Neurologic: Present: CNII-XII intact - Musculoskeletal Musculoskeletal: Present: gait normal, strength equal bilaterally - Psychiatric Psychiatric: Present: A&O x's 3, appropriate affect, intact judgment & insight - Allied health notes Allied health notes reviewed: nursing - Labs CBC & Chem 7: 08/25/19 07:12 08/25/19 07:12 Labs: Abnormal Lab Results - Last 24 Hours (Table) 08/28/19 08/28/19 08/28/19 Range/Units 06:44 12:07 17:12 POC Glucose (mg/dL) 280 H 167 H (75-99) mg/dL Ferritin 1307.0 H (22.0-322.0) ng/mL 08/28/19 08/29/19 Range/Units 20:34 07:09 POC Glucose (mg/dL) 166 H 116 H (75-99) mg/dL Ferritin (22.0-322.0) ng/mL Assessment and Plan Assessment: Acute hypoxic respiratory failure secondary to severe pneumonitis secondary to Covid 19 Benign essential hypertension Elevated liver enzymes secondary to covid 19 infection, trending down Elevated inflammatory markers for covid 19 pneumonitis, trending down Plan: The patient was seen and evaluated by Dr. Lynne Currently on 6 L high flow nasal cannula Continue prednisone 20 mg by mouth daily Stable from pulmonary standpoint From our standpoint patient should be discharged to home on home oxygen. He is at higher risk for nosocomial infections the longer he remains in the hospital. I, the cosigning physician, performed a history & physical examination of the patient. Lungs sounds are diminished bilaterally. Maintaining good O2 satura tions in the 90s on 6 L nasal cannula. I discussed the assessment and plan of care with my nurse practitioner, Juliet Solares. I attest to the above note as dictated by her. Time with Patient: Greater than 30
[2019-08-29 12:01] LABS: Glucose,Whole Blood 149 mg/dL (75-99)
[2019-08-29 16:55] LABS: Glucose,Whole Blood 220 mg/dL (75-99)
[2019-08-29] MEDS ORDERED: MELOXICAM 7.5 MG TAB PO PRN (18:10)
--- NOTE | 2019-08-29 18:10 | P.PN ---
Subjective Progress Note Date: 08/29/19 Principal diagnosis: Acute hypoxic respiratory failure Patient is an 83-year-old male with history of hypertension, gout, dyslipidemia who presented to [facility] one week of right upper quadrant pain and coughing. Patient was transferred to her facility as part of the colon would relieve process he had CT of the chest which showed patchy opacities bilaterally. Patient started on doxycycline hydroxychloroquine he had fevers up to 100.9 on the night of admission. Laboratory exam showed lymphopenia hyponatremia, elevated ferritin, transaminitis, elevated CPK, elevated CRP. Patient influenza A and B were negative. Chest x-ray showed bilateral interstitial infiltrates in the lower lobes. Abdominal ultrasound was negative patient continued to have fevers he completed his course of hydroxychloroquine patient became progressively hypoxic and on the eighth he was requiring high flow oxygen patient was given empiric IV antibiotics with Rocephin and steroids pulmonalis consult the patient's transfer to the ICU he was eventually downgraded on is currently on 4-6 L of oxygen but still continues to desaturate with ambulation Objective - Vital Signs Vital signs: Vital Signs Temp 98.2 F 08/29/19 15:00 Pulse 75 08/29/19 15:00 Resp 18 08/29/19 15:00 BP 116/68 08/29/19 15:00 Pulse Ox 97 08/29/19 15:00 Intake & Output 08/28/19 08/29/19 08/29/19 18:59 06:59 18:59 Intake Total 240 240 Output Total 300 Balance 240 -300 240 Intake: Oral 240 240 Output: Urine 300 Other: # Voids 3 3 - Constitutional General appearance: Present: thin - Respiratory Respiratory: bilateral: diminished - Cardiovascular Rhythm: regular - Gastrointestinal General gastrointestinal: Present: normal bowel sounds - Integumentary Integumentary: Present: normal - Psychiatric Psychiatric Comment(s): Limited because of language barrier - Labs CBC & Chem 7: 08/25/19 07:12 08/25/19 07:12 Labs: Abnormal Lab Results - Last 24 Hours (Table) 08/28/19 08/29/19 08/29/19 Range/Units 20:34 07:09 11:59 POC Glucose (mg/dL) 166 H 116 H 149 H (75-99) mg/dL 08/29/19 Range/Units 16:54 POC Glucose (mg/dL) 220 H (75-99) mg/dL Assessment and Plan (1) COVID-19 Narrative/Plan: Patient continues to be hypoxic on 4-6 L of oxygen with ambulation. Appreciate pulmonary input risk versus benefit given the patient is high risk as well for nosocomial infection. His completed his course of Plaquenil he is hypoxic with limited activity. Plan is for patient to go home with his will reevaluate in a.m. continue current treatment Current Visit: Yes Status: Acute Code(s): U07.1 - COVID-19 SNOMED Code(s): 342705352 Plan: 1. Coreg 19 pneumonia: Continue as above 2. Transaminitis was trending down we will reevaluate in a.m. 3. Hypertension: Continue outpatient regiment and titrate as needed 4. Acute hypoxic risks Igor: We'll evaluate in a.m. patient will need oxygen at home
[2019-08-29 20:39] LABS: Glucose,Whole Blood 162 mg/dL (75-99)
[2019-08-29] MEDS: ATORVASTATIN 40 MG TAB PO SCH (20:58)
[2019-08-30 07:09] LABS: Glucose,Whole Blood 108 mg/dL (75-99)
[2019-08-30] MEDS: INSULIN ASPART (NovoLOG) 100 UNIT/ML VIAL SQ SCH ×4 (07:09→21:10)
[2019-08-30] MEDS: ALLOPURINOL 100 MG TAB PO SCH (07:17)
[2019-08-30] MEDS: METOPROLOL TARTRATE 25 MG TAB PO SCH ×2 (07:17→21:23)
[2019-08-30] MEDS: LOSARTAN 50 MG TAB PO SCH (07:17)
[2019-08-30] MEDS: predniSONE 20 MG TAB PO SCH (07:17)
[2019-08-30] MEDS: ASPIRIN 81 MG PO SCH (07:17)
[2019-08-30 08:13] LABS: ALT 104 U/L (4-49); AST 46 U/L (17-59); African American GFR (CKD) >90 (>60 ml/min/1.73 sqM); Alkaline Phosphatase 68 U/L (38-126); Anion Gap 5 mmol/L; Blood Urea Nitrogen 37 mg/dL (9-20); Calcium 8.2 mg/dL (8.4-10.2); Carbon Dioxide 23 mmol/L (22-30); Chloride 108 mmol/L (98-107); Glucose 95 mg/dL (74-99); Non-African American GFR(CKD) 82 (>60 ml/min/1.73 sqM); Potassium 4.7 mmol/L (3.5-5.1); Sodium 136 mmol/L (137-145); Total Protein 6.1 g/dL (6.3-8.2)
--- NOTE | 2019-08-30 11:00 | P.PN ---
Subjective Progress Note Date: 08/30/19 Principal diagnosis: Acute CoVID 19 pneumonitis This is an 83-year-old white male who was transferred actually 4 days ago to our facility from [facility], patient was admitted initially with 1 week history of abdominal pain, and his pain was associated with cough, no diarrhea no nausea no vomiting. Patient also had fevers and chills, and dry cough. Apparently while at [facility], patient tested positive for covid 19, patient was treated with hydroxychloroquine, he also received Rocephin and doxycycline. Patient was transferred to our facility a few days ago, however his chest x-ray is showing significant worsening of his pneumonitis. And his O2 requirement has gone up over the last 4 days from 2 L to 11 L high flow nasal cannula. I evaluated the patient on the medical floor, patient did not seem to be in distress, however he is on a high flow nasal cannula, and his chest x-ray is concerning. Significantly worse over the last few days. Hence I recommended transferring the patient to the intensive care unit. In the meantime I have placed orders to address his pneumonitis. The patient himself is an extremely poor historian, hard of hearing, and could not answer any question I have asked him. Patient was reevaluated today on 08/21/19, patient is a positive covid 19 pneumonitis patient, with increased inflammatory markers, remains on high flow nasal cannula at 15 L/m, he seems to be in no form of distress, O2 saturation is marginal in the low 90s presently 92%. Patient has 0.9 normal saline at KVO, chest x-ray is showing slight improvement. Remains in normal sinus rhythm at 90 beats per minutes. On physical examination he has crackles at the bases. WBC count is 5.8 hemoglobin is 13.2 d-dimer is 0.89 slightly elevated. Ferritin is over 4400, continues to rise. LDH is rising now 2879 and C-reactive protein is rising at 166.0. Surprisingly, the patient does not seem to be in any distress, and he is relatively asymptomatic except for occasional cough. Reevaluated today on 08/22/19, patient remains in the ICU, he is on a high flow nasal cannula, and O2 saturation is in the low 90s, ranging between 89-93%. However clinically the patient is basically asymptomatic, he is afebrile, he is in normal sinus rhythm, chest x-ray shows diffuse interstitial infiltrates bilaterally. Lasix was given again today 40 mg IV push. And he was given Lasix yesterday. Again the patient is basically asymptomatic in spite of of his chest x-ray appearance and in spite of marginal O2 saturation. Electrolytes are normal, renal profile is normal liver enzymes are a bit elevated with AST of 283 ALT of 266 LDH is 2397 slightly better compared to yesterday. C-reactive protein is 84 improved compared to yesterday. CBC is relatively normal Reevaluated today on 08/23/19, patient remains on the high flow nasal cannula, remains in the ICU, and overall status is marginal at best. Patient is relatively asymptomatic. Hemodynamically stable, O2 saturation is up-to-date to 97% on 9 L high flow nasal cannula, and we cut down the high flow to 6 L. Chest x-ray continues to show diffuse bilateral infiltrates consistent with coronal v irus pneumonitis. Inflammatory markers were reviewed, LDH is 06/15/2007, ferritin is 5126, and C-reactive protein is 46. Basic metabolic profile is normal, CBC is relatively normal. The patient is seen today 08/24/2019 in follow-up on the regular medical floor. He is currently awake and alert in no acute distress. He is still requiring 15 L high flow nasal cannula to maintain O2 saturations in the 90s. He is currently afebrile. Hemodynamically stable. Blood culture reveals no growth. White count 7.4. Hemoglobin 13.1. Creatinine 0.76. AST 143. ALT 272. Creatinine kinase to 46. C-reactive protein 25. He is continued on ceftriaxone, IV Solu-Medrol, zinc. He has completed his course of Plaquenil. The patient is seen today 08/25/2019 in follow-up on the regular medical floor. He is currently resting comfortably in bed. States he is breathing a bit easier today compared to yesterday. Still requiring 11 L high flow nasal cannula to maintain O2 saturations in the 90s. He's been afebrile. Hemodynamically stable. Blood culture reveals no growth. White count 7.4. Hemoglobin 13.4. Platelets 270. Sodium 137. Potassium 4.5. Creatinine 0.72. AST 92. ALT 219 CK 238 C-reactive protein 16.6. D-dimer 3.00. He is currently on heparin for DVT prophylaxis. Remains on ceftriaxone, IV Solu-Medrol, zinc. The patient was seen and evaluated today 08/26/2019 in follow-up on the regular medical floor. He is currently sitting up in bed and appears comfortable. Remains afebrile. Currently on 11 L high flow nasal cannula with oxygen saturation 96%. Vital signs remained stable. Denies any pain or worsening shortness of breath. Detrol more 2.77 today which is down from yesterday. No other labs drawn today. Chest x-ray reveals scattered interstitial and alveolar infiltrates persisted without significant interval change. Remains on IV ceftriaxone and Solu-Medrol. On 08/27/2019 patient seen in follow-up on a general medical floor, he is resting comfortably in bed, no signs of any respiratory distress, FiO2 is down to 7 L on today's exam, his pulse ox is 91%, denies any cough, or chest pain, no fever hemodynamically he is stable, follow-up chest x-ray was obtained today showing stable multifocal infiltrates. No new labs today. Patient has completed a course of Plaquenil, he is completing his course of IV antibiotics in the form of Rocephin, and he remains on IV Solu-Medrol at 60 mg every 6 hours. On 08/28/2019 the patient was seen in follow-up on the general medical floor with Dr. Lynne. He is sitting up in bed resting comfortably in no acute distress. He was on 4 L nasal cannula with oxygen saturation 90%. Remains afebrile. Hemodynamically stable. D-dimer, LDH, CRP trending down, otherwise no new labs or x-rays completed today. States he is feeling good and wants to go home. On 08/29/2019 the patient was seen in follow-up on the general medical floor with Dr. Lynne. He is sitting up in the recliner in no acute distress. Denies any chest pain or increased shortness of breath. He was ambulated on 4 L nasal cannula with oxygen saturations dropping requiring increase in oxygen to 6 L high flow nasal cannula. Remains afebrile. Hemodynamically stable. No new labs or x-rays completed today. Patient is dressed in regular clothes and stating he would like to go home. On 08/30/2019 the patient was seen in follow-up in the general medical floor with Dr. Lynne. He is sitting up in a recliner in no acute distress. Denies any chest pain or increased shortness of breath. He does become slightly hypoxic with activity but recovers nicely once sitting back down. He is currently on 6 L high flow nasal cannula with oxygen saturation 93%. Remains afebrile, hemodynamically stable. No x-ray completed today. BUN 37, creatinine 0.8, sodium 136, ALT 104. Slightly frustrated as he would like to go home. Objective - Vital Signs Vital signs: Vital Signs Temp 97.4 F L 08/30/19 07:00 Pulse 67 08/30/19 07:00 Resp 18 08/30/19 07:15 BP 109/70 08/30/19 07:00 Pulse Ox 93 L 08/30/19 08:28 Intake & Output 08/29/19 08/30/19 08/30/19 18:59 06:59 18:59 Intake Total 240 300 Output Total 1 Balance 240 299 Intake: Oral 240 300 Output: Urine/Stool Mix 1 Other: Voiding Method Urinal # Voids 3 1 - Constitutional Constitutional Comment(s): Sitting up recliner in no acute distress, appears comfortable General appearance: Present: cooperative, no acute distress - Respiratory Details: Lungs sounds diminished bilaterally. Respirations even, nonlabored. Currently on 6 L high flow nasal cannula with oxygen saturation 93%. Strong, nonproductive cough. - Cardiovascular Details: S1, S2 present. Regular rate and rhythm. Palpable peripheral pulses bilaterally. No edema present. No calf pain or tenderness noted. - Gastrointestinal Gastrointestinal Comment(s): Abdomen soft, nontender, nondistended. No organomegaly present. Active bowel sounds present 4 quadrants. Tolerating diet. - Integumentary Integumentary Comment(s): Skin is warm and dry - Neurologic Neurologic: Present: CNII-XII intact - Musculoskeletal Musculoskeletal: Present: gait normal, strength equal bilaterally - Psychiatric Psychiatric: Present: A&O x's 3, appropriate affect, intact judgment & insight - Allied health notes Allied health notes reviewed: nursing - Labs CBC & Chem 7: 08/25/19 07:12 08/30/19 07:26 Labs: Abnormal Lab Results - Last 24 Hours (Table) 08/29/19 08/29/19 08/29/19 Range/Units 11:59 16:54 20:35 Sodium (137-145) mmol/L Chloride (98-107) mmol/L BUN (9-20) mg/dL POC Glucose (mg/dL) 149 H 220 H 162 H (75-99) mg/dL Calcium (8.4-10.2) mg/dL ALT (4-49) U/L Total Protein (6.3-8.2) g/dL Albumin (3.5-5.0) g/dL 08/30/19 08/30/19 Range/Units 07:07 07:26 Sodium 136 L (137-145) mmol/L Chloride 108 H (98-107) mmol/L BUN 37 H (9-20) mg/dL POC Glucose (mg/dL) 108 H (75-99) mg/dL Calcium 8.2 L (8.4-10.2) mg/dL ALT 104 H (4-49) U/L Total Protein 6.1 L (6.3-8.2) g/dL Albumin 3.0 L (3.5-5.0) g/dL Assessment and Plan Assessment: Acute hypoxic respiratory failure secondary to severe pneumonitis secondary to Covid 19 Benign essential hypertension Elevated liver enzymes secondary to covid 19 infection, trending down Elevated inflammatory markers for covid 19 pneumonitis, trending down Plan: The patient was seen and evaluated by Dr. Lynne Currently on 6 L high flow nasal cannula Continue prednisone 20 mg by mouth daily Stable from pulmonary standpoint From our standpoint patient should be discharged to home on home oxygen. He is at higher risk for nosocomial infections the longer he remains in the hospital. I, the cosigning physician, performed a history & physical examination of the patient. Lungs sounds are diminished bilaterally. Maintaining good O2 saturations in the 90s on 6 L nasal cannula. I discussed the assessment and plan of care with my nurse practitioner, Juliet Solares. I attest to the above note as dictated by her. Time with Patient: Greater than 30
[2019-08-30 11:48] LABS: Glucose,Whole Blood 123 mg/dL (75-99)
[2019-08-30 16:30] LABS: Glucose,Whole Blood 192 mg/dL (75-99)
--- NOTE | 2019-08-30 17:14 | P.PN ---
Subjective Progress Note Date: 08/30/19 Principal diagnosis: Acute Covid pneumonitis Patient is a 3-year-old male who was transferred from [facility] with 1 week of abdominal pain and cough while patient was. He was tested positive for COVID 19. Patient was treated hydroxychloroquine Rocephin and doxycycline patient throughout his hospitalization continued to have high oxygen requirement. He was transferred to the intensive care unit on admission. Patient is medically optimized he was transferred out of the medical ICU and has remained on the general medical saucedo. He is currently afebrile and hypoxic worse with activity. Objective - Vital Signs Vital signs: Vital Signs Temp 97.9 F 08/30/19 15:00 Pulse 74 08/30/19 15:00 Resp 18 08/30/19 15:00 BP 97/64 08/30/19 15:00 Pulse Ox 95 08/30/19 15:00 Intake & Output 08/29/19 08/30/19 08/30/19 18:59 06:59 18:59 Intake Total 240 300 476 Output Total 1 200 Balance 240 299 276 Weight 82.1 kg Intake: Oral 240 300 476 Output: Urine 200 Urine/Stool Mix 1 Other: Voiding Method Urinal # Voids 3 1 - Constitutional General appearance: Present: no acute distress - Respiratory Respiratory: bilateral: rhonchi - Cardiovascular Rhythm: regular - Gastrointestinal General gastrointestinal: Present: normal bowel sounds - Neurologic Neurologic: Present: CNII-XII intact - Musculoskeletal Musculoskeletal: Present: gait normal - Psychiatric Psychiatric: Present: appropriate affect - Labs CBC & Chem 7: 08/25/19 07:12 08/30/19 07:26 Labs: Abnormal Lab Results - Last 24 Hours (Table) 08/29/19 08/30/19 08/30/19 Range/Units 20:35 07:07 07:26 Sodium 136 L (137-145) mmol/L Chloride 108 H (98-107) mmol/L BUN 37 H (9-20) mg/dL POC Glucose (mg/dL) 162 H 108 H (75-99) mg/dL Calcium 8.2 L (8.4-10.2) mg/dL ALT 104 H (4-49) U/L Total Protein 6.1 L (6.3-8.2) g/dL Albumin 3.0 L (3.5-5.0) g/dL 08/30/19 08/30/19 Range/Units 11:47 16:28 Sodium (137-145) mmol/L Chloride (98-107) mmol/L BUN (9-20) mg/dL POC Glucose (mg/dL) 123 H 192 H (75-99) mg/dL Calcium (8.4-10.2) mg/dL ALT (4-49) U/L Total Protein (6.3-8.2) g/dL Albumin (3.5-5.0) g/dL Assessment and Plan (1) COVID-19 Narrative/Plan: Covid 19 pneumonitis patient still remains hypoxic with minimal ambulation is requiring 4-6 L of oxygen. Patient was evaluated by me this morning at that time he was hypoxic we'll continue to monitor overnight Current Visit: Yes Status: Acute Code(s): U07.1 - COVID- SNOMED Code(s): 964535203 Plan: Hypertension: Continue outpatient regiment and titrate as needed patient on losartan and metoprolol Covid pneumonitis: Appreciate pulmonary input confused oral steroids will repeat chest x-ray I've discussed with embedded case manager and we have oxygen set up in 4 impatiens ready to go home we'll monitor overnight and reevaluate in a.m.
--- NOTE | 2019-08-30 17:46 | XR ---
EXAMINATION TYPE: XR chest 1V DATE OF EXAM: 08/30/2019 COMPARISON: 08/27/2019 HISTORY: 83-year-old male with hypoxia TECHNIQUE: Single frontal view of the chest is obtained. FINDINGS: Slight leftward patient rotation. Continued patchy peripheral right lung densities and patchy airspac e opacity left mid and lower lung, not significantly changed in the interval. Heart borderline in siz e. 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 IMPRESSION: Similar patchy and confluent bilateral infiltrates, in the periphery of the right lung and within the mid and lower left lung. Suspect background of COPD.
[2019-08-30 20:56] LABS: Glucose,Whole Blood 125 mg/dL (75-99)
[2019-08-30] MEDS: ATORVASTATIN 40 MG TAB PO SCH (21:23)
[2019-08-31 06:52] LABS: Glucose,Whole Blood 127 mg/dL (75-99)
[2019-08-31 06:52] LABS: Basophils % (A) 0 %; Eosinophils # (A) 0.2 k/uL (0-0.7); Eosinophils % (A) 2 %; HCT 45.1 % (39.0-53.0); HGB 14.1 gm/dL (13.0-17.5); Hypochromasia Slight; Lymphocytes # (A) 1.3 k/uL (1.0-4.8); Lymphocytes % (A) 14 %; MCHC 31.2 g/dL (31.0-37.0); MCV 73.7 fL (80.0-100.0); Mean Platelet Volume 7.3; Microcytosis Slight; Monocytes # (A) 0.6 k/uL (0-1.0); Monocytes % (A) 7 %; Neutrophils # (A) 7.1 k/uL (1.3-7.7); Neutrophils % (A) 76 %; Platelet Count 213 k/uL (150-450); RBC 6.12 m/uL (4.30-5.90); RDW 14.5 % (11.5-15.5); WBC 9.3 k/uL (3.8-10.6)
[2019-08-31 07:10] LABS: African American GFR (CKD) >90 (>60 ml/min/1.73 sqM); Anion Gap 8 mmol/L; Blood Urea Nitrogen 30 mg/dL (9-20); Calcium 8.2 mg/dL (8.4-10.2); Carbon Dioxide 24 mmol/L (22-30); Chloride 103 mmol/L (98-107); Glucose 127 mg/dL (74-99); Non-African American GFR(CKD) 83 (>60 ml/min/1.73 sqM); Potassium 4.4 mmol/L (3.5-5.1); Sodium 135 mmol/L (137-145)
[2019-08-31 07:37] VITALS: BP 112/67; PULSE 65; RESP 17; TEMP 97.7
[2019-08-31] MEDS: INSULIN ASPART (NovoLOG) 100 UNIT/ML VIAL SQ SCH (09:49)
[2019-08-31] MEDS: METOPROLOL TARTRATE 25 MG TAB PO SCH (09:52)
[2019-08-31] MEDS: LOSARTAN 50 MG TAB PO SCH (09:52)
[2019-08-31] MEDS: predniSONE 20 MG TAB PO SCH (09:53)
[2019-08-31] MEDS: ASPIRIN 81 MG PO SCH (09:53)
[2019-08-31] MEDS: ALLOPURINOL 100 MG TAB PO SCH (09:53)
[2019-08-31 11:49] LABS: Glucose,Whole Blood 154 mg/dL (75-99)
--- NOTE | 2019-08-31 13:08 | PN ---
PROGRESS NOTE PULMONARY/CRITICAL CARE PROGRESS NOTE: DATE OF SERVICE: 08/31/2019 The patient is again is again seen in the room. The patient seems to be doing relatively well. He is currently on 4 L nasal cannula. He does seem to desaturate when he is up walking around. He is hoping to be discharged soon. He denies any shortness of breath, chest tightness, wheezing, cough, phlegm production. No fever, chills, nausea, vomiting, diarrhea, or chest pain. Currently on 4 L saturations are mid 90s. He will be up to the [facility] physician group to determine whether not he should be discharged. He himself is feeling well. He does have help at home if he does get discharged home. Current vital signs are reviewed. His temperature is 97.7, heart rate 65, respiratory rate 17, blood pressure 112/67 mean 82 and 4 L saturation is 96%. Appears in no acute distress. HEENT: Examination is grossly unremarkable. Mucous membranes are moist. No nasal O2 noted. NECK: Supple full range of motion. No adenopathy. CARDIOVASCULAR: Examination reveals regular rhythm and rate. S1, S2 normal. No S3, S4, or murmur. LUNGS: Reveal a few scattered rhonchi. No wheezes or crackles. ABDOMEN: Soft, bowel sounds are heard. No masses or tenderness. EXTREMITIES: Intact. No cyanosis, clubbing, or edema. SKIN: Without rash. NEUROLOGIC: Examination is brief but nonfocal. LABS: Reviewed. White count 9.3, hemoglobin 14.1, hematocrit 45.1, platelet count normal. Sodium 135, potassium 4.4, chloride 103, CO2 is 24, anion gap is 8. BUN and creatinine were 30 and 0.78. Microbiologic studies are negative. The most recent chest x-ray from August 29, shows some patchy bilateral infiltrates. CURRENT MEDICATIONS: Reviewed. He is only on Tylenol, Zyloprim, aspirin, Lipitor, insulin, losartan, Mobic, metoprolol, and Narcan. ASSESSMENT: 1. Acute hypoxemic respiratory failure secondary to COVID-19 pneumonia/pneumonitis, recovered. 2. Benign essential hypertension. 3. Elevated liver enzymes secondary to COVID-19 infection. 4. Elevated inflammatory markers secondary to COVID-19 pneumonia. 5. Refractory, [id number] hypoxemia, secondary to COVID-19 pneumonia, which should resolve over time. PLAN: The patient is doing well from our perspective. The patient is currently on just a few medications. The patient may be discharged home in the next few days. Follow up in our office once we start seeing patients again. He will need a followup chest x-ray down the road. Additional recommendations and suggestions are forthcoming. Will likely be discharged home with oxygen. Will follow. DYLAN / VIVIANE: [phone] /
--- NOTE | 2019-08-31 13:17 | P.DS ---
Providers Date of admission: 08/16/19 19:38 Expected date of discharge: 08/31/19 Attending physician: Gloria Barker DO Consults: 08/20/19 15:07 Consult Physician Stat Consulting Provider: Stanford Birch Reason/Comments: COVID respiratory failure Do you want consulting provider notified?: Yes Primary care physician: Stated None - Discharge Diagnosis(es) (1) COVID-19 Patient is a 83-year-old [place] male with a history of hypertension controlled with medications, go to and dyslipidemia protect presented plan Clomid 1 week history of right upper quadrant pain and coughing. Patient was transferred to our facility as part of the Covid relief process. He a CT of the chest which showed patchy opacities bilaterally. He was started on doxycycline and hy droxychloroquine. Status: Acute Hospital Course: On the night of admission patient is febrile to 1.9. Laboratory analysis showed lymphopenia, hyponatremia, elevated ferritin, CRP of 32.4. Influenza A and B were negative. Chest x-ray showed interstitial infiltrate in the lower lungs. Patient had abdominal ultrasound which did not show any evidence of acute disease. Patient continued to spike fevers he started to have increased O2 demand was started on empiric IV antibiotics as well as Rocephin was also started on steroids. Patient was then transferred to the intensive care unit where he was monitored he was able to be transferred to the general medical floor. Patient continued to require oxygen 4-6 L liters and desaturated with m inimal activity however he was monitored for the last few days on the general medical floor he has remained stable on his current oxygen settings and has remained afebrile. Repeat chest x-ray was 17 showed similar patchy bilateral infiltrate. Periphery of the right lung within the mid and lower left lung with a suspicion of likely background of COPD. Since patient is remained stable he will be going home with supplemental oxygen needs outpatient follow-up chest x- ray On the day of discharge patient is alert and oriented with a temperature of 97.7, respiratory rate of 17, blood pressure 112/67, 96% on 4 L of oxygen Time spent the day of discharge 35 minutes Patient Condition at Discharge: Fair Plan - Discharge Summary Discharge Rx Participant: Yes New Discharge Prescriptions: New predniSONE [Deltasone] See Taper PO DAILY #7 tab Continue Multivitamins, Thera [Multivitamin (formulary)] 1 tab PO DAILY Celecoxib [CeleBREX] 100 mg PO BID PRN PRN Reason: Pain Aspirin EC [Ecotrin Low Dose] 81 mg PO DAILY Metoprolol Tartrate 25 mg PO BID Irbesartan [Avapro] 150 mg PO DAILY Atorvastatin [Lipitor] 40 mg PO HS Allopurinol [Zyloprim] 100 mg PO DAILY Discharge Medication List Allopurinol [Zyloprim] 100 mg PO DAILY 08/16/19 [History] Aspirin EC [Ecotrin Low Dose] 81 mg PO DAILY 08/16/19 [History] Atorvastatin [Lipitor] 40 mg PO HS 08/16/19 [History] Celecoxib [CeleBREX] 100 mg PO BID PRN 08/16/19 [History] Irbesartan [Avapro] 150 mg PO DAILY 08/16/19 [History] Metoprolol Tartrate 25 mg PO BID 08/16/19 [History] Multivitamins, Thera [Multivitamin (formulary)] 1 tab PO DAILY 08/16/19 [History] predniSONE [Deltasone] See Taper PO DAILY #7 tab 08/28/19 [Rx] Follow up Appointment(s)/Referral(s): [facility],Equipment [NON-STAFF] - (Supply O2 and Walker) [facility], [NON-STAFF] - Patient Instructions/Handouts: Viral Pneumonia (DC) Discharge Disposition: HOME WITH HOME HEALTH SERVICES
== END 2019-08-31 12:44 | disposition home health service (06) | DRG 177 ==
LOC: 4SSUR 19:38 → 2SICU 08-20 16:02 → 4SSUR 08-23 16:12
PROVIDERS: ADMIT Internal Medicine; ATTEND Internal Medicine
DX: U07.1 COVID-19 (principal); J12.89 Other viral pneumonia; J96.01 Acute respiratory failure with hypoxia; E87.1 Hypo-osmolality and hyponatremia; J44.0 Chronic obstructive pulmonary disease with (acute) lower respiratory infection; M10.9 Gout, unspecified; D69.59 Other secondary thrombocytopenia; D72.810 Lymphocytopenia; E78.5 Hyperlipidemia, unspecified; E86.1 Hypovolemia; H91.90 Unspecified hearing loss, unspecified ear; I10 Essential (primary) hypertension; Z79.82 Long term (current) use of aspirin; Z79.899 Other long term (current) drug therapy; Z87.891 Personal history of nicotine dependence; R94.5 Abnormal results of liver function studies
CPT/HCPCS: 71045; 76700; 80048; 80053; 81001; 82550; 82728; 83615; 83735; 83880; 84100; 84145; 84484; 85025; 85379; 85610; 86140; 87040; 87502; 93005; 94760